=== PATIENT | female | born 1935 | race Caucasian/White ===

== ENCOUNTER → 2017-08-16 | Outpatient (CLI) | payer MEDICARE, BC ==
--- NOTE | 2017-08-17 13:15 | MM ---
Reason for exam: screening (asymptomatic). Last mammogram was performed 1 year and 1 month ago. History: Patient is postmenopausal and has history of breast cancer at age 80. Malignant MG pre op needle loc RT of the right breast, August 19, 2015. Malignant MG stereo VAD BX RT of the right breast, August 11, 2015. Took estrogen for 6 months beginning at age 57. Physical Findings: A clinical breast exam by your physician is recommended on an annual basis and results should be correlated with mammographic findings. MG 3D Screening Mammo W/Cad Bilateral CC and MLO view(s) were taken. Prior study comparison: July 22, 2016, bilateral MG 3d diag mammo w/cad SABINE. July 24, 2015, right breast MG work up mamm w CAD RT. The breast tissue is heterogeneously dense. This may lower the sensitivity of mammography. No significant changes when compared with prior studies. ASSESSMENT: Negative, BI-RAD 1 RECOMMENDATION: Follow-up diagnostic mammogram of both breasts in 1 year.
== END | disposition home or self-care (01) ==
LOC: RADMAMWWP 08:35
PROVIDERS: ATTEND Family Medicine
DX: Z12.31 Encounter for screening mammogram for malignant neoplasm of breast (principal)
CPT/HCPCS: 77063; G0202

== ENCOUNTER → 2018-10-08 | Outpatient (CLI) | payer MEDICARE, BC ==
--- NOTE | 2018-10-08 14:00 | MM ---
Reason for exam: additional evaluation requested from prior study. Last mammogram was performed 1 year and 2 months ago. History: Patient is postmenopausal and has history of breast cancer at age 80. Malignant MG pre op needle loc RT of the right breast, August 19, 2015. Malignant MG stereo VAD BX RT of the right breast, August 11, 2015. Took estrogen for 6 months beginning at age 57. Physical Findings: Nurse did not find any significant physical abnormalities on exam. MG 3D Diag Mammo W/Cad SABINE Bilateral CC and MLO view(s) were taken. XCCL view(s) were taken of the right breast. Prior study comparison: August 16, 2017, bilateral MG 3d screening mammo w/cad. July 22, 2016, bilateral MG 3d diag mammo w/cad SABINE. The breast tissue is heterogeneously dense. This may lower the sensitivity of mammography. No significant changes when compared with prior studies. ASSESSMENT: Benign, BI-RAD 2 RECOMMENDATION: Follow-up diagnostic mammogram of both breasts in 1 year.
--- NOTE | 2018-10-08 15:38 | BD ---
EXAMINATION TYPE: Axial Bone Density DATE OF EXAM: 10/08/2018 CLINICAL HISTORY: Screening for osteoporosis, Z 13.820 Height: 59inches Weight: 133 FRAX RISK QUESTIONS: Alcohol (3 or more units per day): no Family History (Parent hip fracture): no Glucocorticoids (More than 3mos): as needed...patient has not used for about a year (Ex: prednisone, prednisolone, methylprednisolone, dexamethasone, and hydrocortisone). History of Fracture in Adulthood: ribs Secondary Osteoporosis: 1. Type 1 Diabetes: no 2. Hyperthyroidism: no 3. Menopause before 45: no 4. Malnutrition: no 5. Chronic liver disease: no Rheumatoid Arthritis: yes Current Tobacco Use: no RISK FACTORS HISTORY OF: Family History of Osteoporosis: unsure Active: yes Diet low in dairy products/other sources of calcium: at least one serving a day Postmenopausal woman: yes Take estrogen and/or progesterone medications: not now How long: about 6 months Lost more than 2 inches in height since high school: no Frequent falls: no Poor Health: no Hyperparathyroidism: no Adrenal Insufficiency: no MEDICATIONS: Prednisone or other steroids: as needed, patient has not used for over a year Thyroid Medications: no Osteoporosis Medications: no Additional Medications: blood pressure, cholesterol , pill for CA,; Antineoplastic Additional History: Breast CA age 80 EXAM MEASUREMENTS: Bone mineral densitometry was performed using the [employer] System. Bone mineral density as measured about the Lumbar spine is: ----- L1-L4(G/cm2): 1.278 T Score Values are as follows: ----- L2: 0.4 ----- L3: 1.5 ----- L4: 1.4 ----- L1-L4: 0.8 Bone mineral density has: Increased 1.6% since study of: 10/06/2016 Bone mineral density about the R hip (g/cm2): 1.052 Bone mineral density about the L hip (g/cm2): 1.058 T Score values are as follows: -----R Neck: 0.1 -----L Neck: 0.1 -----R Total: 1.1 -----L Total: 1.3 Bone mineral density has: Decreased -2.7% since study of: 10/06/2016 IMPRESSION: Normal (Values between +1 and -1 indicate normal bone mass). Consider repeating this study in 5 year s or sooner if there is some new clinical indication. NOTE: T-SCORE=SD OF THE YOUNG ADULT MEAN.
== END | disposition home or self-care (01) ==
LOC: RADMAMWWP 12:37
PROVIDERS: ATTEND Family Medicine
DX: C50.919 Malignant neoplasm of unspecified site of unspecified female breast (principal); Z13.820 Encounter for screening for osteoporosis
CPT/HCPCS: 77080; 77066; G0279; 77062

== ENCOUNTER → 2019-10-30 | Outpatient (CLI) | payer BC, MEDICARE ==
--- NOTE | 2019-10-31 09:50 | MM ---
Reason for exam: additional evaluation requested from prior study. Last mammogram was performed 1 year and 1 month ago. History: Patient is postmenopausal and has history of breast cancer at age 80. Family history of breast cancer in daughter at age 62. Malignant MG pre op needle loc RT of the right breast, August 19, 2015. Malignant MG stereo VAD BX RT of the right breast, August 11, 2015. Took estrogen for 6 months beginning at age 57. Physical Findings: Nurse did not find any significant physical abnormalities on exam. MG 3D Diag Mammo W/Cad SABINE Bilateral CC and MLO view(s) were taken. Prior study comparison: October 08, 2018, bilateral MG 3d diag mammo w/cad SABINE. August 16, 2017, bilateral MG 3d screening mammo w/cad. The breast tissue is heterogeneously dense. This may lower the sensitivity of mammography. Benign appearing bilateral calcifications. No suspicious abnormality. Post surgical change on the right breast. These results were verbally communicated with the patient and result sheet given to the patient on 10/30/19. ASSESSMENT: Benign, BI-RAD 2 RECOMMENDATION: Follow-up diagnostic mammogram of both breasts in 1 year.
== END | disposition home or self-care (01) ==
LOC: RADMAMWWP 12:20
PROVIDERS: ATTEND Family Medicine
DX: R92.8 Other abnormal and inconclusive findings on diagnostic imaging of breast (principal)
CPT/HCPCS: 77066; G0279; 77062

== ENCOUNTER → 2020-11-25 | Outpatient (CLI) | payer MEDICARE ==
--- NOTE | 2020-11-30 11:00 | MM ---
Reason for exam: screening (asymptomatic). Last mammogram was performed 1 year and 1 month ago. History: Patient is postmenopausal and has history of breast cancer at age 80. Family history of breast cancer in daughter at age 62. Malignant MG pre op needle loc RT of the right breast, August 19, 2015. Malignant MG stereo VAD BX RT of the right breast, August 11, 2015. Took estrogen for 6 months beginning at age 57. Physical Findings: A clinical breast exam by your physician is recommended on an annual basis and results should be correlated with mammographic findings. MG 3D Screening Mammo W/Cad Bilateral CC and MLO view(s) were taken. Prior study comparison: October 30, 2019, bilateral MG 3d diag mammo w/cad SABINE. October 08, 2018, bilateral MG 3d diag mammo w/cad SABINE. The breast tissue is heterogeneously dense. This may lower the sensitivity of mammography. Gradually increasing grouped calcifications right posterior upper outer quadrant. ASSESSMENT: Incomplete: need additional imaging evaluation, BI-RAD 0 RECOMMENDATION: Special view mammogram of the right breast. (magnification view) If lesion persists on supplemental views, image directed ultrasound is recommended. [facility] will attempt to contact patient to return for supplemental views and ultrasound if indicated.
== END | disposition home or self-care (01) ==
LOC: RADMAMWWP 09:46
PROVIDERS: ATTEND Family Medicine
DX: Z12.31 Encounter for screening mammogram for malignant neoplasm of breast (principal)
CPT/HCPCS: 77063; 77067

== ENCOUNTER → 2020-12-14 | Outpatient (CLI) | payer MEDICARE ==
--- NOTE | 2020-12-15 11:52 | MM ---
Reason for exam: additional evaluation requested from abnormal screening. Last mammogram was performed 1 month ago. History: Patient is postmenopausal and has history of breast cancer at age 80. Family history of breast cancer in daughter at age 62. Malignant MG pre op needle loc RT of the right breast, August 19, 2015. Malignant MG stereo VAD BX RT of the right breast, August 11, 2015. Took estrogen for 6 months beginning at age 57. Took antineoplastic for 5 years. Physical Findings: Nurse did not find any significant physical abnormalities on exam. MG 3D Work Up W/Cad RT Spot compression CC, spot compression LM, and ML view(s) were taken of the right breast. Prior study comparison: November 25, 2020, bilateral MG 3d screening mammo w/cad. October 30, 2019, bilateral MG 3d diag mammo w/cad SABINE. October 08, 2018, bilateral MG 3d diag mammo w/cad SABINE. August 16, 2017, bilateral MG 3d screening mammo w/cad. The breast tissue is heterogeneously dense. This may lower the sensitivity of mammography. Grouped heterogeneous calcifications posterior upper outer quadrant have increased, biopsy recommended. These results were verbally communicated with the patient and result sheet given to the patient on 12/14/20. ASSESSMENT: Suspicious, BI-RAD 4 RECOMMENDATION: Stereotactic core biopsy of the right breast. Called Dr. Clark's office with mammographic findings and has scheduled an appointment for the patient for 12/24/20 at 10:[address] Camarillo. PRELIMINARY REPORT CALLED AND FAXED TO DR. CAMARILLO ON 12/15/20.
== END | disposition home or self-care (01) ==
LOC: RADMAMWWP 13:59
PROVIDERS: ATTEND Family Medicine
DX: R92.8 Other abnormal and inconclusive findings on diagnostic imaging of breast (principal)
CPT/HCPCS: 77065; G0279; 77061

== ENCOUNTER → 2021-01-11 | Day surgery (SDC) | payer MEDICARE ==
[2021-01-11 07:27] VITALS: RESP 16; TEMP 97.8
[2021-01-11 08:43] VITALS: BP 136/73; PULSE 69
--- NOTE | 2021-01-11 11:22 | PCN ---
PROCEDURE NOTE DATE OF SERVICE: 01/11/2021 PREOPERATIVE DIAGNOSIS: Abnormal mammogram, right breast. POSTOPERATIVE DIAGNOSIS: Abnormal mammogram, right breast. PROCEDURE: Right stereotactic breast biopsy with marker placement. ANESTHESIA: Local anesthetic. COMPLICATIONS: None. SPECIMEN: Breast tissue. FINDINGS AND PROCEDURE: The patient is an 85-year-old female who had a mammogram performed showing a change with microcalcifications in the breast. She is taken to the stereotactic suite where the area of concern is marked by the radiologist. The breast was then prepped. The needle is placed in the appropriate position. Local anesthetic was instilled in the skin and breast tissue. A skin josefa was made and the needle was advanced the appropriate depth. Pre and postfire films were obtained showing the needle to be in good position. Multiple vacuum-assisted automated cores were then obtained. The specimen mammography did show multiple calcifications had been removed. A marker is then placed and the needle is withdrawn. The mammogram showed the needle to be in good placement. Pressure is held and a dressing was applied. She tolerated the procedure without difficulty and follow up with me in the office for further recommendations. MMODL / IJN: [id number] /
--- NOTE | 2021-01-11 11:34 | MM ---
EXAMINATION TYPE: MG stereo VAD BX RT DATE OF EXAM: 01/11/2021 COMPARISON: 11/25/2020 and 12/14/2020 CLINICAL HISTORY: 85-year-old female referred for stereotactic core needle biopsy of right breast microcalcifications. TECHNIQUE: Stereotactic guided core biopsy of the posterior upper outer quadrant right breast microcalcifications. FINDINGS: The procedure of stereotactic guided core biopsy was explained to the patient. Benefits, alternatives, and risks were discussed. An informed consent was then obtained. [facility] was [facility]. Shortness pathway was a lateral approach. I performed the localization, then surgeon, Dr. Camarillo performed the remainder of the procedure. A vacuum assisted biopsy gun was used to obtain multiple core samples. The patient tolerated the procedure well without any immediate complication. The patient was kept in the radiology department for short stay after the procedure and then discharged home in stable condition. Targeted calcifications are identified in specimen mammogram. Post biopsy mammogram shows clip migration 3 cm laterally and 1 cm superiorly. Some minimal residual calcifications indicate the site of biopsy. IMPRESSION: SUCCESSFUL, UNCOMPLICATED STEREOTACTIC GUIDED CORE BIOPSY OF RIGHT BREAST POSTERIOR UPPER OUTER QUADRANT MICROCALCIFICATIONS. NOTE CLIP MIGRATION (3 CM LATERAL AND 1 CM SUPERIOR MIGRATION). FULL PATHOLOGY RESULTS TO FOLLOW. 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 Recommendation Surgical consult of the right breast. MTDD
== END ==
LOC: RADMAMWWP 07:10
PROVIDERS: ATTEND Surgery
DX: D05.11 Intraductal carcinoma in situ of right breast (principal)
CPT/HCPCS: 88305; 88342; 88341; 19081; A4648; J2001

== ENCOUNTER → 2021-01-25 | Outpatient (CLI) | payer MEDICARE | END | disposition home or self-care (01) | LOC: LABWHC1 12:58 | PROVIDERS: ATTEND Surgery | DX: Z20.822 Contact with and (suspected) exposure to COVID-19 (principal) | CPT/HCPCS: U0003; C9803; U0005 ==

== ENCOUNTER 2021-02-01 10:17 | Day surgery (SDC) | payer MEDICARE ==
[2021-01-25 14:56] VITALS: BMI 28.3
[~2021-02-01 10:17] MED LIST: DEXAMETHASONE SOD PHOSPHATE 4 MG/ML 1 ML VIAL IV ONE; HYDROmorphone 0.5 MG/0.5 ML SYRINGE IVP PRN; LACTATED RINGERS 1,000 ML IV SCH; LIDOCAINE 1% (10MG/ML) FOR IV START INTRADERMA PRN; MIDAZOLAM 2 MG/2 ML VIAL IV PRN; ONDANSETRON 4 MG/2 ML VIAL IVP ONE; Pre Op ABX Message 1 EACH MISC MISCELLANE ONE
[2021-02-01 11:04] LABS: Glucose,Whole Blood 116 mg/dL (75-99)
[2021-02-01] MEDS ORDERED: ALPRAZolam 0.25 MG TAB ONE (11:41)
[2021-02-01] MEDS ORDERED: LIDOCAINE 1% INJ 10MG/ML (20 ML MDV) SQ ONE (12:07)
[2021-02-01] MEDS ORDERED: LIDOCAINE 1% INJ 10MG/ML (20 ML MDV) ONE (12:45)
[2021-02-01] MEDS ORDERED: fentaNYL (PF) 50 MCG/ML 2 ML AMP ONE (12:45)
[2021-02-01] MEDS ORDERED: PROPOFOL 10 MG/ML 20 ML VIAL IV ONE (12:45)
[2021-02-01] MEDS ORDERED: ePHEDrine SULFATE/0.9% NACL/PF 50 MG/5 ML SYRINGE IV ONE (12:45)
[2021-02-01] MEDS ORDERED: BUPIVACAIN-EPI 0.5%-1:200,000 30 ML VIAL SQ ONE ×2 (13:16)
--- NOTE | 2021-02-01 13:47 | P.OP ---
Date of Procedure: 02/01/21 Preoperative Diagnosis: DCIS right breast Postoperative Diagnosis: DCIS right breast Procedure(s) Performed: Needle localized excisional biopsy right breast Anesthesia: FRANNIE Surgeon: Sade Camarillo Estimated Blood Loss (ml): 1 Pathology: other Condition: stable Disposition: PACU Indications for Procedure: The patient is an 85 year old female who had a stereotactic biopsy showing DCIS for which an excisional biopsy was recommended Description of Procedure: The patient had the area of concern needle localized by the radiologist. She is then taken to the OR where she is prepped and draped in the usual sterile manner. Local anesthetic is instilled into the skin and breast tissue. A small skin incision was made. The breast tissue is sharply excised down to the end of the needle and guidewire. The tissue around the end of the guidewire is then dissected free. The guidewire was brought up through the incision and the specimen is removed from the breast. The specimen is tagged and sent for mammography. Specimen mammography showed the area of concern to be within the excised specimen. The lumpectomy was down to the pectoralis fascia. The majority of the breast was fatty tissue, with some denser components. Small bleeding points were then controlled with electrocautery. The skin was closed with 4-0 Vicryl in a subcuticular manner. Steri-Strips and dressings were applied. She tolerated the procedure without difficulty and was taken recovery room in satisfactory condition. According to or personnel, all counts WERE correct. Plan - Discharge Summary Discharge Rx Participant: No New Discharge Prescriptions: New traMADol HCL 1 - 2 mg PO Q6HR PRN #10 tablet PRN Reason: Pain No Action Ibuprofen [Advil] 400 mg PO DIRECTED PRN PRN Reason: Pain amLODIPine [Norvasc] 5 mg PO HS Simvastatin [Zocor] 10 mg PO HS Multivitamins, Thera [Theragran] 1 each PO DAILY Cholecalciferol [Vitamin D3] 3,000 unit PO DAILY Aspirin EC [Ecotrin] 81 mg PO HS Lisinopril-Hctz 20-25 mg [Zestoretic 20-25] 1 each PO QAM Biotin 5 mg PO DAILY Benadryl (Unknown Dose) 1 tab PO HS PRN PRN Reason: Sinus Symptoms Discharge Medication List Aspirin EC [Ecotrin] 81 mg PO HS 08/17/15 [History] Benadryl (Unknown Dose) 1 tab PO HS PRN 08/17/15 [History] Biotin 5 mg PO DAILY 08/17/15 [History] Cholecalciferol [Vitamin D3] 3,000 unit PO DAILY 08/17/15 [History] Ibuprofen [Advil] 400 mg PO DIRECTED PRN 08/17/15 [History] Lisinopril-Hctz 20-25 mg [Zestoretic 20-25] 1 each PO QAM 08/17/15 [History] Multivitamins, Thera [Theragran] 1 each PO DAILY 08/17/15 [History] Simvastatin [Zocor] 10 mg PO HS 08/17/15 [History] amLODIPine [Norvasc] 5 mg PO HS 08/17/15 [History] traMADol HCL 1 - 2 mg PO Q6HR PRN #10 tablet 02/01/21 [Rx] Follow up Appointment(s)/Referral(s): Sade Camarillo DO [Doctor of Osteopathic Medicine] - 1 Week Activity/Diet/Wound Care/Special Instructions: Ice to the incision for 24 hours. Keep the dressing on until Monday. Starting Monday the dressing may be removed and you may shower. Where a well supporting bra. Expect some bruising. Call if questions or concerns Discharge Disposition: HOME SELF-CARE
[2021-02-01 13:53] VITALS: TEMP 97.6
[2021-02-01 14:56] VITALS: BP 136/74; PULSE 67; RESP 18
--- NOTE | 2021-02-01 17:33 | MM ---
EXAMINATION TYPE: MG pre op needle loc RT, MG surgical specimen RT DATE OF EXAM: 02/01/2021 COMPARISON: 12/14/2020 and 11/25/2020. 01/11/2021. CLINICAL HISTORY: 84-year-old female referred for needle localization for excision of biopsy-proven D CIS in the upper outer quadrant of the right breast. TECHNIQUE: Needle localization with wire placement and surgical excision of area of concern in the up per outer quadrant of the right breast. FINDINGS: The procedure of needle localization with wire placement and than surgical excision was exp lained to the patient. Benefits, alternatives, and risks were discussed. An informed consent was th en obtained. We note the lateral clip migration on the previous postbiopsy mammogram images. The residual microcal cifications were targeted for excision rather than the clip. The shortest pathway for procedure was chosen. Shortest pathway was a lateral approach. The overlyin g skin was prepped and draped in usual sterile fashion. Lidocaine was used as anesthetic into the sk in and subcutaneous tissue up to the level of area of concern. A 7 cm Kopans needle was used. It wa s placed via a lateral approach under mammographic guidance. Subsequent 90 degrees mammogram show th e needle to be in satisfactory position relative to the targeted area. At this point, wire was deplo yed. The needle was left in place per Dr. Camarillo's request. A cup was secured over the wire-needle com bination. Images were marked for surgeon. The patient tolerated the procedure well without any immediate complication. The patient was kept in the radiology department for short stay after the procedure and then taken to surgery for surgical e xcision. Targeted calcifications and wire are identified in specimen mammogram. The clip which had migrated a nd was located more laterally is not included in the specimen. This is satisfactory. The patient was kept in hospital for short stay after the procedure and then discharged home in stable condition. IMPRESSION: Successful, uncomplicated needle localization with wire placement and surgical excision of biopsy-pro kaykay right upper outer quadrant microcalcifications/DCIS. Note that the postbiopsy clip which had migr ated is not included in the specimen, so a biopsy clip will be visualized on future mammograms. Full pathology results to follow.
== END 2021-02-01 15:17 | disposition home or self-care (01) ==
LOC: OR 10:17
PROVIDERS: ATTEND Surgery
DX: D05.11 Intraductal carcinoma in situ of right breast (principal); Z79.82 Long term (current) use of aspirin; Z79.899 Other long term (current) drug therapy
CPT/HCPCS: 19301; 76098; 19281; J2405; J2001; J3010; J2704

== ENCOUNTER → 2021-04-07 | Outpatient (CLI) | payer MEDICARE ==
--- NOTE | 2021-04-07 15:40 | XR ---
EXAMINATION TYPE: XR wrist complete BILATERAL DATE OF EXAM: 04/07/2021 CLINICAL HISTORY: pain TECHNIQUE: Frontal, lateral and oblique images of the left wrist are obtained. COMPARISON: None. FINDINGS: There is no acute fracture/dislocation evident. The joint spaces appear narrowed. The ov erlying soft tissue appears unremarkable. IMPRESSION: There is no acute fracture or dislocation seen. ICD 10 NO FRACTURE, INITIAL EVALUATION
== END | disposition home or self-care (01) ==
LOC: RADXRMAIN 14:47
PROVIDERS: ATTEND Family Medicine
DX: M25.532 Pain in left wrist (principal); M25.531 Pain in right wrist

== ENCOUNTER → 2021-11-01 | Outpatient (CLI) | payer MEDICARE ==
--- NOTE | 2021-11-01 11:50 | MM ---
Reason for exam: additional evaluation requested from prior study. Last mammogram was performed 11 months ago. History: Patient is postmenopausal and has history of breast cancer at age 85. Family history of breast cancer in daughter at age 62. Malignant MG pre op needle loc RT of the right breast, February 01, 2021. Lumpectomy of the right breast, February 01, 2021. Malignant MG stereo VAD BX RT of the right breast, January 11, 2021. Malignant MG pre op needle loc RT of the right breast, August 19, 2015. Malignant MG stereo VAD BX RT of the right breast, August 11, 2015. Took estrogen for 6 months beginning at age 57. Took antineoplastic for 5 years beginning at age 80. Physical Findings: Nurse did not find any significant physical abnormalities on exam. MG 3D Diag Mammo W/Cad SABINE Bilateral CC and MLO view(s) were taken. XCCL view(s) were taken of the right breast. Prior study comparison: December 14, 2020, right breast MG 3d work up w/cad RT. November 25, 2020, bilateral MG 3d screening mammo w/cad. The breast tissue is heterogeneously dense. This may lower the sensitivity of mammography. Stable benign calcifications. There is no discrete abnormality. No significant new findings when compared with previous films. These results were verbally communicated with the patient and result sheet given to the patient on 11/01/21. ASSESSMENT: Benign, BI-RAD 2 RECOMMENDATION: Routine screening mammogram of both breasts in 1 year.
== END | disposition home or self-care (01) ==
LOC: RADMAMWWP 10:36
PROVIDERS: ATTEND Radiology Radiation Oncology
DX: R92.1 Mammographic calcification found on diagnostic imaging of breast (principal); R92.2 Inconclusive mammogram; Z85.3 Personal history of malignant neoplasm of breast; Z80.3 Family history of malignant neoplasm of breast; Z78.0 Asymptomatic menopausal state
CPT/HCPCS: 77066; G0279; 77062

== ENCOUNTER → 2022-03-07 | Outpatient (CLI) | payer MEDICARE ==
--- NOTE | 2022-03-08 16:47 | BD ---
EXAMINATION TYPE: Axial Bone Density DATE OF EXAM: 03/07/2022 COMPARISON: 10/08/2018 CLINICAL HISTORY: 86 years year old Female. ICD-10 CODE: Z78.0 ASYMPTOMATIC MENOPAUSAL STATE Height: 59 IN Weight: 145 LBS FRAX RISK QUESTIONS: Rheumatoid Arthritis: YES RISK FACTORS HISTORY OF: Active: LIMITED Postmenopausal woman: AGE 52 MEDICATIONS: Additional Medications: CALCIUM, VIT D, BLOOD PRESSURE MEDS, CHOLESTEROL MEDS, Additional History: BREAST CANCER EXAM MEASUREMENTS: Bone mineral densitometry was performed using the [employer] System. Bone mineral density as measured about the Lumbar spine is: ----- L1-L4(G/cm2): 1.285 T Score Values are as follows: ----- L1: -0.2 ----- L2: 1.5 ----- L3: 1.5 ----- L4: 0.5 ----- L1-L4: 0.9 Bone mineral density has: Decreased -0.1% since study of: 10/08/2018 Bone mineral density about the R hip (g/cm2): 1.058 Bone mineral density about the L hip (g/cm2): 1.048 T Score values are as follows: -----R Neck: 0.1 -----L Neck: 0.1 -----R Total: 1.2 -----L Total: 1.4 Bone mineral density has: Increased 1.3% since study of: 10/08/2018 FRAX%s: The graph provided illustrates a 15.7 chance for a major osteoporotic fx and a 2.4 chance for the hips probability for fx in 10 years time. IMPRESSION: Normal (Values between +1 and -1 indicate normal bone mass). Consider repeating this study in 5 year s or sooner if there is some new clinical indication. NOTE: T-SCORE=SD OF THE YOUNG ADULT MEAN.
== END | disposition home or self-care (01) ==
LOC: RADBDWWP 15:33
PROVIDERS: ATTEND Family Medicine
DX: Z78.0 Asymptomatic menopausal state (principal)
CPT/HCPCS: 77080

== ENCOUNTER 2022-03-10 14:41 | Inpatient (IN) | payer MEDICARE ==
--- NOTE | 2022-03-10 15:10 | ED ---
General Adult HPI - General Chief complaint: Shortness of Breath Stated complaint: PAULA Time Seen by Provider: 03/10/22 14:45 Source: patient, family, RN notes reviewed, old records reviewed Mode of arrival: wheelchair Limitations: no limitations - History of Present Illness Initial comments: This is an 86-year-old female who states she's been getting progressively more more short of breath over the last 6 months per patient states over the last month is been rapidly progressing and over the last 4 days she can barely walk 3 steps across the floor without being significantly short of breath. Patient went to see her primary medical care doctor today in the primary medical care doctor sent her to the emergency department to be evaluated. Patient denies any chest pain but she does complain of some posterior left thoracic pain. Patient states that sharp in nature. Patient denies any recent fever chills or cough. Patient denies abdominal pain patient denies nausea vomiting diarrhea. Patient denies any lightheadedness or dizziness. Patient states she used to be a smoker 24 years ago when she smoked for approximately 40 years. - Related Data Home Medications Medication Instructions Recorded Confirmed Aspirin EC [Ecotrin] 81 mg PO DAILY 08/17/15 03/10/22 Lisinopril-Hctz 20-25 mg 1 tab PO DAILY 08/17/15 03/10/22 [Zestoretic 20-25] Multivitamins, Thera [Theragran] 1 tab PO DAILY 08/17/15 03/10/22 Simvastatin [Zocor] 10 mg PO HS 08/17/15 03/10/22 amLODIPine [Norvasc] 5 mg PO HS 08/17/15 03/10/22 Ascorbic Acid [Vitamin C] 500 mg PO BID 03/10/22 03/10/22 Calcium Carbonate [Calcium] 600 mg PO BID 03/10/22 03/10/22 Cholecalciferol [Vitamin D3 (125 125 mcg PO DAILY 03/10/22 03/10/22 Mcg = 5000 Iu)] Magnesium 250 mg PO BID 03/10/22 03/10/22 Allergies Allergy/AdvReac Type Severity Reaction Status Date / Time STEROID DOSE PACK Allergy Mild Rash/Hives Uncoded 03/10/22 16:07 Review of Systems ROS Statement: Those systems with pertinent positive or pertinent negative responses have been documented in the HPI. ROS Other: All systems not noted in ROS Statement are negative. Past Medical History Past Medical History: Cancer, Hyperlipidemia, Hypertension, Osteoarthritis (OA), Pneumonia Additional Past Medical History / Comment(s): HX PNEUMONIA X6, CANCER RT BREAST History of Any Multi-Drug Resistant Organisms: None Reported Past Surgical History: Breast Surgery, Cholecystectomy, Hysterectomy Additional Past Surgical History / Comment(s): RT BREAST BX.. Right breast lumpectomy Past Anesthesia/Blood Transfusion Reactions: No Reported Reaction, Motion Sickness Past Psychological History: Depression Smoking Status: Former smoker - Past Family History Sister(s) Family Medical History: Cancer Additional Family Medical History / Comment(s): OVARIAN CA Brother(s) Family Medical History: Cancer Additional Family Medical History / Comment(s): BROTHER #1 KIDNEY CA. BROTHER #2 PROSTATE CA Daughter(s) Family Medical History: Cancer Additional Family Medical History / Comment(s): OVARIAN CANCER, breast cancer Mother Family Medical History: Myocardial Infarction (MD) General Exam - General Exam Comments Initial Comments: GENERAL: Patient is well-developed and well-nourished. Patient is nontoxic and well- hydrated and is in mild distress. ENT: Neck is soft and supple. No significant lymphadenopathy is noted. Oropharynx is clear. Moist mucous membranes. Neck has full range of motion without eliciting any pain. EYES: The sclera were anicteric and conjunctiva were pink and moist. Extraocular movements were intact and pupils were equal round and reactive to light. Eyelids were unremarkable. PULMONARY: Unlabored respirations. Good breath sounds bilaterally. Diminished breath sounds left base CARDIOVASCULAR: There is a regular rate and rhythm without any murmurs gallops or rubs. ABDOMEN: Soft and nontender with normal bowel sounds. SKIN: Skin is clear with no lesions or rashes and otherwise unremarkable. NEUROLOGIC: Patient is alert and oriented x3. Cranial nerves II through XII are grossly intact. Motor and sensory are also intact. Normal speech, volume and content. Symmetrical smile. MUSCULOSKELETAL: Normal extremities with adequate strength and full range of motion. LYMPHATICS: No significant lymphadenopathy is noted PSYCHIATRIC: Normal psychiatric evaluation. Limitations: no limitations Course Vital Signs 03/10/22 03/10/22 03/10/22 14:43 14:55 14:56 Temperature 95.9 F L Pulse Rate 94 Respiratory 28 H 22 Rate Blood Pressure 163/89 O2 Sat by Pulse 90 L 94 L Oximetry 03/10/22 03/10/22 03/10/22 15:00 15:01 16:00 Temperature Pulse Rate 90 90 86 Respiratory 20 18 20 Rate Blood Pressure 143/89 138/101 O2 Sat by Pulse 97 98 97 Oximetry 03/10/22 17:00 Temperature Pulse Rate 75 Respiratory 18 Rate Blood Pressure 129/79 O2 Sat by Pulse 96 Oximetry Medical Decision Making - Medical Decision Making EKG shows sinus rhythm at [address] interval is 153 QRSs 83 QT interval is 353 QTC is 406. Patient's EKG shows no ST segment elevation or depression. Chest x-ray shows a large left-sided pleural effusion. Patient had an elevated d-dimer psychotic CAT scan of the chest that showed the same large effusion and no other acute issue. I spoke with Dr. Javed he agreed to admit the patient admitted the patient I consult pulmonary. - Lab Data Result diagrams: 03/10/22 15:08 03/10/22 15:08 Lab Results 03/10/22 03/10/22 03/10/22 Range/Units 15:08 15:08 15:08 WBC 8.8 (3.8-10.6) k/uL RBC 4.90 (3.80-5.40) m/uL Hgb 16.4 H (11.4-16.0) gm/dL Hct 47.3 H (34.0-46.0) % MCV 96.6 (80.0-100.0) fL MCH 33.6 (25.0-35.0) pg MCHC 34.8 (31.0-37.0) g/dL RDW 13.0 (11.5-15.5) % Plt Count 344 (150-450) k/uL MPV 7.1 Neutrophils % 77 % Lymphocytes % 14 % Monocytes % 5 % Eosinophils % 1 % Basophils % 1 % Neutrophils # 6.8 (1.3-7.7) k/uL Lymphocytes # 1.3 (1.0-4.8) k/uL Monocytes # 0.5 (0-1.0) k/uL Eosinophils # 0.1 (0-0.7) k/uL Basophils # 0.0 (0-0.2) k/uL PT 10.7 (9.0-12.0) sec INR 1.0 (<1.2) APTT 23.5 (22.0-30.0) sec D-Dimer 2.45 H (<0.60) mg/L FEU Sodium 136 L (137-145) mmol/L Potassium 3.7 (3.5-5.1) mmol/L Chloride 96 L (98-107) mmol/L Carbon Dioxide 29 (22-30) mmol/L Anion Gap 11 mmol/L BUN 15 (7-17) mg/dL Creatinine 0.89 (0.52-1.04) mg/dL Est GFR (CKD-EPI)AfAm 69 (>60 ml/min/1.73 sqM) Est GFR (CKD-EPI)NonAf 60 (>60 ml/min/1.73 sqM) Glucose 157 H (74-99) mg/dL Plasma Lactic Acid Wesly (0.7-2.0) mmol/L Calcium 9.6 (8.4-10.2) mg/dL Magnesium 1.9 (1.6-2.3) mg/dL Total Bilirubin 0.7 (0.2-1.3) mg/dL AST 32 (14-36) U/L ALT 24 (4-34) U/L Alkaline Phosphatase 69 (38-126) U/L Troponin I (0.000-0.034) ng/mL NT-Pro-B Natriuret Pep pg/mL Total Protein 7.5 (6.3-8.2) g/dL Albumin 4.5 (3.5-5.0) g/dL 03/10/22 03/10/22 03/10/22 Range/Units 15:08 15:08 15:08 WBC (3.8-10.6) k/uL RBC (3.80-5.40) m/uL Hgb (11.4-16.0) gm/dL Hct (34.0-46.0) % MCV (80.0-100.0) fL MCH (25.0-35.0) pg MCHC (31.0-37.0) g/dL RDW (11.5-15.5) % Plt Count (150-450) k/uL MPV Neutrophils % % Lymphocytes % % Monocytes % % Eosinophils % % Basophils % % Neutrophils # (1.3-7.7) k/uL Lymphocytes # (1.0-4.8) k/uL Monocytes # (0-1.0) k/uL Eosinophils # (0-0.7) k/uL Basophils # (0-0.2) k/uL PT (9.0-12.0) sec INR (<1.2) APTT (22.0-30.0) sec D-Dimer (<0.60) mg/L FEU Sodium (137-145) mmol/L Potassium (3.5-5.1) mmol/L Chloride (98-107) mmol/L Carbon Dioxide (22-30) mmol/L Anion Gap mmol/L BUN (7-17) mg/dL Creatinine (0.52-1.04) mg/dL Est GFR (CKD-EPI)AfAm (>60 ml/min/1.73 sqM) Est GFR (CKD-EPI)NonAf (>60 ml/min/1.73 sqM) Glucose (74-99) mg/dL Plasma Lactic Acid Wesly 1.6 (0.7-2.0) mmol/L Calcium (8.4-10.2) mg/dL Magnesium (1.6-2.3) mg/dL Total Bilirubin (0.2-1.3) mg/dL AST (14-36) U/L ALT (4-34) U/L Alkaline Phosphatase (38-126) U/L Troponin I <0.012 (0.000-0.034) ng/mL NT-Pro-B Natriuret Pep 196 pg/mL Total Protein (6.3-8.2) g/dL Albumin (3.5-5.0) g/dL Disposition Clinical Impression: Pleural effusion, Dyspnea, Hypoxia Disposition: ADMITTED IP TO THIS HOSP Referrals: Violeta Clark MD [Primary Care Provider] - 1-2 days Time of Disposition: 19:17
[2022-03-10 15:17] LABS: Basophils % (A) 1 %; Eosinophils # (A) 0.1 k/uL (0-0.7); Eosinophils % (A) 1 %; HCT 47.3 % (34.0-46.0); HGB 16.4 gm/dL (11.4-16.0); Lymphocytes # (A) 1.3 k/uL (1.0-4.8); Lymphocytes % (A) 14 %; MCH 33.6 pg (25.0-35.0); MCHC 34.8 g/dL (31.0-37.0); MCV 96.6 fL (80.0-100.0); Mean Platelet Volume 7.1; Monocytes # (A) 0.5 k/uL (0-1.0); Monocytes % (A) 5 %; Neutrophils # (A) 6.8 k/uL (1.3-7.7); Neutrophils % (A) 77 %; Platelet Count 344 k/uL (150-450); WBC 8.8 k/uL (3.8-10.6)
[2022-03-10 15:29] LABS: Albumin 4.5 g/dL (3.5-5.0); Calcium 9.6 mg/dL (8.4-10.2); Magnesium 1.9 mg/dL (1.6-2.3); Potassium 3.7 mmol/L (3.5-5.1); Total Bilirubin 0.7 mg/dL (0.2-1.3); Total Protein 7.5 g/dL (6.3-8.2)
[2022-03-10 15:31] LABS: Partial Thromboplastin Time 23.5 sec (22.0-30.0); Prothrombin Time 10.7 sec (9.0-12.0)
--- NOTE | 2022-03-10 15:43 | XR ---
EXAMINATION TYPE: XR chest 2V DATE OF EXAM: 03/10/2022 COMPARISON: NONE HISTORY: Shortness of breath TECHNIQUE: Frontal and lateral views of the chest are obtained. FINDINGS: Large left-sided pleural effusion with suspected adjacent pulmonary atelectasis. Underlying left lung lesion cannot be excluded. Mild cardiomediastinal shift to the right side. No right-sided pleural ef fusion. Suspected 8 mm calcified granuloma at the medial aspect of the right lung base. No definite pneumotho rax. Cardiac size cannot be properly assessed. Aortic atherosclerotic calcifications. Questionable ba ckground of COPD changes. IMPRESSION: Large left-sided pleural effusion, for further workup. Other findings as described above.
--- NOTE | 2022-03-10 17:14 | CT ---
EXAMINATION TYPE: CT chest angio for PE CT DLP: 285.7 mGycm, Automated exposure control for dose reduction was used. DATE OF EXAM: 03/10/2022 4:59 PM COMPARISON: Chest radiograph from same day. CLINICAL INDICATION:Female, 86 years old with history of Difficulty breathing, elevated d-dimer; Diff iculty breathing. TECHNIQUE/CONTRAST: CTA scan of the thorax is performed with IV Contrast, patient injected with 80 mL of Isovue 370, pulm onary embolism protocol. MIP images are created and reviewed. FINDINGS: Pulmonary Artery: There is no evidence for a filling defect within the pulmonary vasculature to sugge st acute pulmonary embolism. The pulmonary artery is of normal size. Lungs/Pleura: Persistent large left pleural effusion with associated atelectasis. Minimal aeration of the left upper lobe . Right lung demonstrates nodular like area of consolidation within the right up per lobe posteriorly along with scattered groundglass opacities most pronounced in the middle lobe. T he more consolidation area measures up to 13 mm. Groundglass area measures approximately 18 mm. Airway: Large airways are patent. Heart: Within normal limits for size.. Vasculature: No evidence of aortic aneurysm. Mediastinum: No gross evidence of adenopathy. Musculoskeletal: No acute osseous abnormalities. Multilevel disc degeneration changes are present. Soft Tissues: Unremarkable. Lower neck: No significant findings. Upper Abdomen: Scattered calcified granulomas in the liver. The uterus surgically absent. Scattered g ranulomas in the spleen. IMPRESSION: 1. No evidence of pulmonary embolism. 2. Large left pleural effusion with near complete is atelectasis of the left lung. 3. Left upper lobe nodule which is indeterminate short-term follow-up in 3 months is recommended to e nsure stability. Additional follow-up of right middle lobe groundglass nodule at the same time is rec ommended.
[2022-03-10] MEDS ORDERED: SODIUM CHLORIDE 0.9% 1,000 ML IV ONE (19:18)
[2022-03-10] MEDS ORDERED: ATORVASTATIN 10 MG TAB PO SCH (21:00)
[2022-03-10] MEDS ORDERED: amLODIPine 5 MG TAB PO SCH (21:00)
[2022-03-10] MEDS: CALCIUM CARBONATE 500 MG CHEWABLE PO SCH (21:57)
[2022-03-10] MEDS: ASCORBIC ACID 500 MG TAB PO SCH (21:57)
[2022-03-10] MEDS: MAGNESIUM OXIDE 400 MG TAB PO SCH (21:57)
[2022-03-11 07:30] VITALS: RESP 18
--- NOTE | 2022-03-11 08:14 | US ---
EXAMINATION TYPE: US chest DATE OF EXAM: 03/11/2022 COMPARISON: NONE chest x-ray from yesterday CLINICAL HISTORY: Markings for thoracentesis by pulmonary staff. pleural effusion TECHNIQUE: Targeted ultrasound of the posterior lower bilateral hemithoraces EXAM MEASUREMENTS: Right Pleural Effusion pocket size: 0cm Left Pleural Effusion pocket size: 9.9 cm Left skin surface to fluid distance: 3.0 cm Right side NOT marked for possible thoracentesis outside the dept. Left side marked for possible thoracentesis outside the dept. Pulmonologists are able to review the images in the patient?s EMR. No significant right-sided pleural effusion. Large left-sided pleural effusion. Findings correlate wi th x-ray one day earlier. IMPRESSIONS: As above.
[2022-03-11] MEDS ORDERED: ASPIRIN 81 MG PO SCH (09:00)
[2022-03-11] MEDS ORDERED: CHOLECALCIFEROL 125 MCG (5000 IU) TABLET PO SCH (09:00)
[2022-03-11] MEDS ORDERED: LISINOPRIL-HCTZ 20-25 MG 1 EACH TAB PO SCH (09:00)
[2022-03-11] MEDS ORDERED: MULTIVITAMINS, THERA 1 EACH TAB PO SCH (09:00)
[2022-03-11] MEDS ORDERED: guaiFENesin-Coden 100-10MG/5ML 10 ML CUP PO PRN (09:20)
[2022-03-11 09:21] LABS: Basophils # (A) 0.08 X 10*3/uL (0.00-0.10); Basophils % (A) 0.9 %; Eosinophils # (A) 0.24 X 10*3/uL (0.04-0.35); Eosinophils % (A) 2.6 %; HCT 41.8 % (37.2-46.3); HGB 14.1 g/dL (12.0-15.0); Immature Grans, Automated 0.4 %; Lymphocytes # (A) 1.23 X 10*3/uL (0.90-5.00); Lymphocytes % (A) 13.5 %; MCH 32.3 pg (27.0-32.0); MCHC 33.7 g/dL (32.0-37.0); MCV 95.9 fL (80.0-97.0); Mean Platelet Volume 9.6 fL (9.5-12.2); Monocytes # (A) 1.03 X 10*3/uL (0.20-1.00); Monocytes % (A) 11.3 %; NRBC Per 100 WBC 0 /100 WBCS (0.0-0.0); Neutrophils # (A) 6.51 X 10*3/uL (1.80-7.70); Neutrophils % (A) 71.3 %; Platelet Count 300 X 10*3/uL (140-440); RBC 4.36 X 10*6/uL (4.10-5.20); RDW 12.5 % (11.5-14.5); WBC 9.13 X 10*3/uL (4.50-10.00)
[2022-03-11 09:29] LABS: Albumin 3.9 g/dL (3.8-4.9); Albumin/Globulin Ratio 1.88 (1.60-3.17); Anion Gap 13.3 mmol/L (10.00-18.00); BUN/Creat Ratio 19.24 Ratio (12.00-20.00); Blood Urea Nitrogen 14.7 mg/dL (9.0-27.0); Carbon Dioxide 25.3 mmol/L (20.0-27.5); Globulin 2.1 g/dL (1.6-3.3); Non-African American GFR(CKD) 71.6 (60.0-200.0); Potassium 3.5 mmol/L (3.5-5.5); Total Bilirubin 0.2 mg/dL (0.30-1.20)
[2022-03-11] MEDS: CALCIUM CARBONATE 500 MG CHEWABLE PO SCH (09:32)
[2022-03-11] MEDS: ASCORBIC ACID 500 MG TAB PO SCH (09:32)
[2022-03-11] MEDS: MAGNESIUM OXIDE 400 MG TAB PO SCH (09:32)
--- NOTE | 2022-03-11 09:48 | XR ---
EXAMINATION TYPE: XR chest 1V portable DATE OF EXAM: 03/11/2022 CLINICAL HISTORY: Left-sided thoracentesis . TECHNIQUE: Single AP portable upright view of the chest is obtained. COMPARISON: Chest x-ray from one day earlier and older studies. FINDINGS: Small left-sided pleural effusion after thoracentesis. No pneumothorax seen. Associated co mpressive atelectasis is present. Patchy right basilar opacity again seen. Cardiomegaly noted. Osseou s structures are intact. IMPRESSION: Improved left-sided pleural effusion after thoracentesis. No pneumothorax is evident.
--- NOTE | 2022-03-11 09:52 | P.HPIM ---
History of Present Illness H&P Date: 03/11/22 Chief Complaint: shortness of breath this 86-year-old female patient of Dr. Clark who presented with concerns of ongoing shortness of breath. Patient reports that original shortness of breath started about 6 months ago but has progressively increased over the past 4 days . states she presented to her PCP who directed her to the ER for further evaluation. Patient has has medical history of breast cancer, hyperlipidemia, hypertension, osteoarthritis, pneumonia and ex-smoker.chest x-ray performed in ER showing large left-sided pleural effusionErie CT of the chest performed showing no evidence of pulmonary embolism. Large left pleural effusion with near complete atelectasis of left lung. Left upper lobe nodule which is indeterminate short-term follow-up in 3 months is recommended. Troponin was negative BNP 196. Pulmonary services have been consulted. Patient underwent thoracentisis 1.8 L removed. Patient reports significant improvement with shortness of breath. At this time patient denies chest pain. Patient reports coughing. Patient denies nausea vomiting or diarrhea. Patient denies any urinary burning or frequency Review of Systems please refer to HPI otherwise unremarkable Past Medical History Past Medical History: Cancer, Hyperlipidemia, Hypertension, Osteoarthritis (OA), Pneumonia Additional Past Medical History / Comment(s): HX PNEUMONIA X6, CANCER RT BREAST History of Any Multi-Drug Resistant Organisms: None Reported Past Surgical History: Appendectomy, Breast Surgery, Cholecystectomy, Hyste rectomy Additional Past Surgical History / Comment(s): RT BREAST BX.. Right breast lumpectomy Past Anesthesia/Blood Transfusion Reactions: No Reported Reaction, Motion Sickness Past Psychological History: Depression Additional Psychological History / Comment(s): PAST HX OF DEPRESSION, not current Smoking Status: Former smoker Past Alcohol Use History: None Reported Additional Past Alcohol Use History / Comment(s): quit smoking age 62 Past Drug Use History: None Reported - Past Family History Sister(s) Family Medical History: Cancer Additional Family Medical History / Comment(s): OVARIAN CA Brother(s) Family Medical History: Cancer Additional Family Medical History / Comment(s): BROTHER #1 KIDNEY CA. BROTHER #2 PROSTATE CA Daughter(s) Family Medical History: Cancer Additional Family Medical History / Comment(s): OVARIAN CANCER, breast cancer Mother Family Medical History: Myocardial Infarction (NE) Medications and Allergies Home Medications Medication Instructions Recorded Confirmed Type Aspirin EC [Ecotrin] 81 mg PO DAILY 08/17/15 03/10/22 History Lisinopril-Hctz 20-25 mg 1 tab PO DAILY 08/17/15 03/10/22 History [Zestoretic 20-25] Multivitamins, Thera [Theragran] 1 tab PO DAILY 08/17/15 03/10/22 History Simvastatin [Zocor] 10 mg PO HS 08/17/15 03/10/22 History amLODIPine [Norvasc] 5 mg PO HS 08/17/15 03/10/22 History Ascorbic Acid [Vitamin C] 500 mg PO BID 03/10/22 03/10/22 History Calcium Carbonate [Calcium] 600 mg PO BID 03/10/22 03/10/22 History Cholecalciferol [Vitamin D3 (125 125 mcg PO DAILY 03/10/22 03/10/22 History Mcg = 5000 Iu)] Magnesium 250 mg PO BID 03/10/22 03/10/22 History Allergies Allergy/AdvReac Type Severity Reaction Status Date / Time STEROID DOSE PACK Allergy Mild Rash/Hives Uncoded 03/10/22 16:07 Physical Exam Vitals: Vital Signs Temp Pulse Pulse Resp BP BP Pulse Ox 03/11/22 07:58 18 03/11/22 07:25 97.5 F L 69 18 121/71 94 L 03/11/22 01:10 98.0 F 72 17 118/66 97 03/10/22 21:09 98.1 F 68 21 150/74 95 03/10/22 20:01 98.1 F 72 18 123/74 98 03/10/22 17:00 75 18 129/79 96 03/10/22 16:00 86 20 138/101 97 03/10/22 15:01 90 18 98 03/10/22 15:00 90 20 143/89 97 03/10/22 14:56 22 03/10/22 14:55 94 L 03/10/22 14:43 95.9 F L 94 28 H 163/89 90 L Intake and Output 03/10/22 03/11/22 03/11/22 22:59 06:59 14:59 Other: Voiding Method Bedside Commode Bedside Commode Bedpan Bedpan # Voids 1 Weight 64.41 kg Head normocephalic Neck supple Lungs clear to auscultation bilaterally no wheezing or crackles Heart regular rate and rhythm S1-S2, no rub or gallop Abdomen is soft nontender nondistended positive bowel sounds no hepatosplenomegaly Extremities no edema Neuro alert and orientated to 3 Results CBC & Chem 7: 03/11/22 05:12 03/11/22 05:07 Labs: Abnormal Lab Results - Last 24 Hours (Table) 03/10/22 03/10/22 03/10/22 Range/Units 15:08 15:08 15:08 Hgb 16.4 H (11.4-16.0) gm/dL Hct 47.3 H (34.0-46.0) % MCH (27.0-32.0) pg Monocytes # (0.20-1.00) X 10*3/uL D-Dimer 2.45 H (<0.60) mg/L FEU Sodium 136 L (137-145) mmol/L Chloride 96 L (98-107) mmol/L Glucose 157 H (74-99) mg/dL Total Bilirubin (0.30-1.20) mg/dL Total Protein (6.2-8.2) g/dL 03/11/22 03/11/22 Range/Units 05:07 05:12 Hgb (11.4-16.0) gm/dL Hct (34.0-46.0) % MCH 32.3 H (27.0-32.0) pg Monocytes # 1.03 H (0.20-1.00) X 10*3/uL D-Dimer (<0.60) mg/L FEU Sodium (137-145) mmol/L Chloride (98-107) mmol/L Glucose 127 H (74-99) mg/dL Total Bilirubin 0.20 L (0.30-1.20) mg/dL Total Protein 6.0 L (6.2-8.2) g/dL Thrombosis Risk Factor Assmnt - Choose All That Apply Any of the Below Risk Factors Present?: Yes Each Factor Represents 1 point: Medical pt on bed rest, Obesity (BMI >25), Serious lung disease incl. pneumonia (< 1month) Each Risk Factor Represents 3 Points: Age 75 years or older Thrombosis Risk Factor Assessment Total Risk Factor Score: 6 Thrombosis Risk Factor Assessment Level: High Risk Assessment and Plan Assessment: 1. Shortness of breath secondary to large left pleural effusion status post the thoracetisis with 1.8 L removed on 03/11/2022. 2. History of hyperlipidemia maintained on statin 3. History of essential hypertension 4. History of breast cancer 5. History of pneumonia 6. History of nicotine dependence DVT prophylaxis Lovenox. GI prophylaxis Protonix pulmonary services following Time with Patient: Greater than 30 (Greater than 60% of the total time spent in counseling and coordination of care)
--- NOTE | 2022-03-11 10:55 | P.DS ---
Providers Date of admission: 03/10/22 19:18 Expected date of discharge: 03/11/22 Attending physician: Dung Javed Consults: 03/10/22 19:18 Consult Physician Urgent Consulting Provider: Israel Breen Consult Reason/Comments: Pleural effusion Do you want consulting provider notified?: Yes Primary care physician: Violeta Clark Hospital Course: discharge diagnosis 1. Shortness of breath secondary to large left pleural effusion status post the thoracetisis with 1.8 L removed on 03/11/2022. 2. History of hyperlipidemia maintained on statin 3. History of essential hypertension 4. History of breast cancer 5. History of pneumonia 6. History of nicotine dependence hospital course this 86-year-old female patient of Dr. Clark who presented with concerns of ongoing shortness of breath. Patient reports that original shortness of breath started about 6 months ago but has progressively increased over the past 4 days . states she presented to her PCP who directed her to the ER for further evaluation. Patient has has medical history of breast cancer, hyperlipidemia, hypertension, osteoarthritis, pneumonia and ex-smoker.chest x-ray performed in ER showing large left-sided pleural effusionErie CT of the chest performed showing no evidence of pulmonary embolism. Large left pleural effusion with near complete atelectasis of left lung. Left upper lobe nodule which is indeterminate short-term follow-up in 3 months is recommended. Troponin was negative BNP 196. Pulmonary services have been consulted. Patient underwent thoracentisis 1.8 L removed. Patient reports significant improvement with shortness of breath. At this time patient denies chest pain. Patient reports coughing. Patient denies nausea vomiting or diarrhea. Patient denies any urinary burning or frequency on 03/11/2022 patient is alert and oriented 3. Patient expresses she is very eager to go home discussed case with pulmonary team and nurse practitioner. Patient has been cleared for discharge. Patient is Desatting and will require home O2. patient to follow up with pulmonary and PCP for further management Patient Condition at Discharge: Stable Plan - Discharge Summary Discharge Rx Participant: Yes New Discharge Prescriptions: Continue amLODIPine [Norvasc] 5 mg PO HS Simvastatin [Zocor] 10 mg PO HS Multivitamins, Thera [Multivitamin (formulary)] 1 tab PO DAILY Aspirin EC [Ecotrin Low Dose] 81 mg PO DAILY Lisinopril-Hctz 20-25 mg [Zestoretic 20-25] 1 tab PO DAILY Calcium Carbonate [Calcium] 600 mg PO BID Magnesium 250 mg PO BID Ascorbic Acid [Vitamin C] 500 mg PO BID Cholecalciferol [Vitamin D3 (125 Mcg = 5000 Iu)] 125 mcg PO DAILY Discharge Medication List Aspirin EC [Ecotrin Low Dose] 81 mg PO DAILY 08/17/15 [History] Lisinopril-Hctz 20-25 mg [Zestoretic 20-25] 1 tab PO DAILY 08/17/15 [History] Multivitamins, Thera [Multivitamin (formulary)] 1 tab PO DAILY 08/17/15 [History] Simvastatin [Zocor] 10 mg PO HS 08/17/15 [History] amLODIPine [Norvasc] 5 mg PO HS 08/17/15 [History] Ascorbic Acid [Vitamin C] 500 mg PO BID 03/10/22 [History] Calcium Carbonate [Calcium] 600 mg PO BID 03/10/22 [History] Cholecalciferol [Vitamin D3 (125 Mcg = 5000 Iu)] 125 mcg PO DAILY 03/10/22 [History] Magnesium 250 mg PO BID 03/10/22 [History] Follow up Appointment(s)/Referral(s): Jovani Pritchard MD [STAFF PHYSICIAN] - 1 Week Violeta Clark MD [Primary Care Provider] - 1-2 days Activity/Diet/Wound Care/Special Instructions: activity as tolerated diet heart healthy
--- NOTE | 2022-03-11 11:35 | P.CNPUL ---
History of Present Illness Consult date: 03/11/22 Requesting physician: Dung Javed Reason for consult: dyspnea, pleural effusion, abnormal CXR/CT Chief complaint: Shortness of breath History of present illness: This is a very pleasant 86-year-old female patient with a known history of hypertension, hyperlipidemia, right-sided breast cancer on 2 separate occasions previously treated with oral chemotherapy for 5 years about 6 years ago. Recu rrent cancer in January 2021 followed by lumpectomy. Over the past 6 months she had been noticing a very gradual increase in shortness of breath with decreasing activity. The last 2 months continued to get worse. She presented here to the emergency room for the same. She was barely able to walk even a few steps the past 4 days. She was referred to the ER by her PCP. Chest x-ray did reveal a large left-sided pleural effusion. CT angiogram revealed no evidence of pulmonary embolism. There is a large left pleural effusion with near complete opacification of the left lung. Left upper lobe nodule which is indeterminate with recommendations for 3 month follow-up. Ultrasound of the left chest did reveal a 9.9 cm pocket. We are consulted for the same. She is seen today in consultation on the regular medical floor. She is currently sitting up in bed. Awake and alert. She is in mild respiratory distress. Dyspneic with conversation. White count 9.1. Hemoglobin 14.1. Bili count 300,000. D-dimer 2.45. Sodium 138. Potassium 3.5. Glucose 127. BUN 15. Creatinine 0.8. She is currently maintaining O2 saturations at 97% on 3 L/m per nasal cannula. Review of Systems REVIEW OF SYSTEMS: CONSTITUTIONAL: Denies any recent significant weight loss or weight gain. EYES: Denies change in vision. EARS, NOSE, MOUTH, THROAT: Denies headaches, denies sore throat. CARDIOVASCULAR: Denies chest pain, palpitations or syncopal episodes. RESPIRATORY: Positive for shortness of breath, cough, congestion no hemoptysis. GASTROINTESTINAL: Denies change in appetite, denies abdominal pain GENITOURINARY: Denies hematuria, denies infections. MUSKULOSKELETAL: Denies pain, denies swelling. INTEGUMENTARY: Denies rash, denies eczema. NEUROLOGICAL: Denies recent memory loss, no recent seizure activity. PSYCHIATRIC: Denies anxiety, denies depression. HEMATOLOGIC/LYMPHATIC: Denies anemia, denies enlarged lymph nodes. Past Medical History Past Medical History: Cancer, Hyperlipidemia, Hypertension, Osteoarthritis (OA), Pneumonia Additional Past Medical History / Comment(s): HX PNEUMONIA X6, CANCER RT BREAST History of Any Multi-Drug Resistant Organisms: None Reported Past Surgical History: Appendectomy, Breast Surgery, Cholecystectomy, Hysterectomy Additional Past Surgical History / Comment(s): RT BREAST BX.. Right breast lumpectomy Past Anesthesia/Blood Transfusion Reactions: No Reported Reaction, Motion Sickness Past Psychological History: Depression Additional Psychological History / Comment(s): PAST HX OF DEPRESSION, not current Smoking Status: Former smoker Past Alcohol Use History: None Reported Additional Past Alcohol Use History / Comment(s): quit smoking age 62 Past Drug Use History: None Reported - Past Family History Sister(s) Family Medical History: Cancer Additional Family Medical History / Comment(s): OVARIAN CA Brother(s) Family Medical History: Cancer Additional Family Medical History / Comment(s): BROTHER #1 KIDNEY CA. BROTHER #2 PROSTATE CA Daughter(s) Family Medical History: Cancer Additional Family Medical History / Comment(s): OVARIAN CANCER, breast cancer Mother Family Medical History: Myocardial Infarction (NH) Medications and Allergies Home Medications Medication Instructions Recorded Confirmed Type Aspirin EC [Ecotrin Low Dose] 81 mg PO DAILY 08/17/15 03/10/22 History Lisinopril-Hctz 20-25 mg 1 tab PO DAILY 08/17/15 03/10/22 History [Zestoretic 20-25] Multivitamins, Thera [Multivitamin 1 tab PO DAILY 08/17/15 03/10/22 History (formulary)] Simvastatin [Zocor] 10 mg PO HS 08/17/15 03/10/22 History amLODIPine [Norvasc] 5 mg PO HS 08/17/15 03/10/22 History Ascorbic Acid [Vitamin C] 500 mg PO BID 03/10/22 03/10/22 History Calcium Carbonate [Calcium] 600 mg PO BID 03/10/22 03/10/22 History Cholecalciferol [Vitamin D3 (125 125 mcg PO DAILY 03/10/22 03/10/22 History Mcg = 5000 Iu)] Magnesium 250 mg PO BID 03/10/22 03/10/22 History Allergies Allergy/AdvReac Type Severity Reaction Status Date / Time STEROID DOSE PACK Allergy Mild Rash/Hives Uncoded 03/10/22 16:07 Physical Exam Vitals: Vital Signs Temp Pulse Pulse Resp BP BP Pulse Ox 03/11/22 10:28 97 03/11/22 10:16 89 L 03/11/22 09:52 96 03/11/22 07:58 18 03/11/22 07:25 97.5 F L 69 18 121/71 94 L 03/11/22 01:10 98.0 F 72 17 118/66 97 03/10/22 21:09 98.1 F 68 21 150/74 95 03/10/22 20:01 98.1 F 72 18 123/74 98 03/10/22 17:00 75 18 129/79 96 03/10/22 16:00 86 20 138/101 97 03/10/22 15:01 90 18 98 03/10/22 15:00 90 20 143/89 97 03/10/22 14:56 22 03/10/22 14:55 94 L 03/10/22 14:43 95.9 F L 94 28 H 163/89 90 L Intake and Output 03/10/22 03/11/22 03/11/22 22:59 06:59 14:59 Other: Voiding Method Bedside Commode Bedside Commode Bedpan Bedpan # Voids 1 Weight 64.41 kg GENERAL EXAM: Alert, very pleasant 86-year-old female patient, on 3 L nasal cannula, fairly comfortable in no apparent distress. HEAD: Normocephalic. EYES: Normal reaction of pupils, equal size. NOSE: Clear with pink turbinates. THROAT: No erythema or exudates. NECK: No masses, no JVD. CHEST: No chest wall deformity. LUNGS: Equal air entry with crackles, diminished in the left base. CVS: S1 and S2 normal with no audible murmur, regular rhythm. ABDOMEN: No hepatosplenomegaly, normal bowel sounds, no guarding or rigidity. SPINE: No scoliosis or deformity SKIN: No rashes CENTRAL NERVOUS SYSTEM: No focal deficits, tone is normal in all 4 extremities. EXTREMITIES: There is no peripheral edema. No clubbing, no cyanosis. Peripheral pulses are intact. Results - Laboratory Findings CBC and BMP: 03/11/22 05:12 03/11/22 05:07 PT/INR, D-dimer PT 10.7 sec (9.0-12.0) 03/10/22 15:08 INR 1.0 (<1.2) 03/10/22 15:08 D-Dimer 2.45 mg/L FEU (<0.60) H 03/10/22 15:08 Abnormal lab findings: Abnormal Labs 03/10/22 03/10/22 03/10/22 15:08 15:08 15:08 Hgb 16.4 H Hct 47.3 H MCH Monocytes # D-Dimer 2.45 H Sodium 136 L Chloride 96 L Glucose 157 H Total Bilirubin Total Protein 03/11/22 03/11/22 05:07 05:12 Hgb Hct MCH 32.3 H Monocytes # 1.03 H D-Dimer Sodium Chloride Glucose 127 H Total Bilirubin 0.20 L Total Protein 6.0 L - Diagnostic Findings Chest x-ray: image reviewed CT scan - chest: image reviewed Assessment and Plan Assessment: 1 Acute hypoxemic respiratory failure secondary to a large left pleural effusion. Status post thoracentesis today with 1.8 L of cloudy yellow fluid removed. Pathology and fluid analysis is pending. Follow-up chest x-ray did not reveal any evidence of pneumothorax. 2 left upper lobe nodule which is indeterminant and three-month follow-up recommended. A right middle lobe groundglass nodule with follow-up recommended as well. 3 History of right-sided breast cancer approximately 6 years ago treated with oral chemotherapy for 5 years area and recurrent right-sided breast cancer January 2021 status post lumpectomy 4 hyperlipidemia 5 Hypertension 6 Osteoarthritis 7 History of depression Plan: The patient was seen and evaluated CAT scan, chest x-ray and labs reviewed Left-sided thoracentesis performed today 1.8 L cloudy yellow fluid removed Pathology and fluid analysis pending Follow-up chest x-ray revealed no pneumothorax Cleared for discharge from the pulmonary standpoint Follow-up in the office in 1-2 weeks' I have personally seen and examined the patient, performed the documentation and the assessment and plan as written. Number of minutes spent on the visit: 20.
--- NOTE | 2022-03-11 12:26 | OP ---
OPERATIVE REPORT OPERATIVE REPORT: Left-sided thoracentesis. PREOPERATIVE DIAGNOSIS: Left pleural effusion. POSTOPERATIVE DIAGNOSIS: Left pleural effusion. ANESTHESIA USED: Two mL of 1% lidocaine. PROCEDURE DESCRIPTION: The patient was placed in a sitting-upright position. The area below the left scapula was prepared in a sterile fashion and drapes were applied. The area of the fluid was earlier localized by ultrasound, and at the level of the marking, the area was locally anesthetized and a 26-gauge needle advanced into the pleural space until the fluid was localized. Then a small tiny incision was made, and a standard thoracentesis needle was used, advanced into the pleural space. As soon as the fluid was obtained, the catheter was advanced over the needle into the pleural space, and the needle was pulled out of the pleural space. Freely flowing fluid, roughly 1800 mL of crys-colored fluid was removed from the left pleural space. Procedure was well tolerated. No complications. Fluid was sent for different diagnostic studies, including cytology. The fluid is strongly suspicious for being malignant, since the patient had previous history of breast cancer. MMODL / IJN: [id number] /
[2022-03-11 13:38] VITALS: BP 144/75; PULSE 72; TEMP 98.2
[2022-03-11 20:58] LABS: Appearance,BF Hazy
[2022-03-11 21:30] LABS: Total Protein 6.1 g/dL (6.2-8.2)
[2022-03-12 00:51] LABS: Glucose, BF Source Pleural Fluid; Glucose, Body Fluid 138 mg/dL; LDH, Body Fluid Source Pleural Fluid; T. Protein, Body Fluid Source Pleural Fluid; Total Protein, Body Fluid 4410 mg/dL
[2022-03-12] MEDS ORDERED: PANTOPRAZOLE 40 MG TABLET PO SCH (07:30)
[2022-03-12] MEDS ORDERED: ENOXAPARIN 40 MG/0.4 ML SYRINGE SQ SCH (09:00)
--- NOTE | 2022-03-25 17:44 | CDI ---
Documentation Clarification Form Date: 03/25/2022 05:10:52 PM From: Alfredo Bailon Phone: Admit Date: 03/10/2022 07:18:00 PM Patient Name: Holli Castro Visit Number: [id number] Discharge Date: 03/11/2022 02:56:00 PM ATTENTION: The Clinical Documentation Specialists (CDI) and [facility] Coding Staff appreciate your assistance in clarifying documentation. Please respond to the clarification below the line at the bottom and electronically sign. The CDI & [facility] Coding staff will review the response and follow-up if needed. Please note: Queries are made part of the Legal Health Record. If you have any questions, please contact the author of this message via ITS. Dr. 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 Coding guidelines do not allow coding professionals to code based on pathology results; therefore, clarification is requested. History/risk factors: Clinical Indicators:Left Large pleural effusion. Treatment:Thoracentesis removed 1.8 liters removed Please clarify if you agree with the pathology report and provide final diagnosis of : [ ] Yes, what is the final diagnosis [ ] No [ ] Other (please specify) [ ] Unable to determine MTDD
--- NOTE | 2022-03-28 16:57 | CDI ---
Documentation Clarification Form Date: 03/28/2022 03:38:55 PM From: Mira Al RN CCDS Admit Date: 03/10/2022 07:18:00 PM Patient Name: Holli Castro Visit Number: [id number] Discharge Date: 03/11/2022 02:56:00 PM ATTENTION: The Clinical Documentation Specialists (CDI) and [facility] Coding Staff appreciate your assistance in clarifying documentation. Please respond to the clarification below the line at the bottom and electronically sign. The CDI & [facility] Coding staff will review the response and follow-up if needed. Please note: Queries are made part of the Legal Health Record. If you have any questions, please contact the author of this message via ITS. Dr. Dung Javed There is documentation of I strongly suspect that the fluid is malignant and it is likely malignant effusion from metastatic breast cancer unless for otherwise 03/11, Pulmonary consult. Additional clarification is requested. History/Risk Factors: 86-year-old female presents to the ED with shortness of breath that started six months ago and has progressively increased over the last four days. Medical History: Right breast cancer, history of smoking and HTN . 03/11, H&P. 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 Napsin A staining is positive, which also supports the diagnosis of adenocarcinoma. Staining is negative for SHELIA -3 and mammaglobin. [employer]st material is reviewed by Dr. Rowena Bolton, who agrees with the assessment of malignancy. Treatment: 03/11 Left pleural effusion Thoracentesis 1800cc drained. Can you please clarify if the malignant pleural effusion is due to? [ ] Primary Breast adenocarcinoma [x ] Secondary lung adenocarcinoma [ ] Other, please specify [ ] Unable to determine (Template Last Revised: January 2021) MTDD
== END 2022-03-11 14:56 | disposition home or self-care (01) | DRG 180 ==
LOC: EC 14:41 → OBSVTOIN 19:18 → 4SSUR 19:18
PROVIDERS: ADMIT Internal Medicine; ATTEND Internal Medicine
PROC: 0W9B30Z Drainage of Left Pleural Cavity with Drainage Device, Percutaneous Approach (ICD-10-PCS; principal; 2022-03-11)
DX: C78.02 Secondary malignant neoplasm of left lung (principal); J96.01 Acute respiratory failure with hypoxia; J90 Pleural effusion, not elsewhere classified; J98.11 Atelectasis; E78.5 Hyperlipidemia, unspecified; F32.A Depression, unspecified; I10 Essential (primary) hypertension; M19.90 Unspecified osteoarthritis, unspecified site; Z79.82 Long term (current) use of aspirin; Z80.3 Family history of malignant neoplasm of breast; Z80.41 Family history of malignant neoplasm of ovary; Z80.51 Family history of malignant neoplasm of kidney; Z82.49 Family history of ischemic heart disease and other diseases of the circulatory system; Z85.3 Personal history of malignant neoplasm of breast; Z87.01 Personal history of pneumonia (recurrent); Z87.891 Personal history of nicotine dependence; Z90.710 Acquired absence of both cervix and uterus; Z90.49 Acquired absence of other specified parts of digestive tract
CPT/HCPCS: 36415; 71045; 71046; 71275; 76604; 80053; 82945; 83605; 83615; 83735; 83880; 84155; 84157; 84484; 85025; 85379; 85610; 85730; 87070; 87102; 87116; 87205; 87206; 87252; 87496; 87498; 87502; 87529; 87634; 87798; 88108; 88305; 88341; 88342; 89050; 93005; 99285

== ENCOUNTER → 2022-03-17 | Outpatient (CLI) | payer MEDICARE ==
--- NOTE | 2022-03-17 13:22 | XR ---
EXAMINATION TYPE: XR chest 2V DATE OF EXAM: 03/17/2022 COMPARISON: Chest x-ray 03/11/2022 HISTORY: R06.00 J90 TECHNIQUE: Frontal and lateral views of the chest are obtained. FINDINGS: There is abnormal increased attenuation at the left lung base as on prior, the left hemidi aphragm and heart border are secured. Aorta is dense. No evident pneumothorax. Surgical clips are pre sent at the level of the right breast. Heart is obscured. Aorta is dense. IMPRESSION: Findings similar, left pleural effusion and associated atelectasis versus pneumonia, fol low-up to exclude underlying mass
== END | disposition home or self-care (01) ==
LOC: RADXRMAIN 12:27
PROVIDERS: ATTEND Family Medicine
DX: J90 Pleural effusion, not elsewhere classified (principal)
CPT/HCPCS: 71046

== ENCOUNTER 2022-04-06 08:55 | Day surgery (SDC) | payer MEDICARE ==
[2022-04-05 10:56] VITALS: BMI 27.7
[~2022-04-06 08:55] MED LIST changes: -DEXAMETHASONE SOD PHOSPHATE 4 MG/ML 1 ML VIAL IV ONE; -LIDOCAINE 1% (10MG/ML) FOR IV START INTRADERMA PRN; -MIDAZOLAM 2 MG/2 ML VIAL IV PRN; -ONDANSETRON 4 MG/2 ML VIAL IVP ONE; -Pre Op ABX Message 1 EACH MISC MISCELLANE ONE
[2022-04-06 09:32] VITALS: TEMP 97
[2022-04-06 09:40] LABS: Glucose,Whole Blood 124 mg/dL (75-99)
[2022-04-06] MEDS ORDERED: fentaNYL (PF) 50 MCG/ML 2 ML AMP ONE (10:15)
[2022-04-06] MEDS ORDERED: PROPOFOL 10 MG/ML 20 ML VIAL IV ONE (10:15)
[2022-04-06] MEDS ORDERED: MIDAZOLAM 2 MG/2 ML VIAL ONE (10:15)
[2022-04-06] MEDS ORDERED: LIDOCAINE 1% INJ 10MG/ML (20 ML MDV) SQ ONE ×2 (10:29)
--- NOTE | 2022-04-06 11:19 | P.OP ---
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 She understood the risks and benefits of pleurX placement and wished to proceed. Operative Findings: 850cc straw colored fluid removed from right chest Description of Procedure: The patient was brought to the operating room and placed in the supine position. She was sedated and the left chest was prepped and draped in the usual sterile fashion. Antibiotics were given and a time-out was performed. The skin was anesthetized in two areas using 1% lidocaine. The pleura cavity was entered with a blunt needle and a guidewire was inserted. This was confirmed using fluoroscopy. The introducer sheath was inserted over the wire under x-ray guidance. The catheter was threaded into the chest via the sheath. 850cc of straw colored fluid was removed from the chest. The skin was closed using 4-0 vicryl and glue. The catheter was sutured to the skin using silk suture and a sterile dressing was applied. She tolerated the procedure well and was transferred to recovery in stable condition. All counts were correct.
[2022-04-06 11:20] VITALS: RESP 16
--- NOTE | 2022-04-06 11:21 | FL ---
Fluoroscopy History: pleurx catheter placement pleurx catheter placement 2 levels, 23sec fl time
[2022-04-06] MEDS ORDERED: ACETAMINOPHEN TAB 500 MG TAB ONE (11:41)
[2022-04-06] MEDS ORDERED: ACETAMINOPHEN TAB 500 MG TAB PO ONE (11:43)
--- NOTE | 2022-04-06 11:52 | XR ---
EXAMINATION TYPE: XR chest 1V portable DATE OF EXAM: 04/06/2022 HISTORY: Pleural Catheter placement COMPARISON: 03/29/2022 TECHNIQUE: Single view of the chest is submitted. FINDINGS: Left-sided chest tube is in place. Left-sided pneumothorax noted estimated at approximately 10%. Persistent left basilar pleural-parenchymal opacity. The heart is stable. Hilar and mediastinal structures are within normal limits. Degenerative changes are seen of the dorsal spine. IMPRESSION: 1. Left-sided chest tube is in place. Left-sided pneumothorax noted estimated at approximately 10%.
[2022-04-06 12:44] VITALS: BP 115/68; PULSE 86
== END 2022-04-06 12:50 | disposition home health service (06) ==
LOC: OR 08:55
PROVIDERS: ATTEND Thoracic Surgery (Cardiothoracic Vascular Surgery)
DX: C34.90 Malignant neoplasm of unspecified part of unspecified bronchus or lung (principal); C79.9 Secondary malignant neoplasm of unspecified site; J91.0 Malignant pleural effusion; I10 Essential (primary) hypertension; E78.5 Hyperlipidemia, unspecified; Z87.01 Personal history of pneumonia (recurrent); J44.9 Chronic obstructive pulmonary disease, unspecified; E11.9 Type 2 diabetes mellitus without complications; Z97.2 Presence of dental prosthetic device (complete) (partial); Z79.899 Other long term (current) drug therapy; Z90.49 Acquired absence of other specified parts of digestive tract; Z98.890 Other specified postprocedural states; Z88.8 Allergy status to other drugs, medicaments and biological substances
CPT/HCPCS: 32550; 75989; 71045; J2250; J0690; J2001; J3010; J2704

== ENCOUNTER → 2022-04-08 | Outpatient (CLI) | payer MEDICARE | LOC: RADPETMAIN 14:39 | PROVIDERS: ATTEND Internal Medicine Hematology & Oncology | DX: Z53.9 Procedure and treatment not carried out, unspecified reason (principal) ==

== ENCOUNTER 2022-08-01 11:57 | Inpatient (IN) | payer MEDICARE ==
[2022-08-01] MEDS ORDERED: SODIUM CHLORIDE 0.9% 1,000 ML IV ONE ×2 (12:28→19:43)
[2022-08-01] MEDS ORDERED: ONDANSETRON 4 MG/2 ML VIAL IVP STA (12:28)
[2022-08-01] MEDS ORDERED: SODIUM CHLORIDE 0.9% 500 ML 500 ML IV ONE ×2 (12:28→14:18)
--- NOTE | 2022-08-01 12:33 | ED ---
General Adult HPI - General Chief complaint: Nausea/Vomiting/Diarrhea Stated complaint: vomiting, SOB, weakness Time Seen by Provider: 08/01/22 12:15 Source: patient, family, RN notes reviewed, old records reviewed Mode of arrival: wheelchair Limitations: no limitations - History of Present Illness Initial comments: This is an 87-year-old female presents emergency Department with a past medical history significant for lung cancer and she has a pleural drain in place. Patient states she started treatment for the cancer in April. Patient comes in today because she states she's been having nausea and vomiting for 5 days. Patient denies any diarrhea. Patient denies any fever chills per patient denies any chest pain. Patient states she is more short of breath than normal especially when she tries to talk. Patient states she also has some diffuse abdominal pain but she believes that to be secondary to all the vomiting she is doing and she states that the pain is intermittent and currently not there. Patient denies any dysuria hematuria urinary frequency. - Related Data Home Medications Medication Instructions Recorded Confirmed Aspirin EC [Ecotrin Low Dose] 81 mg PO DAILY 08/17/15 08/01/22 Lisinopril-Hctz 20-25 mg 1 tab PO DAILY 08/17/15 08/01/22 [Zestoretic 20-25] Multivitamins, Thera [Multivitamin 1 tab PO DAILY 08/17/15 08/01/22 (formulary)] amLODIPine [Norvasc] 5 mg PO HS 08/17/15 08/01/22 Ascorbic Acid [Vitamin C] 500 mg PO DAILY 03/10/22 08/01/22 Simvastatin [Zocor] 2.5 mg PO HS 04/05/22 08/01/22 Vitamin C/Biotin [Hair, Skin and 1 tab PO DAILY 08/01/22 08/01/22 Nails Chew] Allergies Allergy/AdvReac Type Severity Reaction Status Date / Time methylprednisolone Allergy Unknown Rash/Hives Verified 08/01/22 14:01 [From Medrol] Review of Systems ROS Statement: Those systems with pertinent positive or pertinent negative responses have been documented in the HPI. ROS Other: All systems not noted in ROS Statement are negative. 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 History of Any Multi-Drug Resistant Organisms: None Reported Past Surgical History: Appendectomy, Breast Surgery, Cholecystectomy, Hysterectomy (Partial hysterectomy), Tonsillectomy Additional Past Surgical History / Comment(s): RT BREAST BX.. Right breast lumpectomy X2, thoracentesis 03/11/22 & 03/28/22 Past Anesthesia/Blood Transfusion Reactions: No Reported Reaction Past Psychological History: No Psychological Hx Reported Smoking Status: Former smoker Past Alcohol Use History: None Reported Past Drug Use History: None Reported - Past Family History Father Family Medical History: Coronary Artery Disease (CAD), Myocardial Infarction (NH) Additional Family Medical History / Comment(s): EtOH abuse Sister(s) Family Medical History: Cancer Additional Family Medical History / Comment(s): OVARIAN CA Brother(s) Family Medical History: Cancer Additional Family Medical History / Comment(s): BROTHER #1 KIDNEY CA. BROTHER #2 PROSTATE CA Daughter(s) Family Medical History: Cancer Additional Family Medical History / Comment(s): OVARIAN CANCER, breast cancer Mother Family Medical History: Coronary Artery Disease (CAD), Diabetes Mellitus, Myocar dial Infarction (NH) General Exam - General Exam Comments Initial Comments: GENERAL: Patient is well-developed and well-nourished. Patient is nontoxic and well- hydrated and is in mild distress. ENT: Neck is soft and supple. No significant lymphadenopathy is noted. Oropharynx is clear. Moist mucous membranes. Neck has full range of motion without eliciting any pain. EYES: The sclera were anicteric and conjunctiva were pink and moist. Extraocular movements were intact and pupils were equal round and reactive to light. Eyelids were unremarkable. PULMONARY: Unlabored respirations. Good breath sounds bilaterally. No audible rales rhonchi or wheezing was noted. CARDIOVASCULAR: There is a regular rate and rhythm without any murmurs gallops or rubs. ABDOMEN: Abdomen is diffusely tender. SKIN: Skin is clear with no lesions or rashes and otherwise unremarkable. NEUROLOGIC: Patient is alert and oriented x3. Cranial nerves II through XII are grossly intact. Motor and sensory are also intact. Normal speech, volume and content. Symmetrical smile. MUSCULOSKELETAL: Normal extremities with adequate strength and full range of motion. LYMPHATICS: No significant lymphadenopathy is noted PSYCHIATRIC: Normal psychiatric evaluation. Limitations: no limitations Course Vital Signs 08/01/22 08/01/22 08/01/22 12:12 14:30 15:27 Temperature 97.2 F L Pulse Rate 73 92 89 Respiratory 16 18 18 Rate Blood Pressure 72/54 92/78 101/74 O2 Sat by Pulse 90 L 96 97 Oximetry Medical Decision Making - Medical Decision Making EKG shows sinus rhythm at a rate of 91 bpm VT interval 269 QRS is 94 QT interval 370 QTC is 360. Patient's EKG shows diffuse T-wave inversions in leads V2 through the 5. Also in leads 1 and aVL. Chest x-ray shows shows bilateral infiltrates consistent with atelectasis versus infiltrate. Because the patient had an elevated white count 17,000 and an elevated lactic acid I did start the patient on antibiotics for pneumonia. Patient's CAT scan showed a mild amount of ascites pericardial effusion infiltrates in the bases again and nodularity of the liver. I spoke with Dr. Javed he agreed to admit the patient admitted the patient wro te admitting orders. I consulted nephrology and I ordered an echo. - Lab Data Result diagrams: 08/01/22 12:36 08/01/22 12:36 Lab Results 08/01/22 08/01/22 08/01/22 Range/Units 12:36 12:36 12:36 WBC 17.8 H (3.8-10.6) k/uL RBC 4.47 (3.80-5.40) m/uL Hgb 14.3 (11.4-16.0) gm/dL Hct 43.4 (34.0-46.0) % MCV 97.0 (80.0-100.0) fL MCH 32.0 (25.0-35.0) pg MCHC 33.0 (31.0-37.0) g/dL RDW 13.2 (11.5-15.5) % Plt Count 455 H (150-450) k/uL MPV 7.8 Neutrophils % 81 % Lymphocytes % 11 % Monocytes % 6 % Eosinophils % 1 % Basophils % 0 % Neutrophils # 14.4 H (1.3-7.7) k/uL Lymphocytes # 2.0 (1.0-4.8) k/uL Monocytes # 1.1 H (0-1.0) k/uL Eosinophils # 0.1 (0-0.7) k/uL Basophils # 0.0 (0-0.2) k/uL PT 11.6 (9.0-12.0) sec INR 1.1 (<1.2) APTT 21.6 L (22.0-30.0) sec Sodium 130 L (137-145) mmol/L Potassium 5.6 H (3.5-5.1) mmol/L Chloride 87 L (98-107) mmol/L Carbon Dioxide 19 L (22-30) mmol/L Anion Gap 24 mmol/L BUN 53 H (7-17) mg/dL Creatinine 3.84 H (0.52-1.04) mg/dL Est GFR (CKD-EPI)AfAm 12 (>60 ml/min/1.73 sqM) Est GFR (CKD-EPI)NonAf 10 (>60 ml/min/1.73 sqM) Glucose 182 H (74-99) mg/dL Lactic Ac Sepsis Rflx Plasma Lactic Acid Wes[place] (0.7-2.0) mmol/L Calcium 10.0 (8.4-10.2) mg/dL Magnesium 2.3 (1.6-2.3) mg/dL Total Bilirubin 0.8 (0.2-1.3) mg/dL AST 442 H (14-36) U/L ALT 369 H (4-34) U/L Alkaline Phosphatase 56 (38-126) U/L Troponin I (0.000-0.034) ng/mL Total Protein 7.0 (6.3-8.2) g/dL Albumin 4.3 (3.5-5.0) g/dL Lipase 79 (23-300) U/L Urine Color Urine Appearance (Clear) Urine pH (5.0-8.0) Ur Specific [place] (1.001-1.035) Urine Protein (Negative) Urine Glucose (UA) (Negative) Urine Ketones (Negative) Urine Blood (Negative) Urine Nitrite (Negative) Urine Bilirubin (Negative) Urine Urobilinogen (<2.0) mg/dL Ur Leukocyte Esterase (Negative) Urine RBC (0-5) /hpf Urine WBC (0-5) /hpf Ur Squamous Epith Cells (0-4) /hpf Hyaline Casts (0-2) /lpf Urine Mucus (None) /hpf 08/01/22 08/01/22 08/01/22 Range/Units 12:36 12:36 13:23 WBC (3.8-10.6) k/uL RBC (3.80-5.40) m/uL Hgb (11.4-16.0) gm/dL Hct (34.0-46.0) % MCV (80.0-100.0) fL MCH (25.0-35.0) pg MCHC (31.0-37.0) g/dL RDW (11.5-15.5) % Plt Count (150-450) k/uL MPV Neutrophils % % Lymphocytes % % Monocytes % % Eosinophils % % Basophils % % Neutrophils # (1.3-7.7) k/uL Lymphocytes # (1.0-4.8) k/uL Monocytes # (0-1.0) k/uL Eosinophils # (0-0.7) k/uL Basophils # (0-0.2) k/uL PT (9.0-12.0) sec INR (<1.2) APTT (22.0-30.0) sec Sodium (137-145) mmol/L Potassium (3.5-5.1) mmol/L Chloride (98-107) mmol/L Carbon Dioxide (22-30) mmol/L Anion Gap mmol/L BUN (7-17) mg/dL Creatinine (0.52-1.04) mg/dL Est GFR (CKD-EPI)AfAm (>60 ml/min/1.73 sqM) Est GFR (CKD-EPI)NonAf (>60 ml/min/1.73 sqM) Glucose (74-99) mg/dL Lactic Ac Sepsis Rflx Y Plasma Lactic Acid Wes[place] 7.1 H* (0.7-2.0) mmol/L Calcium (8.4-10.2) mg/dL Magnesium (1.6-2.3) mg/dL Total Bilirubin (0.2-1.3) mg/dL AST (14-36) U/L ALT (4-34) U/L Alkaline Phosphatase (38-126) U/L Troponin I <0.012 (0.000-0.034) ng/mL Total Protein (6.3-8.2) g/dL Albumin (3.5-5.0) g/dL Lipase (23-300) U/L Urine Color Urine Appearance (Clear) Urine pH (5.0-8.0) Ur Specific [place] (1.001-1.035) Urine Protein (Negative) Urine Glucose (UA) (Negative) Urine Ketones (Negative) Urine Blood (Negative) Urine Nitrite (Negative) Urine Bilirubin (Negative) Urine Urobilinogen (<2.0) mg/dL Ur Leukocyte Esterase (Negative) Urine RBC (0-5) /hpf Urine WBC (0-5) /hpf Ur Squamous Epith Cells (0-4) /hpf Hyaline Casts (0-2) /lpf Urine Mucus (None) /hpf 08/01/22 Range/Units 14:54 WBC (3.8-10.6) k/uL RBC (3.80-5.40) m/uL Hgb (11.4-16.0) gm/dL Hct (34.0-46.0) % MCV (80.0-100.0) fL MCH (25.0-35.0) pg MCHC (31.0-37.0) g/dL RDW (11.5-15.5) % Plt Count (150-450) k/uL MPV Neutrophils % % Lymphocytes % % Monocytes % % Eosinophils % % Basophils % % Neutrophils # (1.3-7.7) k/uL Lymphocytes # (1.0-4.8) k/uL Monocytes # (0-1.0) k/uL Eosinophils # (0-0.7) k/uL Basophils # (0-0.2) k/uL PT (9.0-12.0) sec INR (<1.2) APTT (22.0-30.0) sec Sodium (137-145) mmol/L Potassium (3.5-5.1) mmol/L Chloride (98-107) mmol/L Carbon Dioxide (22-30) mmol/L Anion Gap mmol/L BUN (7-17) mg/dL Creatinine (0.52-1.04) mg/dL Est GFR (CKD-EPI)AfAm (>60 ml/min/1.73 sqM) Est GFR (CKD-EPI)NonAf (>60 ml/min/1.73 sqM) Glucose (74-99) mg/dL Lactic Ac Sepsis Rflx Plasma Lactic Acid Wes[place] (0.7-2.0) mmol/L Calcium (8.4-10.2) mg/dL Magnesium (1.6-2.3) mg/dL Total Bilirubin (0.2-1.3) mg/dL AST (14-36) U/L ALT (4-34) U/L Alkaline Phosphatase (38-126) U/L Troponin I (0.000-0.034) ng/mL Total Protein (6.3-8.2) g/dL Albumin (3.5-5.0) g/dL Lipase (23-300) U/L Urine Color Dark Yellow Urine Appearance Turbid H (Clear) Urine pH 5.0 (5.0-8.0) Ur Specific [place] 1.021 (1.001-1.035) Urine Protein 2+ H (Negative) Urine Glucose (UA) 1+ H (Negative) Urine Ketones Trace H (Negative) Urine Blood Trace H (Negative) Urine Nitrite Negative (Negative) Urine Bilirubin 1+ H (Negative) Urine Urobilinogen 3.0 (<2.0) mg/dL Ur Leukocyte Esterase Large H (Negative) Urine RBC 7 H (0-5) /hpf Urine WBC 28 H (0-5) /hpf Ur Squamous Epith Cells 7 H (0-4) /hpf Hyaline Casts 20 H (0-2) /lpf Urine Mucus Rare H (None) /hpf Critical Care Time Critical Care Time: Yes Total Critical Care Time: 35 Disposition Clinical Impression: Acute renal failure, Pneumonia, Septic shock, Pericardial effusion, Ascites, Liver nodule Disposition: ADMITTED IP TO THIS HOSP Referrals: Violeta Clark MD [Primary Care Provider] - 1-2 days Time of Disposition: 14:18
[2022-08-01 13:03] LABS: Basophils % (A) 0 %; Eosinophils # (A) 0.1 k/uL (0-0.7); Eosinophils % (A) 1 %; HCT 43.4 % (34.0-46.0); HGB 14.3 gm/dL (11.4-16.0); Lymphocytes % (A) 11 %; Mean Platelet Volume 7.8; Monocytes # (A) 1.1 k/uL (0-1.0); Monocytes % (A) 6 %; Neutrophils # (A) 14.4 k/uL (1.3-7.7); Neutrophils % (A) 81 %; Platelet Count 455 k/uL (150-450); RBC 4.47 m/uL (3.80-5.40); RDW 13.2 % (11.5-15.5); WBC 17.8 k/uL (3.8-10.6)
[2022-08-01 13:16] LABS: Albumin 4.3 g/dL (3.5-5.0); Magnesium 2.3 mg/dL (1.6-2.3); Total Bilirubin 0.8 mg/dL (0.2-1.3)
[2022-08-01 13:21] LABS: INR 1.1 (<1.2); Potassium 5.6 mmol/L (3.5-5.1); Prothrombin Time 11.6 sec (9.0-12.0)
[2022-08-01 13:24] LABS: Partial Thromboplastin Time 21.6 sec (22.0-30.0)
--- NOTE | 2022-08-01 13:24 | XR ---
EXAMINATION TYPE: XR chest 2V DATE OF EXAM: 08/01/2022 1:09 PM COMPARISON: Chest radiographs from 04/06/2022. TECHNIQUE: XR chest 2V Frontal and lateral views of the chest. CLINICAL INDICATION:Female, 87 years old with history of Chest Pain; FINDINGS: Lungs/Pleura: Blunting of the left costophrenic angle. Left lower lobe patchy airspace opacity. Donald ening of the hemidiaphragms. Pulmonary vascularity: Unremarkable. Heart/mediastinum: Cardiomediastinal silhouette is enlarged and stable. Atherosclerotic calcificatio ns are seen in the aorta. Musculoskeletal: No acute osseous pathology. Lines/Tubes: Left-sided chest tube is in place. IMPRESSION: 1. Small left pleural effusion with left lower lobe patchy airspace opacity which may represent atel ectasis or pneumonia. 2. COPD changes. 3. Stable left chest tube.
[2022-08-01] MEDS ORDERED: cefTRIAXone IN SWFI 1,000 MG/10 ML SYRINGE IVP STA (14:12)
--- NOTE | 2022-08-01 14:42 | CT ---
EXAMINATION TYPE: CT abdomen pelvis wo con CT DLP: 553.9 mGycm, Automated exposure control for dose reduction was used. DATE OF EXAM: 08/01/2022 2:15 PM COMPARISON: PET CT 04/15/2022 CLINICAL INDICATION:Female, 87 years old with history of pain; Abdominal pain TECHNIQUE: Standard CT of the abdomen and pelvis without IV or oral contrast. Lack of IV or oral co ntrast limits evaluation of solid and hollow organ viscera. Coronal and sagittal reformats were perfo rmed. FINDINGS: LOWER CHEST: Partial visualization of left chest tube. Trace left and small right pleural effusions. Right lower lobe calcified granuloma. Bibasilar patchy airspace disease. Moderate pericardial effusio n. ABDOMEN LIVER: Scattered calcified granulomas. Subtle nodularity to the margins with widened fissures. GALLBLADDER AND BILE DUCTS: The gallbladder is surgically absent. Prominence of the extra hepatic amadou e ducts which is not unexpected setting of cholecystectomy. PANCREAS: Unremarkable. SPLEEN: Scattered calcified granulomas. ADRENAL GLANDS: Unremarkable. KIDNEYS AND URETERS: No evidence of hydronephrosis or renal calculus. Suggested bilateral cortical re nal cysts. PELVIS BLADDER: Under distended, limiting evaluation. REPRODUCTIVE: Unremarkable. ABDOMEN & PELVIS STOMACH AND BOWEL: Small hiatal hernia, duodenum is unremarkable. Ingested 7 mm lipoma within the thi rd portion of the duodenum. Distal colonic diverticulosis without evidence for acute diverticulitis. Submucosal fat deposition within the descending colon. The appendix is not definitively visualized. N o evidence of bowel obstruction. PERITONEUM: No evidence of pneumoperitoneum. Small volume ascites throughout the abdomen and pelvis. VASCULATURE: Moderate atherosclerotic calcifications are present throughout the abdominal aorta and i ts branches. No evidence of aortic aneurysm. MUSCULOSKELETAL: No acute osseous abnormalities. No aggressive osseous lesion. Mild multilevel degene rative changes of the visualized spine. LYMPH NODES: No gross evidence for lymphadenopathy. SOFT TISSUE/ABDOMINAL WALL: Mild diffuse anasarca. IMPRESSION: 1. Small volume ascites throughout the abdomen and pelvis. 2. Subtle nodularity and widening of the fissures of the liver which just possible cirrhosis. Correla tion with liver function tests is recommended. 3. Distal colonic diverticulosis without evidence for acute diverticulitis. 4. Trace left and small right pleural effusions with bibasilar patchy airspace disease which may repr esent atelectasis versus infectious process. 5. Moderate-sized pericardial effusion.
[2022-08-01 15:27] LABS: Appearance,Urine Turbid (Clear); Bilirubin,Urine 1+ (Negative); Blood,Urine Trace (Negative); Color,Urine Dark Yellow; Glucose,Urine (UA) 1+ (Negative); Hyaline Casts,Urine 20 /lpf (0-2); Ketones,Urine Trace (Negative); Leukocyte Esterase,Urine Large (Negative); Mucus,Urine Rare /hpf; Nitrite,Urine Negative (Negative); Protein,Urine 2+ (Negative); RBC,Urine 7 /hpf (0-5); Specific Gravity,Urine 1.021 (1.001-1.035); Squamous Epithelial Cell,Urine 7 /hpf (0-4); WBC,Urine 28 /hpf (0-5)
[2022-08-01] MEDS ORDERED: PNEUMONIA PROTOCOL UTILIZED 1 EACH MISC PO PRN (15:54)
[2022-08-01] MEDS ORDERED: AZITHROMYCIN 500 MG in SODIUM CHLORIDE 0.9% 250 ML IVPB STA (15:54)
[2022-08-01] MEDS ORDERED: VANCOMYCIN IV PER PHARMACY 1 EACH MISC MISCELLANE PRN (15:55)
[2022-08-01] MEDS ORDERED: VANCOMYCIN 1,250 MG in SODIUM CHLORIDE 0.9% 250 ML IVPB STA (15:59)
[2022-08-01] MEDS ORDERED: PANTOPRAZOLE 40 MG/10 ML VIAL IVP ONE (16:11)
[2022-08-01] MEDS ORDERED: HYDROmorphone 0.5 MG/0.5 ML SYRINGE IVP STA (16:11)
[2022-08-01] MEDS: SODIUM CHLORIDE 0.9% 1,000 ML IV SCH ×2 (16:56→23:35)
[2022-08-01] MEDS ORDERED: ONDANSETRON 4 MG/2 ML VIAL IVP PRN (17:09)
[2022-08-01] MEDS ORDERED: METOCLOPRAMIDE 5 MG/ML 2 ML VIAL IVP PRN (17:49)
[2022-08-01] MEDS: PIPERACILLIN-TAZOBACTAM 3.375 GM in SODIUM CHLORIDE 0.9% 100 ML IVPB SCH (20:49)
[2022-08-01] MEDS ORDERED: FUROSEMIDE 10 MG/ML 10 ML VIAL IV STA (22:27)
--- NOTE | 2022-08-01 22:40 | XR ---
EXAMINATION TYPE: XR chest 1V portable DATE OF EXAM: 08/01/2022 COMPARISON: 08/01/2022 HISTORY: Short of breath TECHNIQUE: FINDINGS: Heart is enlarged. There is mild pulmonary congestion. There is some blunting of the costop hrenic angles. There is infiltrate at the right lung base. IMPRESSION: There is evidence of mild congestive heart failure with right lower lobe pneumonia. Chest appears slightly worse than exam of earlier today.
[2022-08-01 23:08] LABS: Glucose,Whole Blood 162 mg/dL (70-110)
[2022-08-01] MEDS ORDERED: NOREPINEPHRIN 4 MG-0.9% NS PMX 4 MG/250 ML ML IV ONE (23:15)
[2022-08-01] MEDS: NOREPINEPHRINE 4 MG in SODIUM CHLORIDE 0.9% 250 ML IV SCH (23:24)
[2022-08-01] MEDS ORDERED: NALOXONE 0.4 MG/ML 1 ML VIAL IV PRN (23:25)
[2022-08-02 00:05] LABS: Allen Test Performed? Yes
--- NOTE | 2022-08-02 00:05 | XR ---
EXAMINATION TYPE: XR chest 1V portable DATE OF EXAM: 08/01/2022 COMPARISON: Today HISTORY: Respiratory failure TECHNIQUE: FINDINGS: The endotracheal tube is 3.4 cm from the cortez. Heart is enlarged. Minimal pulmonary conge stion there is some infiltrate or atelectasis at the lung bases and more on the left side. There is b lunting left costophrenic angle. There are chest leads. There is nasogastric tube in the stomach. IMPRESSION: Infiltrate and atelectasis left lower lobe without much change compared to exam 2 hours a go. There is improved aeration of the right lung base compared to recent exam.
[2022-08-02] MEDS ORDERED: SODIUM BICARB 8.4% 50 ML SYR (1 MEQ/ML) IV STA (00:14)
[2022-08-02] MEDS ORDERED: SODIUM BICARB 8.4% 50 ML SYR (1 MEQ/ML) ONE ×2 (00:14→00:27)
[2022-08-02 00:18] LABS: ABG Base Excess -26.6 mmol/L; ABG HCO3 5 mmol/L (21-25); ABG PCO2 21 mmHg (35-45); ABG PH 6.98 (7.35-7.45); ABG PO2 293 mmHg (83-108); ABG TCO2 6 mmol/L (19-24)
[2022-08-02] MEDS ORDERED: EPINEPHrine 10 ML SYRINGE (0.1 MG/ML) ONE (00:27)
[2022-08-02] MEDS: DEXTROSE 5% IN WATER 1,000 ML with SODIUM BICARB (1 MEQ/ML) 150 ML IV SCH ×3 (00:40→21:32)
[2022-08-02 00:49] LABS: Glucose,Whole Blood 125 mg/dL (70-110)
[2022-08-02] MEDS: PIPERACILLIN-TAZOBACTAM 3.375 GM in SODIUM CHLORIDE 0.9% 100 ML IVPB SCH ×2 (02:13→21:31)
[2022-08-02 05:29] LABS: African American GFR (CKD) 11 (>60 ml/min/1.73 sqM); Anion Gap 32 mmol/L; Blood Urea Nitrogen 52 mg/dL (7-17); Calcium 7.6 mg/dL (8.4-10.2); Carbon Dioxide 11 mmol/L (22-30); Chloride 94 mmol/L (98-107); Non-African American GFR(CKD) 9 (>60 ml/min/1.73 sqM); Sodium 137 mmol/L (137-145)
--- NOTE | 2022-08-02 06:14 | XR ---
EXAMINATION TYPE: XR chest 1V portable DATE OF EXAM: 08/02/2022 CLINICAL HISTORY: Difficulty breathing progress study. History of lung cancer. TECHNIQUE: Single AP portable semiupright view of the chest is obtained. COMPARISON: Chest x-ray from one day earlier and older studies. FINDINGS: Stable endotracheal and orogastric tubes. Stable left basilar chest tube. Stable left basilar opacity. New small to moderate-sized right pleural effusion and right basilar opa [place]. New increased central markings bilaterally. Stable mild cardiomegaly. Surgical clips redemonstr ated overlying the right breast. Slight scoliotic curvature redemonstrated. IMPRESSION: Persistent cardiomegaly with small left pleural effusion and associated left basilar atel ectasis and/or infiltrate. Persistent left-sided chest tube without pneumothorax. No significant graves ge from one day earlier. New small to moderate-sized right pleural effusion and associated right basilar atelectasis and/or de veloping infiltrate. New mild to moderate central vascular congestion. Correlate for CHF exacerbation .
[2022-08-02 06:16] LABS: ABG Base Excess -9.2 mmol/L; ABG HCO3 17 mmol/L (21-25); ABG Hematocrit 34 % (34.0-46.0); ABG Oxygen Saturation 93.8 % (94-97); ABG PCO2 31 mmHg (35-45); ABG PH 7.34 (7.35-7.45); ABG PO2 77 mmHg (83-108); ABG TCO2 18 mmol/L (19-24); Allen Test Performed? Yes
[2022-08-02 06:34] LABS: ALT 4990 U/L (4-34)
[2022-08-02 06:37] LABS: Basophils # (A) 0.2 k/uL (0-0.2); Basophils % (A) 1 %; Eosinophils # (A) 0.1 k/uL (0-0.7); Eosinophils % (A) 0 %; HCT 38.3 % (34.0-46.0); HGB 12.4 gm/dL (11.4-16.0); Lymphocytes # (A) 0.9 k/uL (1.0-4.8); Lymphocytes % (A) 3 %; MCH 32.8 pg (25.0-35.0); MCHC 32.5 g/dL (31.0-37.0); MCV 100.9 fL (80.0-100.0); Macrocytosis Slight; Mean Platelet Volume 8.8; Monocytes # (A) 1.2 k/uL (0-1.0); Monocytes % (A) 4 %; Neutrophils # (A) 24.7 k/uL (1.3-7.7); Neutrophils % (A) 91 %; Platelet Count 296 k/uL (150-450); RBC 3.79 m/uL (3.80-5.40); RDW 13.5 % (11.5-15.5); WBC 27.2 k/uL (3.8-10.6)
[2022-08-02] MEDS: NOREPINEPHRINE 4 MG in SODIUM CHLORIDE 0.9% 250 ML IV SCH ×3 (07:30→21:32)
[2022-08-02 07:48] LABS: Glucose,Whole Blood 219 mg/dL (70-110)
[2022-08-02] MEDS: CHLORHEXIDINE GLUCONATE 15 ML CUP MUCOUS MEM SCH ×2 (08:16→21:31)
[2022-08-02] MEDS ORDERED: VANCOMYCIN 1,250 MG in SODIUM CHLORIDE 0.9% 250 ML IVPB ONE (09:00)
[2022-08-02] MEDS ORDERED: AZITHROMYCIN 500 MG TAB PO SCH (09:00)
[2022-08-02 09:54] LABS: ABG Base Excess -2.7 mmol/L; ABG HCO3 20 mmol/L (21-25); ABG Hematocrit 34 % (34.0-46.0); ABG Oxygen Saturation 98.7 % (94-97); ABG PCO2 24 mmHg (35-45); ABG PH 7.53 (7.35-7.45); ABG PO2 107 mmHg (83-108); ABG TCO2 21 mmol/L (19-24)
--- NOTE | 2022-08-02 10:09 | XR ---
EXAMINATION TYPE: XR chest 1V confirm line [facility] DATE OF EXAM: 08/02/2022 COMPARISON: Chest x-ray 08/02/2022 at earlier time HISTORY: Subclavian line placement TECHNIQUE: Single frontal view of the chest is obtained. FINDINGS: There has been interval placement of a right subclavian central venous catheter, distal ti p is within the right atrium. Patient is rotated. NG tube shows the side port at the level of the tho racic esophagus, as likely withdrawn in the interval No evident pneumothorax or other significant int erval change. IMPRESSION: No evident complication status post central venous catheter placement. NG tube as descri bed.
[2022-08-02 10:35] LABS: Basophils % (A) 0 %; Eosinophils % (A) 0 %; Lymphocytes # (A) 0.8 k/uL (1.0-4.8); Lymphocytes % (A) 4 %; MCH 33.1 pg (25.0-35.0); MCHC 34.3 g/dL (31.0-37.0); MCV 96.3 fL (80.0-100.0); Mean Platelet Volume 8.3; Monocytes # (A) 0.6 k/uL (0-1.0); Monocytes % (A) 3 %; Neutrophils # (A) 19.6 k/uL (1.3-7.7); Neutrophils % (A) 93 %; Platelet Count 253 k/uL (150-450); RBC 3.01 m/uL (3.80-5.40); RDW 13.6 % (11.5-15.5); WBC 21.1 k/uL (3.8-10.6)
[2022-08-02 10:39] LABS: HGB 9.9 gm/dL (11.4-16.0)
[2022-08-02] MEDS: SODIUM CHLORIDE 0.9% 1,000 ML IV SCH (10:44)
[2022-08-02] MEDS: ENOXAPARIN 30 MG/0.3 ML SYRINGE SQ SCH (10:46)
[2022-08-02 11:41] LABS: Glucose,Whole Blood 236 mg/dL (70-110)
--- NOTE | 2022-08-02 12:49 | P.CNPUL ---
History of Present Illness Consult date: 08/02/22 Requesting physician: Chay Arndt Reason for consult: hypoxemia (Critical care/ventilator management) Chief complaint: Abdominal pain, nausea, vomiting History of present illness: This is an 87-year-old female patient with a known history of diabetes mellitus, hyperlipidemia, hypertension, osteoarthritis, right sided breast cancer with previous lumpectomy 2. She was recently found to have stage IV adenocarcinoma of the lung following thoracentesis 2. She also had a Pleurx catheter placed to the left chest on 04/06/2022. She did receive some form of treatment in April. She presented to the emergency room yesterday with complaints of nausea and vomiting for 5 days prior. She also was having increasing shortness of breath especially with conversation. Diffuse abdominal discomfort. X-ray revealed a small left pleural effusion and left lower lobe patchy airspace opacity with left chest tube in place. Evidence of COPD. Computed tomography scan of the abdomen and pelvis revealed small volume ascites throughout the abdomen and pelvis. Subtle nodularity and widening of the fissures of the liver with some possible cirrhosis. Distal colonic diverticulosis without divert iculitis. Trace left and small right pleural effusions with by basilar patchy airspace disease. Moderate sized paracardial effusion. If she was admitted to the intensive care unit last evening around 20:55 and was found to be quite hypoxemic with O2 saturation of 76% on 100% FiO2. She was subsequently intubated and placed on mechanical ventilator. Shortly after midnight she developed pulseless electrical activity and received 10 minutes of CPR with 2 A of epinephrine and a total of 6 A of sodium bicarbonate. She did develop return of spontaneous circulation. She is seen this morning in consultation in the ICU. She is currently on the mechanical ventilator at a rate of 28, FiO2 60%, t idal volume 500, PEEP of 10. Peak pressure 37, plateau pressure 32. 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 And, she is sedated on propofol at 40 mcg/kg/m. Requiring norepinephrine at 0.3 mcg/kg/m which is approximately 21 g. She is receiving D5W with 3 A of bicarb at 150 ML's per hour. She was initiated on vancomycin and Zosyn. She developed multiply system organ failure. Urine output has decreased with only 20 ML's output this morning. Urine and sputum cultures pending. White count 21.1. Hemoglobin 9.9. Platelets 253. Follow-up arterial blood gases revealed a pO2 of 107, pCO2 24, pH 7.53 on 50% FiO2. Lactic acid 12.2. Sodium 137. Potassium 5.3. Bicarb 11. BUN 52. Creatinine 4.13. Glucose 116. AST 6741. ALT 4990. Review of Systems ROS unobtainable: due to endotracheal tube Past Medical History Past Medical History: Cancer, Diabetes Mellitus, Hearing Disorder / Deafness, Hyperlipidemia, Hypertension, Osteoarthritis (OA), Pneumonia, Skin Disorder Additional Past Medical History / Comment(s): Recently treated for UTI with antibiotics, L lung cancer tx with keytruda, L pleural effusions with 2 previous thoracentesis, L pleurx cath in place/drained weekly by daughter, home oxygen, multiple pneumonias, past R breast cancer with lumpectomies x 2/took anastazole for 5 yrs after 1st lumpectomy then later found out it was not cancer at that time/2nd lumpectomy was positive for cancer/no chemo/no radiation, bronchitis, h ypoglycemia/manages with diet per yulissa, bilateral tinnitis. History of Any Multi-Drug Resistant Organisms: None Reported Past Surgical History: Appendectomy, Breast Surgery, Cholecystectomy, Hysterectomy, Tonsillectomy Additional Past Surgical History / Comment(s): 04/06/22 pleurx catheter, thoracentesis on 03/11/22 and 03/28/22, R breast biopsy, R breast lumpectomy x2, Past Anesthesia/Blood Transfusion Reactions: No Reported Reaction Smoking Status: Former smoker - Past Family History Father Family Medical History: Coronary Artery Disease (CAD), Myocardial Infarction (MT) Additional Family Medical History / Comment(s): EtOH abuse Sister(s) Family Medical History: Cancer Additional Family Medical History / Comment(s): OVARIAN CA Brother(s) Family Medical History: Cancer Additional Family Medical History / Comment(s): BROTHER #1 KIDNEY CA. BROTHER #2 PROSTATE CA Daughter(s) Family Medical History: Cancer Additional Family Medical History / Comment(s): OVARIAN CANCER, breast cancer Mother Family Medical History: Coronary Artery Disease (CAD), Diabetes Mellitus, Myocardial Infarction (MT) Medications and Allergies Home Medications Medication Instructions Recorded Confirmed Type Aspirin EC [Ecotrin Low Dose] 81 mg PO DAILY 08/17/15 08/01/22 History Lisinopril-Hctz 20-25 mg 1 tab PO DAILY 08/17/15 08/01/22 History [Zestoretic 20-25] Multivitamins, Thera [Multivitamin 1 tab PO DAILY 08/17/15 08/01/22 History (formulary)] amLODIPine [Norvasc] 5 mg PO HS 08/17/15 08/01/22 History Ascorbic Acid [Vitamin C] 500 mg PO DAILY 03/10/22 08/01/22 History Simvastatin [Zocor] 2.5 mg PO HS 04/05/22 08/01/22 History Vitamin C/Biotin [Hair, Skin and 1 tab PO DAILY 08/01/22 08/01/22 History Nails Chew] Allergies Allergy/AdvReac Type Severity Reaction Status Date / Time methylprednisolone Allergy Unknown Rash/Hives Verified 08/01/22 14:01 [From [employer]] Physical Exam Vitals: Vital Signs Temp Pulse Pulse Resp BP BP Pulse Ox 08/02/22 11:21 08/02/22 11:11 08/02/22 10:57 08/02/22 09:06 08/02/22 08:10 08/02/22 07:55 114 H 23 115/71 99 08/02/22 07:50 120 H 28 H 117/69 100 08/02/22 07:45 112 H 28 H 125/75 100 08/02/22 07:40 116 H 28 H 125/75 100 08/02/22 07:35 118 H 28 H 82/55 100 08/02/22 07:30 120 H 28 H 109/66 99 08/02/22 07:25 112 H 28 H 110/68 99 08/02/22 07:20 129 H 28 H 91/60 98 08/02/22 07:15 19 68/55 81 L 08/02/22 07:10 113 H 13 91/63 99 08/02/22 07:05 128 H 14 105/70 95 08/02/22 07:00 102 H 28 H 120/78 100 08/02/22 06:55 121 H 28 H 121/71 99 08/02/22 06:50 130 H 28 H 124/80 97 08/02/22 06:45 115 H 28 H 123/77 100 08/02/22 06:40 120 H 28 H 125/79 99 08/02/22 06:35 117 H 28 H 120/79 100 08/02/22 06:30 120 H 28 H 130/78 99 08/02/22 06:25 122 H 28 H 116/77 99 08/02/22 06:20 109 H 28 H 121/71 96 08/02/22 06:15 122 H 28 H 123/78 100 08/02/22 06:10 122 H 28 H 119/70 95 08/02/22 06:05 112 H 28 H 111/72 98 08/02/22 06:00 104 H 28 H 116/79 98 08/02/22 05:55 94 28 H 115/75 97 08/02/22 05:50 101 H 28 H 117/93 97 08/02/22 05:45 102 H 28 H 114/67 96 08/02/22 05:40 102 H 28 H 99/62 97 08/02/22 05:35 113 H 28 H 106/60 97 08/02/22 05:30 102 H 28 H 106/59 97 08/02/22 05:25 94 28 H 135/73 97 08/02/22 05:20 100 28 H 118/81 95 08/02/22 05:15 108 H 31 H 119/73 97 08/02/22 05:10 101 H 28 H 134/70 88 L 08/02/22 05:05 94 28 H 118/77 95 08/02/22 05:00 96 28 H 123/69 94 L 08/02/22 04:55 96 28 H 122/71 96 08/02/22 04:50 95 28 H 109/75 98 08/02/22 04:45 128 H 28 H 113/80 100 08/02/22 04:40 128 H 28 H 112/68 97 08/02/22 04:35 125 H 28 H 116/62 97 08/02/22 04:30 113 H 28 H 112/76 96 08/02/22 04:25 117 H 28 H 107/85 99 08/02/22 04:20 138 H 28 H 106/72 99 08/02/22 04:15 122 H 28 H 109/66 99 08/02/22 04:10 116 H 29 H 109/66 99 08/02/22 04:05 129 H 29 H 97/68 97 08/02/22 04:01 08/02/22 04:00 96.2 F L 131 H 28 H 99 08/02/22 03:55 117 H 28 H 105/67 99 08/02/22 03:50 124 H 24 115/64 97 08/02/22 03:45 116 H 28 H 114/73 95 08/02/22 03:40 109 H 28 H 101/70 98 08/02/22 03:35 118 H 28 H 96/58 100 08/02/22 03:30 128 H 28 H 95/56 99 08/02/22 03:25 120 H 28 H 81/59 96 08/02/22 03:20 122 H 31 H 96/72 100 08/02/22 03:15 113 H 32 H 104/63 94 L 08/02/22 03:10 125 H 30 H 96/62 96 08/02/22 03:05 120 H 28 H 97/71 92 L 08/02/22 03:00 137 H 28 H 91/58 100 08/02/22 02:55 131 H 28 H 89/59 100 08/02/22 02:50 124 H 30 H 102/52 91 L 08/02/22 02:45 116 H 24 97/76 83 L 08/02/22 02:40 122 H 28 H 97/76 90 L 08/02/22 02:35 30 H 84/59 85 L 08/02/22 02:30 114 H 28 H 84/59 99 08/02/22 02:25 129 H 28 H 85/55 100 08/02/22 02:20 112 H 28 H 84/54 99 08/02/22 02:15 115 H 28 H 95/85 82 L 08/02/22 02:10 114 H 28 H 79/48 96 08/02/22 02:05 110 H 29 H 73/54 100 08/02/22 02:00 115 H 28 H 77/50 98 08/02/22 01:55 128 H 29 H 69/47 98 08/02/22 01:50 118 H 28 H 69/46 99 08/02/22 01:45 116 H 28 H 72/29 100 08/02/22 01:40 120 H 29 H 96/83 08/02/22 01:35 106 H 30 H 96/83 09/06/22 01:30 95.9 F L 125 H 28 H 59/35 08/02/22 01:25 125 H 28 H 71/34 08/02/22 01:20 146 H 28 H 109/95 08/02/22 01:15 117 H 28 H 167/149 08/02/22 01:10 130 H 28 H 107/45 08/02/22 01:05 137 H 28 H 66/47 08/02/22 01:00 147 H 28 H 74/47 08/02/22 00:55 156 H 28 H 105/63 08/02/22 00:50 135 H 27 H 136/75 08/02/22 00:45 130 H 28 H 194/89 08/02/22 00:40 112 H 28 H 202/111 08/02/22 00:35 22 08/02/22 00:30 20 08/02/22 00:25 54 L 28 H 08/02/22 00:20 83 34 H 63/42 08/02/22 00:15 87 34 H 63/45 08/02/22 00:10 94 34 H 145/112 08/02/22 00:05 90 32 H 148/51 08/02/22 00:00 83 31 H 08/01/22 23:55 86 34 H 120/84 08/01/22 23:50 88 28 H 84/38 08/01/22 23:45 88 28 H 84/38 08/01/22 23:40 90 22 08/01/22 23:35 91 28 H 08/01/22 23:30 89 28 H 108/66 08/01/22 23:25 85 28 H 87/52 08/01/22 23:23 08/01/22 23:20 109 H 7 L 145/55 08/01/22 23:15 90 38 H 51/26 79 L 08/01/22 23:10 100 30 H 91/56 77 L 08/01/22 22:45 113 H 32 H 154/70 88 L 08/01/22 22:37 08/01/22 21:48 97.3 F L 84 20 93/65 94 L 08/01/22 20:00 97.5 F L 82 24 80/65 96 08/01/22 19:00 94.2 F L 85 75/63 08/01/22 15:27 89 18 101/74 97 08/01/22 14:30 92 18 92/78 96 08/01/22 13:25 92 18 96/70 96 FiO2 08/02/22 11:21 50 08/02/22 11:11 50 08/02/22 10:57 45 08/02/22 09:06 50 08/02/22 08:10 60 08/02/22 07:55 08/02/22 07:50 08/02/22 07:45 08/02/22 07:40 08/02/22 07:35 08/02/22 07:30 08/02/22 07:25 08/02/22 07:20 08/02/22 07:15 08/02/22 07:10 08/02/22 07:05 08/02/22 07:00 08/02/22 06:55 08/02/22 06:50 08/02/22 06:45 60 08/02/22 06:40 60 08/02/22 06:35 60 08/02/22 06:30 60 08/02/22 06:25 60 08/02/22 06:20 60 08/02/22 06:15 60 08/02/22 06:10 60 08/02/22 06:05 60 08/02/22 06:00 60 08/02/22 05:55 60 08/02/22 05:50 60 08/02/22 05:45 60 08/02/22 05:40 60 08/02/22 05:35 60 08/02/22 05:30 60 08/02/22 05:25 60 08/02/22 05:20 60 08/02/22 05:15 60 08/02/22 05:10 60 08/02/22 05:05 60 08/02/22 05:00 60 08/02/22 04:55 60 08/02/22 04:50 60 08/02/22 04:45 60 08/02/22 04:40 60 08/02/22 04:35 60 08/02/22 04:30 60 08/02/22 04:25 60 08/02/22 04:20 60 08/02/22 04:15 60 08/02/22 04:10 60 08/02/22 04:05 60 08/02/22 04:01 60 08/02/22 04:00 60 08/02/22 03:55 70 08/02/22 03:50 08/02/22 03:45 70 08/02/22 03:40 70 08/02/22 03:35 70 08/02/22 03:30 70 08/02/22 03:25 70 08/02/22 03:20 70 08/02/22 03:15 70 08/02/22 03:10 70 08/02/22 03:05 70 08/02/22 03:00 70 08/02/22 02:55 70 08/02/22 02:50 70 08/02/22 02:45 08/02/22 02:40 08/02/22 02:35 08/02/22 02:30 08/02/22 02:25 08/02/22 02:20 08/02/22 02:15 08/02/22 02:10 08/02/22 02:05 70 08/02/22 02:00 70 08/02/22 01:55 70 08/02/22 01:50 70 08/02/22 01:45 70 08/02/22 01:40 70 08/02/22 01:35 70 08/02/22 01:30 70 08/02/22 01:25 70 08/02/22 01:20 70 08/02/22 01:15 70 08/02/22 01:10 70 08/02/22 01:05 08/02/22 01:00 70 08/02/22 00:55 70 08/02/22 00:50 70 08/02/22 00:45 08/02/22 00:40 08/02/22 00:35 08/02/22 00:30 08/02/22 00:25 70 08/02/22 00:20 08/02/22 00:15 08/02/22 00:10 08/02/22 00:05 08/02/22 00:00 08/01/22 23:55 08/01/22 23:50 08/01/22 23:45 08/01/22 23:40 08/01/22 23:35 08/01/22 23:30 08/01/22 23:25 08/01/22 23:23 100 08/01/22 23:20 100 08/01/22 23:15 08/01/22 23:10 08/01/22 22:45 08/01/22 22:37 100 08/01/22 21:48 08/01/22 20:00 08/01/22 19:00 08/01/22 15:27 08/01/22 14:30 08/01/22 13:25 Intake and Output 08/01/22 08/02/22 08/02/22 22:59 06:59 14:59 Intake Total 2155.586 721.019 Output Total 0 20 Balance 2155.586 701.019 Intake: IV 2060 280 0.9 NaCl- 910 130 Dextrose 5% in Water 1, 1050 150 000 ml @ 150 mls/hr IV . Q7H40M ESPINOZA with Sodium Bicarb (1 Meq/ml) 150 ml Rx#:[id number] Zosyn 100 Intake, IV Titration 95.586 441.019 Amount Norepinephrine 4 mg In 68.954 424.573 Sodium Chloride 0.9% 250 ml @ 0.05 MCG/KG/MIN 12. 097 mls/hr IV .Q21H ESPINOZA Rx#:[id number] propofoL 1,000 mg In 26.632 16.446 Empty Bag 1 bag @ 5 MCG/ KG/MIN 1.905 mls/hr IV . Q24H ESPINOZA Rx#:[id number] Output: Urine 0 20 Other: Voiding Method Indwelling Catheter Weight 74.4 kg 74.4 kg GENERAL EXAM: Intubated, sedated 87-year-old female patient, comfortable in no apparent distress. HEAD: Normocephalic. EYES: Sluggish reaction of pupils, equal size. NOSE: Clear with pink turbinates. THROAT: Endotracheal, gastric tube secured in place No erythema or exudates. NECK: No masses, no JVD. CHEST: No chest wall deformity. LUNGS: Equal air entry with few scattered rhonchi. CVS: S1 and S2 normal with no audible murmur, regular rhythm. ABDOMEN: No hepatosplenomegaly, normal bowel sounds, no guarding or rigidity. SPINE: No scoliosis or deformity SKIN: No rashes CENTRAL NERVOUS SYSTEM: No focal deficits, tone is normal in all 4 extremities. EXTREMITIES: There is no peripheral edema. No clubbing, no cyanosis. Peripheral pulses are intact. Results - Laboratory Findings CBC and BMP: 08/02/22 09:50 08/02/22 05:01 ABG ABG pH 7.53 (7.35-7.45) H 08/02/22 09:52 ABG pCO2 24 mmHg (35-45) L 08/02/22 09:52 ABG pO2 107 mmHg (83-108) 08/02/22 09:52 ABG O2 Saturation 98.7 % (94-97) H 08/02/22 09:52 PT/INR, D-dimer PT 11.6 sec (9.0-12.0) 08/01/22 12:36 INR 1.1 (<1.2) 08/01/22 12:36 Abnormal lab findings: Abnormal Labs 08/01/22 08/01/22 08/01/22 12:36 12:36 12:36 WBC 17.8 H RBC Hgb Hct MCV Plt Count 455 H Neutrophils # 14.4 H Lymphocytes # Monocytes # 1.1 H APTT 21.6 L ABG pH ABG pCO2 ABG pO2 ABG HCO3 ABG Total CO2 ABG O2 Saturation Hemoglobin Sodium 130 L Potassium 5.6 H Chloride 87 L Carbon Dioxide 19 L BUN 53 H Creatinine 3.84 H Glucose 182 H POC Glucose (mg/dL) Plasma Lactic Acid Wesly Calcium Phosphorus Total Bilirubin AST 442 H ALT 369 H Alkaline Phosphatase Total Protein Albumin Urine Appearance Urine Protein Urine Glucose (UA) Urine Ketones Urine Blood Urine Bilirubin Ur Leukocyte Esterase Urine RBC Urine WBC Ur Squamous Epith Cells Hyaline Casts Urine Mucus 08/01/22 08/01/22 08/01/22 12:36 14:54 17:34 WBC RBC Hgb Hct MCV Plt Count Neutrophils # Lymphocytes # Monocytes # APTT ABG pH ABG pCO2 ABG pO2 ABG HCO3 ABG Total CO2 ABG O2 Saturation Hemoglobin Sodium Potassium Chloride Carbon Dioxide BUN Creatinine Glucose POC Glucose (mg/dL) Plasma Lactic Acid Wesly 7.1 H* 8.8 H* Calcium Phosphorus Total Bilirubin AST ALT Alkaline Phosphatase Total Protein Albumin Urine Appearance Turbid H Urine Protein 2+ H Urine Glucose (UA) 1+ H Urine Ketones Trace H Urine Blood Trace H Urine Bilirubin 1+ H Ur Leukocyte Esterase Large H Urine RBC 7 H Urine WBC 28 H Ur Squamous Epith Cells 7 H Hyaline Casts 20 H Urine Mucus Rare H 09/05/22 09/05/22 09/06/22 23:07 23:07 00:00 WBC RBC Hgb Hct MCV Plt Count Neutrophils # Lymphocytes # Monocytes # APTT ABG pH 6.98 L* ABG pCO2 21 L ABG pO2 293 H ABG HCO3 5 L* ABG Total CO2 6 L ABG O2 Saturation 99.0 H Hemoglobin Sodium Potassium Chloride Carbon Dioxide BUN Creatinine Glucose POC Glucose (mg/dL) 162 H Plasma Lactic Acid Wesly 15.3 H* Calcium Phosphorus Total Bilirubin AST ALT Alkaline Phosphatase Total Protein Albumin Urine Appearance Urine Protein Urine Glucose (UA) Urine Ketones Urine Blood Urine Bilirubin Ur Leukocyte Esterase Urine RBC Urine WBC Ur Squamous Epith Cells Hyaline Casts Urine Mucus 08/02/22 08/02/22 08/02/22 00:44 05:01 05:48 WBC 27.2 H RBC 3.79 L Hgb Hct MCV 100.9 H Plt Count Neutrophils # 24.7 H Lymphocytes # 0.9 L Monocytes # 1.2 H APTT ABG pH ABG pCO2 ABG pO2 ABG HCO3 ABG Total CO2 ABG O2 Saturation Hemoglobin Sodium Potassium 5.3 H Chloride 94 L Carbon Dioxide 11 L BUN 52 H Creatinine 4.13 H Glucose 116 H POC Glucose (mg/dL) 125 H Plasma Lactic Acid Wesly Calcium 7.6 L Phosphorus 12.3 H* Total Bilirubin 1.8 H AST 6741 H ALT 4990 H Alkaline Phosphatase <20 L Total Protein 5.7 L Albumin 3.0 L Urine Appearance Urine Protein Urine Glucose (UA) Urine Ketones Urine Blood Urine Bilirubin Ur Leukocyte Esterase Urine RBC Urine WBC Ur Squamous Epith Cells Hyaline Casts Urine Mucus 08/02/22 08/02/22 08/02/22 05:48 06:07 07:46 WBC RBC Hgb Hct MCV Plt Count Neutrophils # Lymphocytes # Monocytes # APTT ABG pH 7.34 L ABG pCO2 31 L ABG pO2 77 L ABG HCO3 17 L ABG Total CO2 18 L ABG O2 Saturation 93.8 L Hemoglobin 11.1 L Sodium Potassium Chloride Carbon Dioxide BUN Creatinine Glucose POC Glucose (mg/dL) 219 H Plasma Lactic Acid Wesly 17.5 H* Calcium Phosphorus Total Bilirubin AST ALT Alkaline Phosphatase Total Protein Albumin Urine Appearance Urine Protein Urine Glucose (UA) Urine Ketones Urine Blood Urine Bilirubin Ur Leukocyte Esterase Urine RBC Urine WBC Ur Squamous Epith Cells Hyaline Casts Urine Mucus 08/02/22 08/02/22 08/02/22 09:50 09:50 09:52 WBC 21.1 H RBC 3.01 L Hgb 9.9 L D Hct 29.0 L MCV Plt Count Neutrophils # 19.6 H Lymphocytes # 0.8 L Monocytes # APTT ABG pH 7.53 H ABG pCO2 24 L ABG pO2 ABG HCO3 20 L ABG Total CO2 ABG O2 Saturation 98.7 H Hemoglobin 11.2 L Sodium Potassium Chloride Carbon Dioxide BUN Creatinine Glucose POC Glucose (mg/dL) Plasma Lactic Acid Wesly 12.2 H* Calcium Phosphorus Total Bilirubin AST ALT Alkaline Phosphatase Total Protein Albumin Urine Appearance Urine Protein Urine Glucose (UA) Urine Ketones Urine Blood Urine Bilirubin Ur Leukocyte Esterase Urine RBC Urine WBC Ur Squamous Epith Cells Hyaline Casts Urine Mucus 08/02/22 11:40 WBC RBC Hgb Hct MCV Plt Count Neutrophils # Lymphocytes # Monocytes # APTT ABG pH ABG pCO2 ABG pO2 ABG HCO3 ABG Total CO2 ABG O2 Saturation Hemoglobin Sodium Potassium Chloride Carbon Dioxide BUN Creatinine Glucose POC Glucose (mg/dL) 236 H Plasma Lactic Acid Wesly Calcium Phosphorus Total Bilirubin AST ALT Alkaline Phosphatase Total Protein Albumin Urine Appearance Urine Protein Urine Glucose (UA) Urine Ketones Urine Blood Urine Bilirubin Ur Leukocyte Esterase Urine RBC Urine WBC Ur Squamous Epith Cells Hyaline Casts Urine Mucus - Diagnostic Findings Chest x-ray: image reviewed Assessment and Plan Assessment: Initial presentation of abdominal pain with nausea and vomiting 5 days prior of unclear etiology Acute hypoxemic respiratory failure secondary to suspected flash pulmonary edema/ARDS/pneumonia Acute pulmonary arrest requiring approximately 10 minutes of CPR with return of spontaneous circulation Multisystem organ failure secondary to above Shock liver Acute renal failure Acute lactic acidosis History of stage IV adenocarcinoma of the lung with positive pathology on thoracentesis 03/28/2022 Recurrent left-sided thoracentesis status post left-sided Pleurx catheter placed on 04/06/2022 Diabetes mellitus Hyperlipidemia History of hypertension Osteoarthritis History of right-sided breast cancer with previous lumpectomy Former smoker Oxygen dependent respiratory failure maintained on 3 L/m per nasal cannula outpatient setting Plan: The patient was seen and evaluated Chest x-ray, CAT scan, ABGs and labs reviewed Ventilatory rate decreased to 22, FiO2 decreased to 50%, PEEP decreased 8 Decreased bicarb drip to 75 ML's per hour Follow-up chest x-ray and ABGs in the a.m. Right subclavian central line placed Left radial arterial line placed Continue vancomycin and Zosyn Discontinue azithromycin and Rocephin Obtain echocardiogram Lovenox for DVT prophylaxis Add DuoNeb inhalations every 4 hours Titrate the FiO2 as tolerated Overall prognosis is quite poor Dr. Pritchard did spend several minutes speaking with the patient's daughter They're deciding regarding CODE STATUS/comfort care We'll continue with current treatment plan until decisions are made We will continue to follow and make further recommendations based on her clinical status I have personally seen and examined the patient, performed the documentation and the assessment and plan as written. Number of minutes spent on the visit: 20.
--- NOTE | 2022-08-02 19:10 | OP ---
OPERATIVE REPORT OPERATIVE REPORT: Placement of a right subclavian triple-lumen catheter. PREOPERATIVE DIAGNOSES: Acute hypoxic respiratory failure and septic shock. POSTOPERATIVE DIAGNOSES: Acute hypoxic respiratory failure and septic shock. ANESTHESIA USED: 2 mL of 1% lidocaine. DESCRIPTION OF PROCEDURE: The patient was placed in the supine position. The area of the right subclavian region was prepared in a sterile fashion. The drapes were applied. The area below the right clavicle was locally anesthetized with lidocaine. Then, using the infraclavicular approach, the right subclavian vein was cannulated, and a guidewire was placed. The area on the guidewire was dilated, and a triple-lumen catheter was inserted over the guidewire. The guidewire was removed. Good blood flow noted in the 3 different ports of the triple-lumen catheter. Line was secured using 3-0 silk sutures. Chest x-ray showed no evidence of complications postoperatively. Again, procedure was well tolerated. MMODL / IJN: [id number] /
--- NOTE | 2022-08-02 19:13 | OP ---
OPERATIVE REPORT OPERATIVE REPORT: Placement of a left radial arterial line. PREOPERATIVE DIAGNOSES: Acute hypoxic respiratory failure and septic shock. POSTOPERATIVE DIAGNOSIS: Acute hypoxic respiratory failure and septic shock. ANESTHESIA USED: None deployed. DESCRIPTION OF PROCEDURE: The left wrist was prepared in a sterile fashion. Drapes were applied. The left radial artery was palpated, cannulated easily, and a guidewire was placed. A Cook catheter was inserted over the guidewire and the guidewire was removed. Good blood flow, good waveform noted. No complications. Line was secured using 3-0 silk sutures. MMODL / IJN: [id number] /
--- NOTE | 2022-08-02 23:25 | CONS ---
CONSULTATION HISTORY OF PRESENT ILLNESS: Holli is an 87-year-old lady with history of stage IV lung cancer, pleural effusion, status post pleural drain placement, hypertension, and dyslipidemia who presented to hospital complaining of nausea, vomiting and abdominal discomfort. She had a cardiorespiratory arrest last night and had to be resuscitated, intubated on vent. At the time of my evaluation, the patient is intubated on vent, adequately oxygenated and sedated. She had a CT scan of the abdomen and pelvis on which pericardial effusion was noted for which Cardiology had been consulted. She also had an echocardiogram, those results are pending at this time. She is hypotensive and is on Levophed for the same, but at the time of my evaluation she is in sinus rhythm and stable hemodynamically. Clinically, there is no evidence of tamponade. PAST MEDICAL HISTORY: Significant for breast cancer, lung cancer, pleural effusion, hypertension, and dyslipidemia. MEDICATIONS: 1. Aspirin. 2. Zestoretic. 3. Norvasc 5 daily. 4. Zocor. 5. Vitamin C. ALLERGIES: To Medrol. Family history, social history, review of systems, unable to obtain from the patient who is intubated on vent. PHYSICAL EXAMINATION: GENERAL: On exam, intubated, sedated, comfortable at rest. VITAL SIGNS: Stable. CHEST: Reveals good air entry bilaterally HEART: Reveals first and second heart sounds. No gallop, no murmur. ABDOMEN: Soft. EXTREMITIES: Did not reveal any edema. Peripheral pulses are felt. LABORATORY DATA: Labs showed that the hemoglobin is 9.9, potassium is 5.3, BUN is 52, creatinine is 4.1. ASSESSMENT: 1. Moderate pericardial effusion. 2. Status post cardiorespiratory arrest. 3. Stage IV lung cancer. PLAN: I will follow the echo results. The patient's prognosis is guarded. No cardiac intervention at this time. MMODL / IJN: [id number] /
[2022-08-03 00:45] LABS: Glucose,Whole Blood 144 mg/dL (70-110)
[2022-08-03] MEDS: SODIUM CHLORIDE 0.9% 1,000 ML IV SCH ×2 (02:09→20:53)
[2022-08-03 05:23] LABS: Albumin 2.4 g/dL (3.5-5.0); Magnesium 1.7 mg/dL (1.6-2.3); Phosphorus 4.8 mg/dL (2.5-4.5); Potassium 3.5 mmol/L (3.5-5.1); Total Bilirubin 1.4 mg/dL (0.2-1.3); Total Protein 4.4 g/dL (6.3-8.2)
[2022-08-03 05:25] LABS: ABG PH 7.65 (7.35-7.45); Allen Test Performed? no
[2022-08-03 05:26] LABS: ABG HCO3 27 mmol/L (21-25); ABG PCO2 24 mmHg (35-45); ABG PO2 99 mmHg (83-108); ABG TCO2 28 mmol/L (19-24)
[2022-08-03 05:53] LABS: Basophils % (A) 0 %; Eosinophils % (A) 0 %; HCT 35.4 % (34.0-46.0); HGB 12.1 gm/dL (11.4-16.0); Lymphocytes # (A) 0.8 k/uL (1.0-4.8); Lymphocytes % (A) 4 %; MCH 31.8 pg (25.0-35.0); MCV 93.4 fL (80.0-100.0); Mean Platelet Volume 8.4; Monocytes # (A) 0.8 k/uL (0-1.0); Monocytes % (A) 4 %; Neutrophils # (A) 18.8 k/uL (1.3-7.7); Neutrophils % (A) 92 %; Platelet Count 247 k/uL (150-450); RBC 3.79 m/uL (3.80-5.40); RDW 13.2 % (11.5-15.5); WBC 20.6 k/uL (3.8-10.6)
[2022-08-03 06:31] LABS: Glucose,Whole Blood 157 mg/dL (70-110)
[2022-08-03 06:53] LABS: Calcium 6.3 mg/dL (8.4-10.2)
[2022-08-03] MEDS ORDERED: Potassium Replacement Protocol 1 EACH MISC MISCELLANE PRN (07:10)
[2022-08-03] MEDS ORDERED: CALCIUM GLUCONATE IN NACL 1 GM in SALINE 1 100ML.BAG IVPB ONE (08:00)
--- NOTE | 2022-08-03 08:01 | CONS ---
CONSULTATION REASON FOR CONSULT: Acute kidney injury. HISTORY OF PRESENT ILLNESS: The patient is an 87-year-old female. P;EASE SEE NEXT REPORT DICTATION ENDS HERE. MMODL / IJN: [id number] / POLLO
[2022-08-03] MEDS: POTASSIUM CHLORIDE 20 MEQ in WATER FOR INJECTION 1 100ML.BAG IVPB SCH ×2 (08:25→10:45)
[2022-08-03] MEDS: NOREPINEPHRINE 4 MG in SODIUM CHLORIDE 0.9% 250 ML IV SCH ×3 (08:35→21:54)
--- NOTE | 2022-08-03 09:28 | XR ---
EXAM: XR Chest, 1 View CLINICAL HISTORY: ITS.REASON XR Reason: Tube placement TECHNIQUE: Frontal view of the chest. COMPARISON: No relevant prior studies available. FINDINGS: Lungs: Asymmetric interstitial opacity, right worse than left. This may reflect asymmetric edema or pneumonia. Dense opacities in the lung bases, likely small effusions and/or bibasilar atelectasis. Pleural space: No gross pneumothorax. Heart: Cardiovascular silhouette within normal limits, accentuated by rotated position.. Mediastinum: Calcified thoracic aorta again noted. Bones/joints: Unremarkable. Tubes, lines and devices: Endotracheal tube tip approximately 2 cm from the cortez. Consider pulling back by approximately 1 cm. NG tube, tip near the GE junction. Recommend advancement by approximately 10 cm. Side-port of the NG tube is seen in the mid to distal esophagus. Right- sided central venous catheter, tip likely in the right atrium. Overlying chest leads obscure portion of the chest. Tubing projecting over the mediastinum. Other findings: Rotated position limit evaluation. IMPRESSION: 1. Endotracheal tube tip approximately 2 cm from the cortez. Consider pulling back approximately 1 cm. 2. NG tube, tip near the GE junction. Recommend advancement as described. 3. Right-sided central venous catheter, tip near the right atrium. No pneumothorax 4. Asymmetric edema versus pneumonia, right worse than left. 5. Small bilateral pleural effusions and bibasilar atelectasis/airspace disease suspected
[2022-08-03] MEDS ORDERED: FUROSEMIDE 10 MG/ML 10 ML VIAL IV STA (09:30)
--- NOTE | 2022-08-03 09:50 | CA ---
Transthoracic Echo Report Name: Holli Castro Age: 87 Gender: F : 1935 Exam Date: 08/02/2022 08:26 Exam Location: [facility] Ht (in): 60 Wt (lb): 164 Ordering Physician: Moy Fernandez MD Attending/Referring Phys: Ad Writer Trinidad Tyson RDCS Procedure CPT: Indications: pericardial effusion Cardiac Hx: Technical Quality: Fair Contrast 1: Total Dose (mL): Contrast 2: Total Dose (mL): MEASUREMENTS (Male / Female) Normal Values 2D ECHO LV Diastolic Diameter PLAX 4.1 cm 4.2 - 5.9 / 3.9 - 5.3 cm LV Systolic Diameter PLAX 2.9 cm IVS Diastolic Thickness 1.1 cm 0.6 - 1.0 / 0.6 - 0.9 cm LVPW Diastolic Thickness 1.0 cm 0.6 - 1.0 / 0.6 - 0.9 cm LV Relative Wall Thickness 0.5 RV Internal Dim ED PLAX 2.5 cm LA Systolic Diameter LX 3.1 cm 3.0 - 4.0 / 2.7 - 3.8 cm LA Volume 31.4 cm??? 18 - 58 / 22 - 52 cm??? M-MODE Aortic Root Diameter MM 3.0 cm MV E Point Septal Separation 0.1 cm AV Cusp Separation MM 1.1 cm DOPPLER AV Peak Velocity 185.6 cm/s AV Peak Gradient 13.8 mmHg MV Area PHT 5.3 cm??? MV Deceleration Time 120.1 ms TR Peak Velocity 266.4 cm/s TR Peak Gradient 28.4 mmHg Right Ventricular Systolic Press 43.4 mmHg FINDINGS Left Ventricle Left ventricular ejection fraction is estimated at 55-60%. Left ventricular cavity size normal. Left ventricular wall thickness normal. Right Ventricle Normal right ventricular size and function. Mild pulmonary hypertension. Right Atrium Normal right atrial size. Left Atrium Normal left atrial size. Mitral Valve Mitral annular calcification. No mitral stenosis, regurgitation or prolapse. Aortic Valve Focal thickening of the aortic valve cusps. Tricuspid Valve Mild tricuspid regurgitation. Pulmonic Valve Pulmonic valve not well visualized. Pericardium Normal pericardium. No pericardial effusion. Aorta Normal size aortic root and proximal ascending aorta. CONCLUSIONS Tachycardia noted. Normal LV size and systolic function. Mild mitral annular calcification. Mild mitral and tricuspid insufficiency. No pericardial effusion Previewed by: Dr. Tra Bain MD (Electronically Signed) Final Date: 03 August 2022 09:49
[2022-08-03] MEDS: ENOXAPARIN 30 MG/0.3 ML SYRINGE SQ SCH (09:56)
[2022-08-03] MEDS: CHLORHEXIDINE GLUCONATE 15 ML CUP MUCOUS MEM SCH ×2 (09:56→20:52)
[2022-08-03] MEDS: PIPERACILLIN-TAZOBACTAM 3.375 GM in SODIUM CHLORIDE 0.9% 100 ML IVPB SCH ×2 (09:56→20:52)
--- NOTE | 2022-08-03 11:29 | P.PN ---
Subjective Progress Note Date: 08/03/22 Principal diagnosis: Acute hypoxic respiratory failure, sepsis and septic shock, multisystem organ failure. This is an 87-year-old female patient with a known history of diabetes mellitus, hyperlipidemia, hypertension, osteoarthritis, right sided breast cancer with previous lumpectomy 2. She was recently found to have stage IV adenocarcinoma of the lung following thoracentesis 2. She also had a Pleurx catheter placed to the left chest on 04/06/2022. She did receive some form of treatment in April. She presented to the emergency room yesterday with complaints of nausea and vomiting for 5 days prior. She also was having increasing shortness of breath especially with conversation. Diffuse abdominal discomfort. X-ray revealed a small left pleural effusion and left lower lobe patchy airspace opacity with left chest tube in place. Evidence of COPD. Computed tomography scan of the abdomen and pelvis revealed small volume ascites throughout the abdomen and pelvis. Subtle nodularity and widening of the fissures of the liver with some possible cirrhosis. Distal colonic diverticulosis without diverticulitis. Trace left and small right pleural effusions with by basilar patchy airspace disease. Moderate sized paracardial effusion. If she was admitted to the intensive care unit last evening around 20:55 and was found to be quite hypoxemic with O2 saturation of 76% on 100% FiO2. She was subsequently intubated and placed on mechanical ventilator. Shortly after midnight she developed pulseless electrical activity and received 10 minutes of CPR with 2 A of epinephrine and a total of 6 A of sodium bicarbonate. She did develop return of spontaneous circulation. She is seen this morning in consultation in the ICU. She is currently on the mechanical ventilator at a rate of 28, FiO2 60%, tidal volume 500, PEEP of 10. Peak pressure 37, plateau pressure 32. scale installer blood gases revealed a pO2 of 77, pCO2 31, pH 7.34 on 60% FiO2. And, she is sedated on propofol at 40 mcg/kg/m. Requiring norepinephrine at 0.3 mcg/kg/m which is approximately 21 g. She is receiving D5W with 3 A of bicarb at 150 ML's per hour. She was initiated on vancomycin and Zosyn. She developed multiply system organ failure. Urine output has decreased with only 20 ML's output this morning. Urine and sputum cultures pending. White count 21.1. Hemoglobin 9.9. Platelets 253. Follow-up arterial blood gases revealed a pO2 of 107, pCO2 24, pH 7.53 on 50% FiO2. Lactic acid 12.2. Sodium 137. Potassium 5.3. Bicarb 11. BUN 52. Creatinine 4.13. Glucose 116. AST 6741. ALT 4990. Patient was reevaluated today on 08/03/22, patient remains in the ICU intubated and mechanically ventilated. She is on assist control rate of 20 to tell volume 500 FiO2 50% and PEEP of 8. ABG showed a pO2 of 99 pCO2 24 pH of 7.65. Hence her rate was cut down to 16 FiO2 cut down to 45%. Patient remains on IV fluid at 50 mL/h, she is off bicarb drip, on propofol at 30 mcg/kg/m, and norepinephrine was cut down to 0.1 mcg/kg/m. Patient remains oliguric, and she is being followed by nephrology, may have to consider hemodialysis, but that's yet to be decided by nephrology on the case. Chest x-ray is suggestive of pulmonary edema, underlying pneumonia is not entirely ruled out but felt to be less likely. Sputum cultures are pending urine cultures are negative patient r emains on Zosyn empirically. WBC count today is 20.6, hemoglobin is 12.1. Electrolytes are normal however BUN is 63 creatinine 4.48. Liver profile is quite abnormal with AST up to 12,126 and ALT of 8022, albumin is 2.4. Daughter was brought in to bedside, discussed the clinical status with the daughter, and she is now DO NOT RESUSCITATE, daughter may consider going to comfort care measures she is undecided yet. Objective - Vital Signs Vital signs: Vital Signs Temp 96.4 F L 08/03/22 08:00 Pulse 67 08/03/22 08:00 Resp 16 08/03/22 08:00 BP 127/51 08/03/22 08:00 Pulse Ox 98 08/03/22 08:00 FiO2 45 08/03/22 10:47 Intake & Output 08/02/22 08/03/22 08/03/22 18:59 06:59 18:59 Intake Total 350.085 8893.056 684.032 Output Total 20 15 3 Balance 796.705 1804.056 681.032 Weight 74.4 kg 76.5 kg Intake: IV 280 1375 593 0.9 sodium chloride 130 550 68 pressure bag Calcium Gluconate in NaCl 100 1 gm In Saline 1 100ml. bag @ 100 mls/hr IVPB ONCE ONE Rx#:[id number] Dextrose 5% in Water 1, 150 825 75 000 ml @ 75 mls/hr IV . [id number] ESPINOZA with Sodium Bicarb (1 Meq/ml) 150 ml Rx#:[id number] Potassium Chloride 20 meq 200 In Water For Injection 1 100ml.bag @ 50 mls/hr IVPB Q2H ESPINOZA Rx#: [id number] Sodium Chloride 0.9% 1, 50 000 ml @ 50 mls/hr IV . Q20H ESPINOZA Rx#:[id number] Zosyn 100 Intake, IV Titration 692.236 449.056 91.032 Amount Norepinephrine 4 mg In 575.790 356.783 40.164 Sodium Chloride 0.9% 250 ml @ 0.05 MCG/KG/MIN 12. 097 mls/hr IV .Q21H ESPINOZA Rx#:[id number] propofoL 1,000 mg In 116.446 92.273 50.868 Empty Bag 1 bag @ 5 MCG/ KG/MIN 1.905 mls/hr IV . Q24H ESPINOZA Rx#:[id number] Output: Urine 20 15 3 Other: Voiding Method Indwelling Catheter - Exam GENERAL EXAM: Revealed an 87-year-old female, intubated, sedated, on propofol, not in distress.. HEAD: Normocephalic. Atraumatic. EYES: Patient will, EOMI, nonicteric NOSE: Clear with pink turbinates. THROAT: Endotracheal, gastric tube secured in place No erythema or exudates. NECK: No masses, no JVD. CHEST: No chest wall deformity. LUNGS: Scattered crackles and rhonchi bilaterally. CVS: S1 and S2 normal with no audible murmur, regular rhythm. ABDOMEN: No hepatosplenomegaly, normal bowel sounds, no guarding or rigidity. SKIN: No rashes CENTRAL NERVOUS SYSTEM: Unable to assess, patient is sedated and mechanically ventilated. Psychiatric: Cannot assess. EXTREMITIES: There is no peripheral edema. No clubbing, no cyanosis. Peripheral pulses are intact. - Labs CBC & Chem 7: 08/03/22 04:13 08/03/22 04:13 Labs: Abnormal Lab Results - Last 24 Hours (Table) 08/02/22 08/02/22 08/03/22 Range/Units 11:40 11:53 00:43 WBC (3.8-10.6) k/uL RBC (3.80-5.40) m/uL Neutrophils # (1.3-7.7) k/uL Lymphocytes # (1.0-4.8) k/uL ABG pH (7.35-7.45) ABG pCO2 (35-45) mmHg ABG HCO3 (21-25) mmol/L ABG Total CO2 (19-24) mmol/L ABG O2 Saturation (94-97) % Sodium (137-145) mmol/L Chloride (98-107) mmol/L BUN (7-17) mg/dL Creatinine (0.52-1.04) mg/dL Glucose (74-99) mg/dL POC Glucose (mg/dL) 236 H 144 H (70-110) mg/dL Plasma Lactic Acid Wesly 11.6 H* (0.7-2.0) mmol/L Calcium (8.4-10.2) mg/dL Phosphorus (2.5-4.5) mg/dL Total Bilirubin (0.2-1.3) mg/dL AST (14-36) U/L ALT (4-34) U/L Total Protein (6.3-8.2) g/dL Albumin (3.5-5.0) g/dL 08/03/22 08/03/22 08/03/22 Range/Units 04:13 04:13 05:20 WBC 20.6 H (3.8-10.6) k/uL RBC 3.79 L (3.80-5.40) m/uL Neutrophils # 18.8 H (1.3-7.7) k/uL Lymphocytes # 0.8 L (1.0-4.8) k/uL ABG pH 7.65 H* (7.35-7.45) ABG pCO2 24 L (35-45) mmHg ABG HCO3 27 H (21-25) mmol/L ABG Total CO2 28 H (19-24) mmol/L ABG O2 Saturation 98.0 H (94-97) % Sodium 135 L (137-145) mmol/L Chloride 91 L (98-107) mmol/L BUN 63 H (7-17) mg/dL Creatinine 4.48 H (0.52-1.04) mg/dL Glucose 139 H (74-99) mg/dL POC Glucose (mg/dL) (70-110) mg/dL Plasma Lactic Acid Wesly (0.7-2.0) mmol/L Calcium 6.3 L* (8.4-10.2) mg/dL Phosphorus 4.8 H (2.5-4.5) mg/dL Total Bilirubin 1.4 H (0.2-1.3) mg/dL AST 16981 H (14-36) U/L ALT 8022 H (4-34) U/L Total Protein 4.4 L (6.3-8.2) g/dL Albumin 2.4 L (3.5-5.0) g/dL 08/03/22 Range/Units 06:29 WBC (3.8-10.6) k/uL RBC (3.80-5.40) m/uL Neutrophils # (1.3-7.7) k/uL Lymphocytes # (1.0-4.8) k/uL ABG pH (7.35-7.45) ABG pCO2 (35-45) mmHg ABG HCO3 (21-25) mmol/L ABG Total CO2 (19-24) mmol/L ABG O2 Saturation (94-97) % Sodium (137-145) mmol/L Chloride (98-107) mmol/L BUN (7-17) mg/dL Creatinine (0.52-1.04) mg/dL Glucose (74-99) mg/dL POC Glucose (mg/dL) 157 H (70-110) mg/dL Plasma Lactic Acid Wesly (0.7-2.0) mmol/L Calcium (8.4-10.2) mg/dL Phosphorus (2.5-4.5) mg/dL Total Bilirubin (0.2-1.3) mg/dL AST (14-36) U/L ALT (4-34) U/L Total Protein (6.3-8.2) g/dL Albumin (3.5-5.0) g/dL Microbiology - Last 24 Hours (Table) 08/02/22 03:12 Gram Stain - Preliminary Sputum Sputum Culture - Preliminary 08/01/22 14:54 Urine Culture - Final Urine,Catheterized Assessment and Plan Assessment: Impression: Acute on chronic hypoxic respiratory failure secondary to sepsis, septic shock, ARDS, possible pneumonia. Underlying COPD Acute cardiac arrest requiring 10 minutes of CPR until the return of spontaneous circulation. Initial presentation of abdominal pain with nausea and vomiting of 5 day duration. Multi system organ failure. Secondary to above. Shocked liver. 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 Hypertension. History of breast cancer and previous lumpectomy/right breast Chronic hypoxic respiratory failure, maintained on 3 L nasal cannula outpatient basis. Recommendation: Continue ventilatory support. Continue hemodynamic support, patient is on small dose of norepinephrine Nutritional support/enteral feeding GI and DVT prophylaxis. Nephrology to see for possible hemodialysis. Continue empiric antibiotics. Vancomycin and Zosyn. Stop a bicarb drip. Continue updrafts/DuoNeb. Trial of Lasix 80 mg IV push. May have to consider hemodialysis. Continue DO NOT RESUSCITATE CODE STATUS, Discussed with the daughter the option of comfort care measures and she is thinking about it. Patient is critically ill. Critical care time is over 30 minutes. Time with Patient: Greater than 30
--- NOTE | 2022-08-03 12:24 | P.HPIM ---
History of Present Illness H&P Date: 08/02/22 Holli Castro, is an 87-year-old female who presented to [facility] emergency room with a chief complaint of nausea and vomiting for the last 5 days She was evaluated in the emergency room vital examination on presentation revealed a temperature of 97.2 pulse 73 respiration 16 blood pressure 72/54 pulse ox 90% on room air Laboratory data reveals a white blood count of 17.8 hemoglobin 14.3 platelet count 455 sodium 1:30 potassium 5.6 chloride 87 CO2 19 BUN 53 creatinine 3.84 ALT was elevated at 369 AST at 442 troponin level normal, urine analysis revealed evidence of urinary tract infection Testing in the emergency room revealed computed tomography scan of the abdomen and pelvis done in the emergency room revealed small volume ascites throughout the abdomen liver nodularity distal colonic diverticulosis without evidence of diverticulitis trace bilateral small pleural effusion and moderate size pericardial effusion, EKG revealing sinus rhythm with QRS voltage in the pre cordial leads, with possible lateral ischemia Patient was admitted to medical floor for further evaluation and treatment Past Medical History Past Medical History: Cancer, COPD, Diabetes Mellitus, Hyperlipidemia, Hypertension, Osteoarthritis (OA), Pneumonia Additional Past Medical History / Comment(s): HX PNEUMONIA X6, RIGHT BREAST CANCER AT 80 YRS OLD., PLEURAL EFFUSION WITH THORACENTESIS X 2., OXYGEN AT 3 L CONTINUOUS., NEW DIAGNOSIS OF LUNG CANCER. History of Any Multi-Drug Resistant Organisms: None Reported Past Surgical History: Appendectomy, Breast Surgery, Cholecystectomy, Hysterectomy (Partial hysterectomy), Tonsillectomy Additional Past Surgical History / Comment(s): RT BREAST BX.. Right breast lumpectomy X2, thoracentesis 03/11/22 & 03/28/22 Past Anesthesia/Blood Transfusion Reactions: No Reported Reaction Past Psychological History: No Psychological Hx Reported Smoking Status: Former smoker Past Alcohol Use History: None Reported Past Drug Use History: None Reported - Past Family History Father Family Medical History: Coronary Artery Disease (CAD), Myocardial Infarction (NH) Additional Family Medical History / Comment(s): EtOH abuse Sister(s) Family Medical History: Cancer Additional Family Medical History / Comment(s): OVARIAN CA Brother(s) Family Medical History: Cancer Additional Family Medical History / Comment(s): BROTHER #1 KIDNEY CA. BROTHER #2 PROSTATE CA Daughter(s) Family Medical History: Cancer Additional Family Medical History / Comment(s): OVARIAN CANCER, breast cancer Mother Family Medical History: Coronary Artery Disease (CAD), Diabetes Mellitus, Myocardial Infarction (NH) Medications and Allergies Home Medications Medication Instructions Recorded Confirmed Type Aspirin EC [Ecotrin Low Dose] 81 mg PO DAILY 08/17/15 08/01/22 History Lisinopril-Hctz 20-25 mg 1 tab PO DAILY 08/17/15 08/01/22 History [Zestoretic 20-25] Multivitamins, Thera [Multivitamin 1 tab PO DAILY 08/17/15 08/01/22 History (formulary)] amLODIPine [Norvasc] 5 mg PO HS 08/17/15 08/01/22 History Ascorbic Acid [Vitamin C] 500 mg PO DAILY 03/10/22 08/01/22 History Simvastatin [Zocor] 2.5 mg PO HS 04/05/22 08/01/22 History Vitamin C/Biotin [Hair, Skin and 1 tab PO DAILY 08/01/22 08/01/22 History Nails Chew] Allergies Allergy/AdvReac Type Severity Reaction Status Date / Time methylprednisolone Allergy Unknown Rash/Hives Verified 08/01/22 14:01 [From Medrol] Physical Exam Vitals: Vital Signs Temp Pulse Pulse Resp BP BP Pulse Ox 08/02/22 09:06 08/02/22 08:11 08/02/22 08:10 08/02/22 07:55 114 H 23 115/71 99 08/02/22 07:50 120 H 28 H 117/69 100 08/02/22 07:45 112 H 28 H 125/75 100 08/02/22 07:40 116 H 28 H 125/75 100 08/02/22 07:35 118 H 28 H 82/55 100 08/02/22 07:30 120 H 28 H 109/66 99 08/02/22 07:25 112 H 28 H 110/68 99 08/02/22 07:20 129 H 28 H 91/60 98 08/02/22 07:15 19 68/55 81 L 08/02/22 07:10 113 H 13 91/63 99 08/02/22 07:05 128 H 14 105/70 95 08/02/22 07:00 102 H 28 H 120/78 100 08/02/22 06:55 121 H 28 H 121/71 99 08/02/22 06:50 130 H 28 H 124/80 97 08/02/22 06:45 115 H 28 H 123/77 100 08/02/22 06:40 120 H 28 H 125/79 99 08/02/22 06:35 117 H 28 H 120/79 100 08/02/22 06:30 120 H 28 H 130/78 99 08/02/22 06:25 122 H 28 H 116/77 99 08/02/22 06:20 109 H 28 H 121/71 96 08/02/22 06:15 122 H 28 H 123/78 100 08/02/22 06:10 122 H 28 H 119/70 95 08/02/22 06:05 112 H 28 H 111/72 98 08/02/22 06:00 104 H 28 H 116/79 98 08/02/22 05:55 94 28 H 115/75 97 08/02/22 05:50 101 H 28 H 117/93 97 08/02/22 05:45 102 H 28 H 114/67 96 08/02/22 05:40 102 H 28 H 99/62 97 08/02/22 05:35 113 H 28 H 106/60 97 08/02/22 05:30 102 H 28 H 106/59 97 08/02/22 05:25 94 28 H 135/73 97 08/02/22 05:20 100 28 H 118/81 95 08/02/22 05:15 108 H 31 H 119/73 97 08/02/22 05:10 101 H 28 H 134/70 88 L 08/02/22 05:05 94 28 H 118/77 95 08/02/22 05:00 96 28 H 123/69 94 L 08/02/22 04:55 96 28 H 122/71 96 08/02/22 04:50 95 28 H 109/75 98 08/02/22 04:45 128 H 28 H 113/80 100 08/02/22 04:40 128 H 28 H 112/68 97 08/02/22 04:35 125 H 28 H 116/62 97 08/02/22 04:30 113 H 28 H 112/76 96 08/02/22 04:25 117 H 28 H 107/85 99 08/02/22 04:20 138 H 28 H 106/72 99 08/02/22 04:15 122 H 28 H 109/66 99 08/02/22 04:10 116 H 29 H 109/66 99 08/02/22 04:05 129 H 29 H 97/68 97 08/02/22 04:01 08/02/22 04:00 96.2 F L 131 H 28 H 99 08/02/22 03:55 117 H 28 H 105/67 99 08/02/22 03:50 124 H 24 115/64 97 08/02/22 03:45 116 H 28 H 114/73 95 08/02/22 03:40 109 H 28 H 101/70 98 08/02/22 03:35 118 H 28 H 96/58 100 08/02/22 03:30 128 H 28 H 95/56 99 08/02/22 03:25 120 H 28 H 81/59 96 08/02/22 03:20 122 H 31 H 96/72 100 08/02/22 03:15 113 H 32 H 104/63 94 L 08/02/22 03:10 125 H 30 H 96/62 96 08/02/22 03:05 120 H 28 H 97/71 92 L 08/02/22 03:00 137 H 28 H 91/58 100 08/02/22 02:55 131 H 28 H 89/59 100 08/02/22 02:50 124 H 30 H 102/52 91 L 08/02/22 02:45 116 H 24 97/76 83 L 08/02/22 02:40 122 H 28 H 97/76 90 L 08/02/22 02:35 30 H 84/59 85 L 08/02/22 02:30 114 H 28 H 84/59 99 08/02/22 02:25 129 H 28 H 85/55 100 08/02/22 02:20 112 H 28 H 84/54 99 08/02/22 02:15 115 H 28 H 95/85 82 L 08/02/22 02:10 114 H 28 H 79/48 96 08/02/22 02:05 110 H 29 H 73/54 100 08/02/22 02:00 115 H 28 H 77/50 98 08/02/22 01:55 128 H 29 H 69/47 98 08/02/22 01:50 118 H 28 H 69/46 99 08/02/22 01:45 116 H 28 H 72/29 100 08/02/22 01:40 120 H 29 H 96/83 08/02/22 01:35 106 H 30 H 96/83 08/02/22 01:30 95.9 F L 125 H 28 H 59/35 08/02/22 01:25 125 H 28 H 71/34 08/02/22 01:20 146 H 28 H 109/95 08/02/22 01:15 117 H 28 H 167/149 08/02/22 01:10 130 H 28 H 107/45 08/02/22 01:05 137 H 28 H 66/47 08/02/22 01:00 147 H 28 H 74/47 08/02/22 00:55 156 H 28 H 105/63 08/02/22 00:50 135 H 27 H 136/75 08/02/22 00:45 130 H 28 H 194/89 08/02/22 00:40 112 H 28 H 202/111 08/02/22 00:35 22 08/02/22 00:30 20 08/02/22 00:25 54 L 28 H 08/02/22 00:20 83 34 H 63/42 08/02/22 00:15 87 34 H 63/45 08/02/22 00:10 94 34 H 145/112 08/02/22 00:05 90 32 H 148/51 08/02/22 00:00 83 31 H 08/01/22 23:55 86 34 H 120/84 08/01/22 23:50 88 28 H 84/38 08/01/22 23:45 88 28 H 84/38 08/01/22 23:40 90 22 08/01/22 23:35 91 28 H 08/01/22 23:30 89 28 H 108/66 08/01/22 23:25 85 28 H 87/52 08/01/22 23:23 08/01/22 23:20 109 H 7 L 145/55 08/01/22 23:15 90 38 H 51/26 79 L 08/01/22 23:10 100 30 H 91/56 77 L 08/01/22 22:45 113 H 32 H 154/70 88 L 08/01/22 22:37 08/01/22 21:48 97.3 F L 84 20 93/65 94 L 08/01/22 20:00 97.5 F L 82 24 80/65 96 08/01/22 19:00 94.2 F L 85 75/63 08/01/22 15:27 89 18 101/74 97 08/01/22 14:30 92 18 92/78 96 08/01/22 13:25 92 18 96/70 96 08/01/22 12:12 97.2 F L 73 16 72/54 90 L FiO2 08/02/22 09:06 50 08/02/22 08:11 60 08/02/22 08:10 60 08/02/22 07:55 08/02/22 07:50 08/02/22 07:45 08/02/22 07:40 08/02/22 07:35 08/02/22 07:30 08/02/22 07:25 08/02/22 07:20 08/02/22 07:15 08/02/22 07:10 08/02/22 07:05 08/02/22 07:00 08/02/22 06:55 08/02/22 06:50 08/02/22 06:45 60 08/02/22 06:40 60 08/02/22 06:35 60 08/02/22 06:30 60 08/02/22 06:25 60 08/02/22 06:20 60 08/02/22 06:15 60 08/02/22 06:10 60 08/02/22 06:05 60 08/02/22 06:00 60 08/02/22 05:55 60 08/02/22 05:50 60 08/02/22 05:45 60 08/02/22 05:40 60 08/02/22 05:35 60 08/02/22 05:30 60 08/02/22 05:25 60 08/02/22 05:20 60 08/02/22 05:15 60 08/02/22 05:10 60 08/02/22 05:05 60 08/02/22 05:00 60 08/02/22 04:55 60 08/02/22 04:50 60 08/02/22 04:45 60 08/02/22 04:40 60 08/02/22 04:35 60 08/02/22 04:30 60 08/02/22 04:25 60 08/02/22 04:20 60 08/02/22 04:15 60 08/02/22 04:10 60 08/02/22 04:05 60 08/02/22 04:01 60 08/02/22 04:00 60 08/02/22 03:55 70 08/02/22 03:50 08/02/22 03:45 70 08/02/22 03:40 70 08/02/22 03:35 70 08/02/22 03:30 70 08/02/22 03:25 70 08/02/22 03:20 70 08/02/22 03:15 70 08/02/22 03:10 70 08/02/22 03:05 70 08/02/22 03:00 70 08/02/22 02:55 70 08/02/22 02:50 70 08/02/22 02:45 08/02/22 02:40 08/02/22 02:35 70 08/02/22 02:30 08/02/22 02:25 08/02/22 02:20 08/02/22 02:15 08/02/22 02:10 08/02/22 02:05 70 08/02/22 02:00 70 08/02/22 01:55 70 08/02/22 01:50 70 08/02/22 01:45 70 08/02/22 01:40 70 08/02/22 01:35 70 08/02/22 01:30 70 08/02/22 01:25 70 08/02/22 01:20 70 08/02/22 01:15 70 08/02/22 01:10 70 08/02/22 01:05 70 08/02/22 01:00 70 08/02/22 00:55 70 08/02/22 00:50 70 08/02/22 00:45 70 08/02/22 00:40 08/02/22 00:35 08/02/22 00:30 08/02/22 00:25 70 08/02/22 00:20 100 08/02/22 00:15 08/02/22 00:10 08/02/22 00:05 08/02/22 00:00 08/01/22 23:55 08/01/22 23:50 08/01/22 23:45 08/01/22 23:40 100 08/01/22 23:35 100 08/01/22 23:30 100 08/01/22 23:25 100 08/01/22 23:23 100 08/01/22 23:20 100 08/01/22 23:15 08/01/22 23:10 08/01/22 22:45 08/01/22 22:37 100 08/01/22 21:48 08/01/22 20:00 08/01/22 19:00 08/01/22 15:27 08/01/22 14:30 08/01/22 13:25 08/01/22 12:12 Intake and Output 08/01/22 08/02/22 08/02/22 22:59 06:59 14:59 Intake Total 2155.586 481.492 Output Total 0 20 Balance 2155.586 461.492 Intake: IV 2060 280 0.9 NaCl- 910 130 Dextrose 5% in Water 1, 1050 150 000 ml @ 150 mls/hr IV . Q7H40M ESPINOZA with Sodium Bicarb (1 Meq/ml) 150 ml Rx#:[id number] Zosyn 100 Intake, IV Titration 95.586 201.492 Amount Norepinephrine 4 mg In 68.954 185.046 Sodium Chloride 0.9% 250 ml @ 0.05 MCG/KG/MIN 12. 097 mls/hr IV .Q21H ESPINOZA Rx#:[id number] propofoL 1,000 mg In 26.632 16.446 Empty Bag 1 bag @ 5 MCG/ KG/MIN 1.905 mls/hr IV . Q24H ESPINOZA Rx#:[id number] Output: Urine 0 20 Other: Voiding Method Indwelling Catheter Weight 74.4 kg In general patient is intubated, sedated, maintained on mechanical ventilation. HEENT head normocephalic and atraumatic Neck is supple no JVD no goiter no lymphadenopathy no carotid bruit Chest examination is clear to auscultation no crackles no wheezing Cardiac exam reveals regular heart sounds S1 and S2 no gallops no murmurs Abdomen is soft nontender no organomegaly with normal bowel sounds Extremity exam reveals no edema no cyanosis or clubbing Neurological examination reveals no gross focal deficits Results CBC & Chem 7: 08/03/22 04:13 08/03/22 04:13 Labs: Abnormal Lab Results - Last 24 Hours (Table) 08/01/22 08/01/22 08/01/22 Range/Units 12:36 12:36 12:36 WBC 17.8 H (3.8-10.6) k/uL RBC (3.80-5.40) m/uL MCV (80.0-100.0) fL Plt Count 455 H (150-450) k/uL Neutrophils # 14.4 H (1.3-7.7) k/uL Lymphocytes # (1.0-4.8) k/uL Monocytes # 1.1 H (0-1.0) k/uL APTT 21.6 L (22.0-30.0) sec ABG pH (7.35-7.45) ABG pCO2 (35-45) mmHg ABG pO2 (83-108) mmHg ABG HCO3 (21-25) mmol/L ABG Total CO2 (19-24) mmol/L ABG O2 Saturation (94-97) % Hemoglobin (11.4-16.0) gm/dL Sodium 130 L (137-145) mmol/L Potassium 5.6 H (3.5-5.1) mmol/L Chloride 87 L (98-107) mmol/L Carbon Dioxide 19 L (22-30) mmol/L BUN 53 H (7-17) mg/dL Creatinine 3.84 H (0.52-1.04) mg/dL Glucose 182 H (74-99) mg/dL POC Glucose (mg/dL) (70-110) mg/dL Plasma Lactic Acid Wesly (0.7-2.0) mmol/L Calcium (8.4-10.2) mg/dL Phosphorus (2.5-4.5) mg/dL Total Bilirubin (0.2-1.3) mg/dL AST 442 H (14-36) U/L ALT 369 H (4-34) U/L Alkaline Phosphatase (38-126) U/L Total Protein (6.3-8.2) g/dL Albumin (3.5-5.0) g/dL Urine Appearance (Clear) Urine Protein (Negative) Urine Glucose (UA) (Negative) Urine Ketones (Negative) Urine Blood (Negative) Urine Bilirubin (Negative) Ur Leukocyte Esterase (Negative) Urine RBC (0-5) /hpf Urine WBC (0-5) /hpf Ur Squamous Epith Cells (0-4) /hpf Hyaline Casts (0-2) /lpf Urine Mucus (None) /hpf 08/01/22 08/01/22 08/01/22 Range/Units 12:36 14:54 17:34 WBC (3.8-10.6) k/uL RBC (3.80-5.40) m/uL MCV (80.0-100.0) fL Plt Count (150-450) k/uL Neutrophils # (1.3-7.7) k/uL Lymphocytes # (1.0-4.8) k/uL Monocytes # (0-1.0) k/uL APTT (22.0-30.0) sec ABG pH (7.35-7.45) ABG pCO2 (35-45) mmHg ABG pO2 (83-108) mmHg ABG HCO3 (21-25) mmol/L ABG Total CO2 (19-24) mmol/L ABG O2 Saturation (94-97) % Hemoglobin (11.4-16.0) gm/dL Sodium (137-145) mmol/L Potassium (3.5-5.1) mmol/L Chloride (98-107) mmol/L Carbon Dioxide (22-30) mmol/L BUN (7-17) mg/dL Creatinine (0.52-1.04) mg/dL Glucose (74-99) mg/dL POC Glucose (mg/dL) (70-110) mg/dL Plasma Lactic Acid Wesly 7.1 H* 8.8 H* (0.7-2.0) mmol/L Calcium (8.4-10.2) mg/dL Phosphorus (2.5-4.5) mg/dL Total Bilirubin (0.2-1.3) mg/dL AST (14-36) U/L ALT (4-34) U/L Alkaline Phosphatase (38-126) U/L Total Protein (6.3-8.2) g/dL Albumin (3.5-5.0) g/dL Urine Appearance Turbid H (Clear) Urine Protein 2+ H (Negative) Urine Glucose (UA) 1+ H (Negative) Urine Ketones Trace H (Negative) Urine Blood Trace H (Negative) Urine Bilirubin 1+ H (Negative) Ur Leukocyte Esterase Large H (Negative) Urine RBC 7 H (0-5) /hpf Urine WBC 28 H (0-5) /hpf Ur Squamous Epith Cells 7 H (0-4) /hpf Hyaline Casts 20 H (0-2) /lpf Urine Mucus Rare H (None) /hpf 08/01/22 08/01/22 08/02/22 Range/Units 23:07 23:07 00:00 WBC (3.8-10.6) k/uL RBC (3.80-5.40) m/uL MCV (80.0-100.0) fL Plt Count (150-450) k/uL Neutrophils # (1.3-7.7) k/uL Lymphocytes # (1.0-4.8) k/uL Monocytes # (0-1.0) k/uL APTT (22.0-30.0) sec ABG pH 6.98 L* (7.35-7.45) ABG pCO2 21 L (35-45) mmHg ABG pO2 293 H (83-108) mmHg ABG HCO3 5 L* (21-25) mmol/L ABG Total CO2 6 L (19-24) mmol/L ABG O2 Saturation 99.0 H (94-97) % Hemoglobin (11.4-16.0) gm/dL Sodium (137-145) mmol/L Potassium (3.5-5.1) mmol/L Chloride (98-107) mmol/L Carbon Dioxide (22-30) mmol/L BUN (7-17) mg/dL Creatinine (0.52-1.04) mg/dL Glucose (74-99) mg/dL POC Glucose (mg/dL) 162 H (70-110) mg/dL Plasma Lactic Acid Wesly 15.3 H* (0.7-2.0) mmol/L Calcium (8.4-10.2) mg/dL Phosphorus (2.5-4.5) mg/dL Total Bilirubin (0.2-1.3) mg/dL AST (14-36) U/L ALT (4-34) U/L Alkaline Phosphatase (38-126) U/L Total Protein (6.3-8.2) g/dL Albumin (3.5-5.0) g/dL Urine Appearance (Clear) Urine Protein (Negative) Urine Glucose (UA) (Negative) Urine Ketones (Negative) Urine Blood (Negative) Urine Bilirubin (Negative) Ur Leukocyte Esterase (Negative) Urine RBC (0-5) /hpf Urine WBC (0-5) /hpf Ur Squamous Epith Cells (0-4) /hpf Hyaline Casts (0-2) /lpf Urine Mucus (None) /hpf 08/02/22 08/02/22 08/02/22 Range/Units 00:44 05:01 05:48 WBC 27.2 H (3.8-10.6) k/uL RBC 3.79 L (3.80-5.40) m/uL MCV 100.9 H (80.0-100.0) fL Plt Count (150-450) k/uL Neutrophils # 24.7 H (1.3-7.7) k/uL Lymphocytes # 0.9 L (1.0-4.8) k/uL Monocytes # 1.2 H (0-1.0) k/uL APTT (22.0-30.0) sec ABG pH (7.35-7.45) ABG pCO2 (35-45) mmHg ABG pO2 (83-108) mmHg ABG HCO3 (21-25) mmol/L ABG Total CO2 (19-24) mmol/L ABG O2 Saturation (94-97) % Hemoglobin (11.4-16.0) gm/dL Sodium (137-145) mmol/L Potassium 5.3 H (3.5-5.1) mmol/L Chloride 94 L (98-107) mmol/L Carbon Dioxide 11 L (22-30) mmol/L BUN 52 H (7-17) mg/dL Creatinine 4.13 H (0.52-1.04) mg/dL Glucose 116 H (74-99) mg/dL POC Glucose (mg/dL) 125 H (70-110) mg/dL Plasma Lactic Acid Wesly (0.7-2.0) mmol/L Calcium 7.6 L (8.4-10.2) mg/dL Phosphorus 12.3 H* (2.5-4.5) mg/dL Total Bilirubin 1.8 H (0.2-1.3) mg/dL AST 6741 H (14-36) U/L ALT 4990 H (4-34) U/L Alkaline Phosphatase <20 L (38-126) U/L Total Protein 5.7 L (6.3-8.2) g/dL Albumin 3.0 L (3.5-5.0) g/dL Urine Appearance (Clear) Urine Protein (Negative) Urine Glucose (UA) (Negative) Urine Ketones (Negative) Urine Blood (Negative) Urine Bilirubin (Negative) Ur Leukocyte Esterase (Negative) Urine RBC (0-5) /hpf Urine WBC (0-5) /hpf Ur Squamous Epith Cells (0-4) /hpf Hyaline Casts (0-2) /lpf Urine Mucus (None) /hpf 08/02/22 08/02/22 08/02/22 Range/Units 05:48 06:07 07:46 WBC (3.8-10.6) k/uL RBC (3.80-5.40) m/uL MCV (80.0-100.0) fL Plt Count (150-450) k/uL Neutrophils # (1.3-7.7) k/uL Lymphocytes # (1.0-4.8) k/uL Monocytes # (0-1.0) k/uL APTT (22.0-30.0) sec ABG pH 7.34 L (7.35-7.45) ABG pCO2 31 L (35-45) mmHg ABG pO2 77 L (83-108) mmHg ABG HCO3 17 L (21-25) mmol/L ABG Total CO2 18 L (19-24) mmol/L ABG O2 Saturation 93.8 L (94-97) % Hemoglobin 11.1 L (11.4-16.0) gm/dL Sodium (137-145) mmol/L Potassium (3.5-5.1) mmol/L Chloride (98-107) mmol/L Carbon Dioxide (22-30) mmol/L BUN (7-17) mg/dL Creatinine (0.52-1.04) mg/dL Glucose (74-99) mg/dL POC Glucose (mg/dL) 219 H (70-110) mg/dL Plasma Lactic Acid Wesly 17.5 H* (0.7-2.0) mmol/L Calcium (8.4-10.2) mg/dL Phosphorus (2.5-4.5) mg/dL Total Bilirubin (0.2-1.3) mg/dL AST (14-36) U/L ALT (4-34) U/L Alkaline Phosphatase (38-126) U/L Total Protein (6.3-8.2) g/dL Albumin (3.5-5.0) g/dL Urine Appearance (Clear) Urine Protein (Negative) Urine Glucose (UA) (Negative) Urine Ketones (Negative) Urine Blood (Negative) Urine Bilirubin (Negative) Ur Leukocyte Esterase (Negative) Urine RBC (0-5) /hpf Urine WBC (0-5) /hpf Ur Squamous Epith Cells (0-4) /hpf Hyaline Casts (0-2) /lpf Urine Mucus (None) /hpf 08/02/22 Range/Units 09:52 WBC (3.8-10.6) k/uL RBC (3.80-5.40) m/uL MCV (80.0-100.0) fL Plt Count (150-450) k/uL Neutrophils # (1.3-7.7) k/uL Lymphocytes # (1.0-4.8) k/uL Monocytes # (0-1.0) k/uL APTT (22.0-30.0) sec ABG pH 7.53 H (7.35-7.45) ABG pCO2 24 L (35-45) mmHg ABG pO2 (83-108) mmHg ABG HCO3 20 L (21-25) mmol/L ABG Total CO2 (19-24) mmol/L ABG O2 Saturation 98.7 H (94-97) % Hemoglobin 11.2 L (11.4-16.0) gm/dL Sodium (137-145) mmol/L Potassium (3.5-5.1) mmol/L Chloride (98-107) mmol/L Carbon Dioxide (22-30) mmol/L BUN (7-17) mg/dL Creatinine (0.52-1.04) mg/dL Glucose (74-99) mg/dL POC Glucose (mg/dL) (70-110) mg/dL Plasma Lactic Acid Wesly (0.7-2.0) mmol/L Calcium (8.4-10.2) mg/dL Phosphorus (2.5-4.5) mg/dL Total Bilirubin (0.2-1.3) mg/dL AST (14-36) U/L ALT (4-34) U/L Alkaline Phosphatase (38-126) U/L Total Protein (6.3-8.2) g/dL Albumin (3.5-5.0) g/dL Urine Appearance (Clear) Urine Protein (Negative) Urine Glucose (UA) (Negative) Urine Ketones (Negative) Urine Blood (Negative) Urine Bilirubin (Negative) Ur Leukocyte Esterase (Negative) Urine RBC (0-5) /hpf Urine WBC (0-5) /hpf Ur Squamous Epith Cells (0-4) /hpf Hyaline Casts (0-2) /lpf Urine Mucus (None) /hpf Microbiology - Last 24 Hours (Table) 08/02/22 03:12 Sputum Culture - Preliminary Sputum 08/01/22 14:54 Urine Culture - Preliminary Urine,Catheterized Assessment and Plan Plan: Gastroenteritis with nausea and vomiting for the last 5 days Urinary tract infection Sepsis as evidenced by leukocytosis, hypotension, and elevated lactic acid Acute hypoxic respiratory failure requiring intubation and mechanical ventilation Severe lactic acidosis Severe dehydration with acute kidney failure, kidney function was normal in March 2022 with a creatinine of 0.71 Elevated liver enzymes, likely related to hypotension with hypoxic liver injury, however possibility of metastatic disease to the liver cannot be ruled out at this time Underlying history of breast cancer Underlying history of recurrent pleural effusion Nodularity in the liver on computed tomography scan with elevated AST and ALT At this time patient is admitted to ICU she is intubated sedated maintained on mechanical ventilation She was started on IV antibiotics Pulmonary critical care, cardiology and nephrology following Prognosis is guarded will follow
--- NOTE | 2022-08-03 13:15 | P.PN ---
Subjective Progress Note Date: 08/03/22 Holli Castro, is an 87-year-old female who presented to [facility] emergency room with a chief complaint of nausea and vomiting for the last 5 days She was evaluated in the emergency room vital examination on presentation revealed a temperature of 97.2 pulse 73 respiration 16 blood pressure 72/54 pulse ox 90% on room air Laboratory data reveals a white blood count of 17.8 hemoglobin 14.3 platelet count 455 sodium 1:30 potassium 5.6 chloride 87 CO2 19 BUN 53 creatinine 3.84 ALT was elevated at 369 AST at 442 troponin level normal, urine analysis revealed evidence of urinary tract infection Testing in the emergency room revealed computed tomography scan of the abdomen and pelvis done in the emergency room revealed small volume ascites throughout the abdomen liver nodularity distal colonic diverticulosis without evidence of diverticulitis trace bilateral small pleural effusion and moderate size pericardial effusion, EKG revealing sinus rhythm with QRS voltage in the precordial leads, with possible lateral ischemia Patient was admitted to medical floor for further evaluation and treatment On 08/03/2022 patient was seen and examined in the ICU she is intubated sedated maintained on mechanical ventilation, at this time family is trying to decide whether they want to proceed with comfort care only and hospice care, her kidney function remains marginal with a BUN of 63 and creatinine of 4.48 she has minimal urine output she was evaluated by nephrology and she is not a candidate for dialysis. We will continue to follow closely Objective - Vital Signs Vital signs: Vital Signs Temp 96.4 F L 08/03/22 08:00 Pulse 67 08/03/22 08:00 Resp 16 08/03/22 08:00 BP 127/51 08/03/22 08:00 Pulse Ox 98 08/03/22 08:00 FiO2 45 08/03/22 10:47 Intake & Output 08/02/22 08/03/22 08/03/22 18:59 06:59 18:59 Intake Total 667.083 2720.056 684.032 Output Total 20 15 3 Balance 561.163 4568.056 681.032 Weight 74.4 kg 76.5 kg Intake: IV 280 1375 593 0.9 sodium chloride 130 550 68 pressure bag Calcium Gluconate in NaCl 100 1 gm In Saline 1 100ml. bag @ 100 mls/hr IVPB ONCE ONE Rx#:[id number] Dextrose 5% in Water 1, 150 825 75 000 ml @ 75 mls/hr IV . [id number] [facility] with Sodium Bicarb (1 Meq/ml) 150 ml Rx#:[id number] Potassium Chloride 20 meq 200 In Water For Injection 1 100ml.bag @ 50 mls/hr IVPB Q2H [facility] Rx#: [id number] Sodium Chloride 0.9% 1, 50 000 ml @ 50 mls/hr IV . Q20H [facility] Rx#:[id number] Zosyn 100 Intake, IV Titration 692.236 449.056 91.032 Amount Norepinephrine 4 mg In 575.790 356.783 40.164 Sodium Chloride 0.9% 250 ml @ 0.05 MCG/KG/MIN 12. 097 mls/hr IV .Q21H [facility] Rx#:[id number] propofoL 1,000 mg In 116.446 92.273 50.868 Empty Bag 1 bag @ 5 MCG/ KG/MIN 1.905 mls/hr IV . Q24H [facility] Rx#:[id number] Output: Urine 20 15 3 Other: Voiding Method Indwelling Catheter Indwelling Catheter - Exam In general patient is intubated, sedated, maintained on mechanical ventilation. HEENT head normocephalic and atraumatic Neck is supple no JVD no goiter no lymphadenopathy no carotid bruit Chest examination is clear to auscultation no crackles no wheezing Cardiac exam reveals regular heart sounds S1 and S2 no gallops no murmurs Abdomen is soft nontender no organomegaly with normal bowel sounds Extremity exam reveals no edema no cyanosis or clubbing Neurological examination reveals no gross focal deficits - Labs CBC & Chem 7: 08/03/22 04:13 08/03/22 04:13 Labs: Abnormal Lab Results - Last 24 Hours (Table) 08/02/22 08/03/22 08/03/22 Range/Units 11:53 00:43 04:13 WBC 20.6 H (3.8-10.6) k/uL RBC 3.79 L (3.80-5.40) m/uL Neutrophils # 18.8 H (1.3-7.7) k/uL Lymphocytes # 0.8 L (1.0-4.8) k/uL ABG pH (7.35-7.45) ABG pCO2 (35-45) mmHg ABG HCO3 (21-25) mmol/L ABG Total CO2 (19-24) mmol/L ABG O2 Saturation (94-97) % Sodium (137-145) mmol/L Chloride (98-107) mmol/L BUN (7-17) mg/dL Creatinine (0.52-1.04) mg/dL Glucose (74-99) mg/dL POC Glucose (mg/dL) 144 H (70-110) mg/dL Plasma Lactic Acid Wesly 11.6 H* (0.7-2.0) mmol/L Calcium (8.4-10.2) mg/dL Phosphorus (2.5-4.5) mg/dL Total Bilirubin (0.2-1.3) mg/dL AST (14-36) U/L ALT (4-34) U/L Total Protein (6.3-8.2) g/dL Albumin (3.5-5.0) g/dL 08/03/22 08/03/22 08/03/22 Range/Units 04:13 05:20 06:29 WBC (3.8-10.6) k/uL RBC (3.80-5.40) m/uL Neutrophils # (1.3-7.7) k/uL Lymphocytes # (1.0-4.8) k/uL ABG pH 7.65 H* (7.35-7.45) ABG pCO2 24 L (35-45) mmHg ABG HCO3 27 H (21-25) mmol/L ABG Total CO2 28 H (19-24) mmol/L ABG O2 Saturation 98.0 H (94-97) % Sodium 135 L (137-145) mmol/L Chloride 91 L (98-107) mmol/L BUN 63 H (7-17) mg/dL Creatinine 4.48 H (0.52-1.04) mg/dL Glucose 139 H (74-99) mg/dL POC Glucose (mg/dL) 157 H (70-110) mg/dL Plasma Lactic Acid Wesly (0.7-2.0) mmol/L Calcium 6.3 L* (8.4-10.2) mg/dL Phosphorus 4.8 H (2.5-4.5) mg/dL Total Bilirubin 1.4 H (0.2-1.3) mg/dL AST 98366 H (14-36) U/L ALT 8022 H (4-34) U/L Total Protein 4.4 L (6.3-8.2) g/dL Albumin 2.4 L (3.5-5.0) g/dL Microbiology - Last 24 Hours (Table) 08/02/22 03:12 Gram Stain - Preliminary Sputum Sputum Culture - Preliminary 08/01/22 14:54 Urine Culture - Final Urine,Catheterized Assessment and Plan Plan: Gastroenteritis with nausea and vomiting for the last 5 days Urinary tract infection Sepsis as evidenced by leukocytosis, hypotension, and elevated lactic acid Acute hypoxic respiratory failure requiring intubation and mechanical ventilation Severe lactic acidosis Severe dehydration with acute kidney failure, kidney function was normal in March 2022 with a creatinine of 0.71 Elevated liver enzymes, likely related to hypotension with hypoxic liver injury, however possibility of metastatic disease to the liver cannot be ruled out at this time Underlying history of breast cancer Underlying history of recurrent pleural effusion Nodularity in the liver on computed tomography scan with elevated AST and ALT At this time patient is admitted to ICU she is intubated sedated maintained on mechanical ventilation She was started on IV antibiotics Pulmonary critical care, cardiology and nephrology following Prognosis is guarded will follow
[2022-08-03 14:43] LABS: Glucose,Whole Blood 107 mg/dL (70-110)
[2022-08-03 15:23] LABS: Glucose 116 mg/dL (74-99)
[2022-08-03 15:24] LABS: Potassium 5.3 mmol/L (3.5-5.1)
[2022-08-03 15:25] LABS: Phosphorus 12.3 mg/dL (2.5-4.5)
[2022-08-03 15:26] LABS: Magnesium 2.3 mg/dL (1.6-2.3)
[2022-08-03 15:27] LABS: Total Protein 5.7 g/dL (6.3-8.2)
[2022-08-03 15:37] LABS: Total Bilirubin 1.8 mg/dL (0.2-1.3)
[2022-08-03 15:38] LABS: AST 6741 U/L (14-36); Alkaline Phosphatase <20 U/L (38-126)
[2022-08-03 19:58] LABS: Glucose,Whole Blood 98 mg/dL (70-110)
--- NOTE | 2022-08-03 22:20 | PN ---
PROGRESS NOTE SUBJECTIVE: Holli is an 87-year-old lady who developed cardiac arrest in the hospital and is intubated on vent and has renal failure and not making any urine. She has a history of stage IV lung cancer and pleural effusion. We were consulted because of moderate pericardial effusion. This morning, she remains intubated on vent, not making any urine and family is in the process of deciding on comfort care. I performed an echocardiogram on her and it did not reveal any significant pericardial effusion. CT scan probably noted a pericardial fat and interpreted it as pericardial effusion. OBJECTIVE: VITAL SIGNS: Heart rate is 60 beats per minute. Blood pressure is 90/80, respiratory rate is 18. The patient is mechanically ventilated. LABORATORY DATA: Labs show that hemoglobin is 12.1, white cell count is elevated. Potassium is 3.5, BUN is 63, creatinine is 4.4. She has elevated liver enzymes secondary to hypotension. ASSESSMENT: 1. Status post cardiac respiratory arrest. 2. Metastatic lung carcinoma. 3. Pericardial effusion. PLAN: No further cardiac workup at this time and no cardiac intervention. We will see the patient on a p.r.n. basis. MMODL / IJN: [id number] /
[2022-08-03 23:45] LABS: Glucose,Whole Blood 111 mg/dL (70-110)
--- NOTE | 2022-08-04 01:20 | CONS ---
CONSULTATION REASON FOR CONSULT: Acute kidney injury. HISTORY OF PRESENT ILLNESS: The patient is an 87-year-old female with previous history of stage IV lung cancer, COPD, type 2 diabetes, hyperlipidemia, and osteoarthritis. The patient was admitted to the hospital with complaints of increased shortness of breath and abdominal pain. The patient was subsequently intubated. She is currently seen in the ICU. The patient is maintained on 100% FiO2. She also sustained a cardiac arrest. The patient has been significantly hypotensive. She has had no significant urine output. Urine output has been 0 to 5 mL/hr. Serum creatinine was 3.8 yesterday and today it is at 4.1 mg/dL. Potassium is not elevated. PAST MEDICAL HISTORY: Significant for stage IV lung cancer, osteoarthritis, type 2 diabetes, hearing loss, hyperlipidemia, history of pneumonia, UTI, chronic pleural effusions with left pleural cath in place, and history of right breast cancer with lumpectomies. PAST SURGICAL HISTORY: Appendectomy, lumpectomy, cholecystectomy, hysterectomy, thoracentesis, tonsillectomy, breast biopsies, and pleural catheter placement. SOCIAL HISTORY: Positive for smoking in the past. MEDICATIONS: Medications prior to admission included, 1. Aspirin. 2. Zestoretic. 3. Multivitamins. 4. Norvasc. 5. Vitamin C. 6. Zocor. ALLERGIES: Include prednisone causes rash and hives. PHYSICAL EXAMINATION: GENERAL: The patient is currently sedated. She is on the vent. HEART: S1, S2. LUNGS: Bilateral breath sounds are heard. SKIN: The patient is currently having an IJ catheter placed. LOWER EXTREMITIES: No significant edema. [employer]GER [employer]ES: Cannot be performed. LABORATORY DATA: Sodium 137, potassium 5.3, CO2 11, BUN 52, and serum creatinine 4.1. Lactic acid 17.5, phosphorus 12.3. Hemoglobin of 12.4 g/dL. ASSESSMENT: 1. Acute kidney injury secondary to significant hypotension and cardiac arrest, currently oliguric. The patient is not an ideal candidate for renal replacement therapy given her underlying oncological history with stage IV lung cancer. 2. Severe metabolic acidosis associated with acute kidney injury and severe lactic acidosis, currently maintained on bicarb drip. 3. Hyperkalemia associated with acute kidney injury, severe acidosis with oliguric acute kidney injury. 4. Acute hypoxic respiratory failure. 5. Stage IV lung cancer with recurrent pleural effusions. 6. Shock liver. 7. Status post cardiac arrest. 8. History of right breast cancer with lumpectomy. PLAN: Continue with IV bicarb. I would not recommend renal replacement therapy in this patient given her underlying oncological history. Recommend discussion regarding comfort care. We will treat the hyperkalemia with IV medications for now. Thank you for this consultation. We will continue to follow the patient with you during her hospitalization. MMODL / IJN: [id number] /
--- NOTE | 2022-08-04 04:56 | PN ---
PROGRESS NOTE SUBJECTIVE: The patient is seen for followup for acute kidney injury. The patient remains oliguric. She remains on the vent. Family is present at bedside and they are considering comfort care measures. OBJECTIVE: VITAL SIGNS: On examination today, blood pressure was 127/51, heart rate 67 per minute, the patient is afebrile. GENERAL: Examination shows the patient is intubated. She remains on the vent. LOWER EXTREMITIES: Show 1+ edema bilaterally. LABORATORY DATA: Reviewed. Labs show sodium 135, potassium 3.5, BUN 63, serum creatinine 4.48. Hemoglobin is 12.1 g/dL. ASSESSMENT: 1. Acute kidney injury secondary to hypotension and shock and status post cardiac arrest, currently oliguric with no plans for renal replacement therapy. 2. Sepsis. 3. Acute hypoxic respiratory failure, currently on the vent. 4. Hyperkalemia, currently improved. 5. Severe lactic acidosis. 6. Severe hyperphosphatemia associated with acute kidney injury. 7. Shock liver. PLAN: 1. Recommend comfort care. 2. No plans for renal replacement therapy. MMODL / IJN: [id number] /
[2022-08-04 05:28] LABS: Potassium 4.5 mmol/L (3.5-5.1)
[2022-08-04 05:33] LABS: Calcium 6.2 mg/dL (8.4-10.2)
[2022-08-04 05:42] LABS: HCT 35.1 % (34.0-46.0); MCH 32.8 pg (25.0-35.0); MCHC 34.1 g/dL (31.0-37.0); MCV 96.1 fL (80.0-100.0); Mean Platelet Volume 8.4; Platelet Count 212 k/uL (150-450); RBC 3.65 m/uL (3.80-5.40); RDW 13.5 % (11.5-15.5)
[2022-08-04 05:57] LABS: Glucose,Whole Blood 112 mg/dL (70-110)
[2022-08-04 06:29] LABS: Lymphocytes # (M) 0.49 k/uL (1.0-4.8); Monocytes # (M) 0.49 k/uL (0-1.0); Neutrophils # (M) 15.58 k/uL (1.3-7.7); Neutrophils % (M) 95 %; Nucleated Red Blood Cells 2 /100 WBC (0-0); Total Cells Counted 200; WBC 16.4 k/uL (3.8-10.6)
[2022-08-04] MEDS: NOREPINEPHRINE 4 MG in SODIUM CHLORIDE 0.9% 250 ML IV SCH (06:50)
--- NOTE | 2022-08-04 07:02 | XR ---
EXAM: XR Chest, 1 View CLINICAL HISTORY: ITS.REASON XR Reason: Tube placement TECHNIQUE: Frontal view of the chest. COMPARISON: 08/03/2022 FINDINGS: See Impression. IMPRESSION: 1. The enteric tube has been advanced since the prior study and extends below the diaphragm. Distal portion off the edge of image. 2. Rest of the support lines and tubes are stable. 3. Stable bilateral effusions and atelectasis/airspace disease, greater on the right.
[2022-08-04 07:10] VITALS: BP 122/49
[2022-08-04 07:57] LABS: ABG Base Excess 4.7 mmol/L; ABG HCO3 28 mmol/L (21-25); ABG Hematocrit 35 % (34.0-46.0); ABG Oxygen Saturation 97.6 % (94-97); ABG PCO2 35 mmHg (35-45); ABG PH 7.51 (7.35-7.45); ABG PO2 90 mmHg (83-108); ABG TCO2 29 mmol/L (19-24)
[2022-08-04] MEDS: PIPERACILLIN-TAZOBACTAM 3.375 GM in SODIUM CHLORIDE 0.9% 100 ML IVPB SCH (08:00)
[2022-08-04 08:01] LABS: Allen Test Performed? no
[2022-08-04] MEDS: ENOXAPARIN 30 MG/0.3 ML SYRINGE SQ SCH (08:30)
[2022-08-04] MEDS: CHLORHEXIDINE GLUCONATE 15 ML CUP MUCOUS MEM SCH (08:30)
--- NOTE | 2022-08-04 10:35 | P.PN ---
Subjective Patient is seen for follow-up for acute kidney injury currently oliguric. No plans for renal replacement therapy. Patient remains on the vent. FiO2 at 45% Pressors are at the same dose. Urine output remains at 02 5 mL an hour. Family to make a final decision regarding comfort care possibly today. Objective - Vital Signs Vital signs: Vital Signs Temp 97.6 F 08/04/22 08:00 Pulse 70 08/04/22 08:00 Resp 16 08/04/22 08:00 BP 122/49 08/04/22 07:00 Pulse Ox 97 08/04/22 08:00 FiO2 45 08/04/22 08:00 Intake & Output 08/03/22 08/04/22 08/04/22 18:59 06:59 18:59 Intake Total 5229.564 2950.436 214.546 Output Total 8 10 Balance 7609.707 8571.436 214.546 Weight 79 kg Intake: IV 885 728 62 0.9 sodium chloride 110 78 12 pressure bag Calcium Gluconate in NaCl 100 1 gm In Saline 1 100ml. bag @ 100 mls/hr IVPB ONCE ONE Rx#:[id number] Dextrose 5% in Water 1, 75 000 ml @ 75 mls/hr IV . [id number] [facility] with Sodium Bicarb (1 Meq/ml) 150 ml Rx#:[id number] Potassium Chloride 20 meq 200 In Water For Injection 1 100ml.bag @ 50 mls/hr IVPB Q2H [facility] Rx#: [id number] Sodium Chloride 0.9% 1, 300 650 50 000 ml @ 50 mls/hr IV . Q20H [facility] Rx#:[id number] Zosyn 100 Intake, IV Titration 428.139 544.436 152.546 Amount Norepinephrine 4 mg In 277.271 456.227 121.779 Sodium Chloride 0.9% 250 ml @ 0.05 MCG/KG/MIN 12. 097 mls/hr IV .Q21H [facility] Rx#:[id number] propofoL 1,000 mg In 150.868 88.209 30.767 Empty Bag 1 bag @ 5 MCG/ KG/MIN 1.905 mls/hr IV . 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 - Labs CBC & Chem 7: 08/04/22 04:38 08/04/22 04:38 Labs: Abnormal Lab Results - Last 24 Hours (Table) 08/02/22 08/03/22 08/04/22 Range/Units 05:01 23:43 04:38 WBC 16.4 H (3.8-10.6) k/uL RBC 3.65 L (3.80-5.40) m/uL Neutrophils # (Manual) 15.58 H (1.3-7.7) k/uL Lymphocytes # (Manual) 0.49 L (1.0-4.8) k/uL Nucleated RBCs 2 H (0-0) /100 WBC ABG pH (7.35-7.45) ABG HCO3 (21-25) mmol/L ABG Total CO2 (19-24) mmol/L ABG O2 Saturation (94-97) % Sodium (137-145) mmol/L Potassium 5.3 H (3.5-5.1) mmol/L Chloride (98-107) mmol/L BUN (7-17) mg/dL Creatinine (0.52-1.04) mg/dL Glucose 116 H (74-99) mg/dL POC Glucose (mg/dL) 111 H (70-110) mg/dL Calcium (8.4-10.2) mg/dL Phosphorus 12.3 H* (2.5-4.5) mg/dL Total Bilirubin 1.8 H (0.2-1.3) mg/dL AST 6741 H (14-36) U/L Alkaline Phosphatase <20 L (38-126) U/L Total Protein 5.7 L (6.3-8.2) g/dL Albumin 3.0 L (3.5-5.0) g/dL 08/04/22 08/04/22 08/04/22 Range/Units 04:38 05:56 07:55 WBC (3.8-10.6) k/uL RBC (3.80-5.40) m/uL Neutrophils # (Manual) (1.3-7.7) k/uL Lymphocytes # (Manual) (1.0-4.8) k/uL Nucleated RBCs (0-0) /100 WBC ABG pH 7.51 H (7.35-7.45) ABG HCO3 28 H (21-25) mmol/L ABG Total CO2 29 H (19-24) mmol/L ABG O2 Saturation 97.6 H (94-97) % Sodium 134 L (137-145) mmol/L Potassium (3.5-5.1) mmol/L Chloride 94 L (98-107) mmol/L BUN 75 H (7-17) mg/dL Creatinine 5.47 H (0.52-1.04) mg/dL Glucose 101 H (74-99) mg/dL POC Glucose (mg/dL) 112 H (70-110) mg/dL Calcium 6.2 L* (8.4-10.2) mg/dL Phosphorus (2.5-4.5) mg/dL Total Bilirubin (0.2-1.3) mg/dL AST (14-36) U/L Alkaline Phosphatase (38-126) U/L Total Protein (6.3-8.2) g/dL Albumin (3.5-5.0) g/dL Microbiology - Last 24 Hours (Table) 08/02/22 03:12 Gram Stain - Final Sputum Sputum Culture - Final 08/02/22 11:47 Blood Culture - Preliminary Blood No Growth after 24 hours Assessment and Plan Assessment: 1. Acute kidney injury ATN secondary to hypotension and cardiac arrest 2. Status post cardiac arrest 3. Stage IV lung cancer 4. Acute hypoxic respiratory failure currently on the vent 5. Shock liver 6. Severe lactic acidosis 7. Hyperkalemia associated with acute kidney injury currently improved Plan: No plans for renal replacement therapy given the underlying comorbidities and stage IV lung cancer Recommend comfort care measures
[2022-08-04 12:24] VITALS: TEMP 98
[2022-08-04 12:24] LABS: Glucose,Whole Blood 119 mg/dL (70-110)
--- NOTE | 2022-08-04 12:57 | P.PN ---
Subjective Progress Note Date: 08/04/22 Principal diagnosis: Acute hypoxic respiratory failure, sepsis and septic shock, multisystem organ failure. This is an 87-year-old female patient with a known history of diabetes mellitus, hyperlipidemia, hypertension, osteoarthritis, right sided breast cancer with previous lumpectomy 2. She was recently found to have stage IV adenocarcinoma of the lung following thoracentesis 2. She also had a Pleurx catheter placed to the left chest on 04/06/2022. She did receive some form of treatment in April. She presented to the emergency room yesterday with complaints of nausea and vomiting for 5 days prior. She also was having increasing shortness of breath especially with conversation. Diffuse abdominal discomfort. X-ray revealed a small left pleural effusion and left lower lobe patchy airspace opacity with left chest tube in place. Evidence of COPD. Computed tomography scan of the abdomen and pelvis revealed small volume ascites throughout the abdomen and pelvis. Subtle nodularity and widening of the fissures of the liver with some possible cirrhosis. Distal colonic diverticulosis without diverticulitis. Trace left and small right pleural effusions with by basilar patchy airspace disease. Moderate sized paracardial effusion. If she was admitted to the intensive care unit last evening around 20:55 and was found to be quite hypoxemic with O2 saturation of 76% on 100% FiO2. She was subsequently intubated and placed on mechanical ventilator. Shortly after midnight she developed pulseless electrical activity and received 10 minutes of CPR with 2 A of epinephrine and a total of 6 A of sodium bicarbonate. She did develop return of spontaneous circulation. She is seen this morning in consultation in the ICU. She is currently on the mechanical ventilator at a rate of 28, FiO2 60%, tidal volume 500, PEEP of 10. Peak pressure 37, plateau pressure 32. supply assistant blood gases revealed a pO2 of 77, pCO2 31, pH 7.34 on 60% FiO2. And, she is sedated on propofol at 40 mcg/kg/m. Requiring norepinephrine at 0.3 mcg/kg/m which is approximately 21 g. She is receiving D5W with 3 A of bicarb at 150 ML's per hour. She was initiated on vancomycin and Zosyn. She developed multiply system organ failure. Urine output has decreased with only 20 ML's output this morning. Urine and sputum cultures pending. White count 21.1. Hemoglobin 9.9. Platelets 253. Follow-up arterial blood gases revealed a pO2 of 107, pCO2 24, pH 7.53 on 50% FiO2. Lactic acid 12.2. Sodium 137. Potassium 5.3. Bicarb 11. BUN 52. Creatinine 4.13. Glucose 116. AST 6741. ALT 4990. Patient was reevaluated today on 08/03/22, patient remains in the ICU intubated and mechanically ventilated. She is on assist control rate of 20 to tell volume 500 FiO2 50% and PEEP of 8. ABG showed a pO2 of 99 pCO2 24 pH of 7.65. Hence her rate was cut down to 16 FiO2 cut down to 45%. Patient remains on IV fluid at 50 mL/h, she is off bicarb drip, on propofol at 30 mcg/kg/m, and norepinephrine was cut down to 0.1 mcg/kg/m. Patient remains oliguric, and she is being followed by nephrology, may have to consider hemodialysis, but that's yet to be decided by nephrology on the case. Chest x-ray is suggestive of pulmonary edema, underlying pneumonia is not entirely ruled out but felt to be less likely. Sputum cultures are pending urine cultures are negative patient r emains on Zosyn empirically. WBC count today is 20.6, hemoglobin is 12.1. Electrolytes are normal however BUN is 63 creatinine 4.48. Liver profile is quite abnormal with AST up to 12,126 and ALT of 8022, albumin is 2.4. Daughter was brought in to bedside, discussed the clinical status with the daughter, and she is now DO NOT RESUSCITATE, daughter may consider going to comfort care measures she is undecided yet. Reevaluated today on 08/04/22, patient remains in the ICU, intubated and mechanica lly ventilated. Patient remains assist control rate 16 tell volume 500 FiO2 45% PEEP of 8 however after reviewing the ABG I cut down the rate to 14 and PEEP down to 5. Her ABG prior to the ventilator change showed a pO2 of 90 pCO2 35 pH of 7.5. Patient remains sedated, on propofol at 20 mcg/kg/m, norepinephrine at 0.15 mcg/kg/m, IV fluid is 0.9 at 10 mL per hour. Patient remains anuric, no urine output over the last 12 hours, seen by nephrology and did not recommend renal replacement therapy. Clearly the patient has very poor prognosis, and she has multisystem organ failure, and I already explained to the daughter that hemodialysis would not be of much value as far as the overall prognosis. Daughter is yet to decide on ostomy comfort care measures. Chest x-ray continues to show pleural effusions and some airspace disease bilaterally. With associated atelectasis greater on the right. WBC 16.4 hemoglobin is 12 electrolytes are normal however BUN is up to 75 creatinine is up to 5.47. Objective - Vital Signs Vital signs: Vital Signs Temp 98.0 F 08/04/22 12:00 Pulse 75 08/04/22 12:00 Resp 15 08/04/22 12:00 BP 122/49 08/04/22 07:00 Pulse Ox 96 08/04/22 12:00 FiO2 45 08/04/22 12:00 Intake & Output 08/03/22 08/04/22 08/04/22 18:59 06:59 18:59 Intake Total 7750.145 6107.436 490.817 Output Total 8 10 0 Balance 0922.933 7695.436 490.817 Weight 79 kg Intake: IV 885 728 230 0.9 sodium chloride 110 78 30 pressure bag Calcium Gluconate in NaCl 100 1 gm In Saline 1 100ml. bag @ 100 mls/hr IVPB ONCE ONE Rx#:[id number] Dextrose 5% in Water 1, 75 000 ml @ 75 mls/hr IV . [id number] ESPINOZA with Sodium Bicarb (1 Meq/ml) 150 ml Rx#:[id number] Potassium Chloride 20 meq 200 In Water For Injection 1 100ml.bag @ 50 mls/hr IVPB Q2H ESPINOZA Rx#: [id number] Sodium Chloride 0.9% 1, 300 650 200 000 ml @ 50 mls/hr IV . Q20H ESPINOZA Rx#:[id number] Zosyn 100 Intake, IV Titration 428.139 544.436 260.817 Amount Norepinephrine 4 mg In 277.271 456.227 230.050 Sodium Chloride 0.9% 250 ml @ 0.05 MCG/KG/MIN 12. 097 mls/hr IV .Q21H ESPINOZA Rx#:[id number] propofoL 1,000 mg In 150.868 88.209 30.767 Empty Bag 1 bag @ 5 MCG/ KG/MIN 1.905 mls/hr IV . Q24H ESPINOZA Rx#:[id number] Output: Urine 8 10 0 Other: Voiding Method Indwelling Catheter Indwelling Catheter Indwelling Catheter ABP, PAP, CO, CI - Last Documented Arterial Blood Pressure 111/45 - Exam GENERAL EXAM: Revealed an 87-year-old female, intubated, sedated, on propofol, not in distress.. HEAD: Normocephalic. Atraumatic. EYES: Patient will, EOMI, nonicteric NOSE: Clear with pink turbinates. THROAT: Endotracheal, gastric tube secured in place No erythema or exudates. NECK: No masses, no JVD. CHEST: No chest wall deformity. LUNGS: Scattered crackles and rhonchi bilaterally. CVS: S1 and S2 normal with no audible murmur, regular rhythm. ABDOMEN: No hepatosplenomegaly, normal bowel sounds, no guarding or rigidity. SKIN: No rashes CENTRAL NERVOUS SYSTEM: Unable to assess, patient is sedated and mechanically ventilated. Psychiatric: Cannot assess. EXTREMITIES: There is trace of bipedal edema. No clubbing, no cyanosis. Peripheral pulses are intact. - Labs CBC & Chem 7: 08/04/22 04:38 08/04/22 04:38 Labs: Abnormal Lab Results - Last 24 Hours (Table) 08/02/22 08/03/22 08/04/22 Range/Units 05:01 23:43 04:38 WBC 16.4 H (3.8-10.6) k/uL RBC 3.65 L (3.80-5.40) m/uL Neutrophils # (Manual) 15.58 H (1.3-7.7) k/uL Lymphocytes # (Manual) 0.49 L (1.0-4.8) k/uL Nucleated RBCs 2 H (0-0) /100 WBC ABG pH (7.35-7.45) ABG HCO3 (21-25) mmol/L ABG Total CO2 (19-24) mmol/L ABG O2 Saturation (94-97) % Sodium (137-145) mmol/L Potassium 5.3 H (3.5-5.1) mmol/L Chloride (98-107) mmol/L BUN (7-17) mg/dL Creatinine (0.52-1.04) mg/dL Glucose 116 H (74-99) mg/dL POC Glucose (mg/dL) 111 H (70-110) mg/dL Calcium (8.4-10.2) mg/dL Phosphorus 12.3 H* (2.5-4.5) mg/dL Total Bilirubin 1.8 H (0.2-1.3) mg/dL AST 6741 H (14-36) U/L Alkaline Phosphatase <20 L (38-126) U/L Total Protein 5.7 L (6.3-8.2) g/dL Albumin 3.0 L (3.5-5.0) g/dL 08/04/22 08/04/22 08/04/22 Range/Units 04:38 05:56 07:55 WBC (3.8-10.6) k/uL RBC (3.80-5.40) m/uL Neutrophils # (Manual) (1.3-7.7) k/uL Lymphocytes # (Manual) (1.0-4.8) k/uL Nucleated RBCs (0-0) /100 WBC ABG pH 7.51 H (7.35-7.45) ABG HCO3 28 H (21-25) mmol/L ABG Total CO2 29 H (19-24) mmol/L ABG O2 Saturation 97.6 H (94-97) % Sodium 134 L (137-145) mmol/L Potassium (3.5-5.1) mmol/L Chloride 94 L (98-107) mmol/L BUN 75 H (7-17) mg/dL Creatinine 5.47 H (0.52-1.04) mg/dL Glucose 101 H (74-99) mg/dL POC Glucose (mg/dL) 112 H (70-110) mg/dL Calcium 6.2 L* (8.4-10.2) mg/dL Phosphorus (2.5-4.5) mg/dL Total Bilirubin (0.2-1.3) mg/dL AST (14-36) U/L Alkaline Phosphatase (38-126) U/L Total Protein (6.3-8.2) g/dL Albumin (3.5-5.0) g/dL 08/04/22 Range/Units 12:12 WBC (3.8-10.6) k/uL RBC (3.80-5.40) m/uL Neutrophils # (Manual) (1.3-7.7) k/uL Lymphocytes # (Manual) (1.0-4.8) k/uL Nucleated RBCs (0-0) /100 WBC ABG pH (7.35-7.45) ABG HCO3 (21-25) mmol/L ABG Total CO2 (19-24) mmol/L ABG O2 Saturation (94-97) % Sodium (137-145) mmol/L Potassium (3.5-5.1) mmol/L Chloride (98-107) mmol/L BUN (7-17) mg/dL Creatinine (0.52-1.04) mg/dL Glucose (74-99) mg/dL POC Glucose (mg/dL) 119 H (70-110) mg/dL Calcium (8.4-10.2) mg/dL Phosphorus (2.5-4.5) mg/dL Total Bilirubin (0.2-1.3) mg/dL AST (14-36) U/L Alkaline Phosphatase (38-126) U/L Total Protein (6.3-8.2) g/dL Albumin (3.5-5.0) g/dL Microbiology - Last 24 Hours (Table) 08/02/22 03:12 Gram Stain - Final Sputum Sputum Culture - Final 08/02/22 11:47 Blood Culture - Preliminary Blood No Growth after 24 hours Assessment and Plan Assessment: Impression: Acute on chronic hypoxic respiratory failure secondary to sepsis, septic shock, ARDS, possible pneumonia. Underlying COPD Acute cardiac arrest requiring 10 minutes of CPR until the return of spontaneous circulation. Initial presentation of abdominal pain with nausea and vomiting of 5 day duration. Multi system organ failure. Secondary to above. Shocked liver. 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 Hypertension. History of breast cancer and previous lumpectomy/right breast Chronic hypoxic respiratory failure, maintained on 3 L nasal cannula outpatient basis. Recommendation: We will discuss with family again possibly going for comfort care measures. In the meantime: Continue ventilatory support. Continue hemodynamic support, patient is on norepinephrineN start nutritional support/enteral feeding GI and DVT prophylaxis. NeIs not recommending hemodialysis Continue empiric antibiotics. Vancomycin and Zosyn. Continue updrafts/DuoNeb. Hold sedation and assessment of status today if possible DO NOT RESUSCITATE CODE STATUS, Family is yet to decide regarding comfort care measures since the prognosis is extremely poor critical care time is over 30 minutes. We'll continue to follow in the ICU. Time with Patient: Greater than 30
[2022-08-04 13:41] VITALS: BMI 34.0
[2022-08-04] MEDS ORDERED: MORPHINE SULFATE 2 MG/ML SYRINGE IV PRN (14:38)
[2022-08-04] MEDS ORDERED: GLYCOPYRROLATE 0.2 MG/ML 2 ML VIAL IVP PRN (14:38)
[2022-08-04] MEDS ORDERED: MORPHINE SULFATE 2 MG/ML SYRINGE IVP ONE (15:00)
[2022-08-04] MEDS: SODIUM CHLORIDE 0.9% 1,000 ML IV SCH (15:00)
[2022-08-04] MEDS ORDERED: LORazepam 1 MG/0.5 ML VIAL ONE (15:09)
[2022-08-04] MEDS: LORazepam 2 MG/ML INJ IV PRN ×2 (15:15→15:30)
[2022-08-04] MEDS ORDERED: MORPHINE SULFATE (100 MG/2 ML) 100 MG in SODIUM CHLORIDE 0.9% 100 ML IV SCH (15:30)
[2022-08-04 15:36] VITALS: PULSE 133; RESP 26
--- NOTE | 2022-08-04 22:50 | P.PN ---
Subjective Diagnoses: Acute on chronic hypoxic respiratory failure requiring intubation and mechanical ventilation septic shock ARDS, possible pneumonia. Underlying COPD Acute cardiac arrest requiring 10 minutes of CPR Possible gastroenteritis present on admission Multi system organ failure. Secondary to above. Shocked liver. 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 Hypertension. History of breast cancer and previous lumpectomy/right breast Chronic hypoxic respiratory failure, maintained on 3 L nasal cannula outpatient basis. Hospital course Patient was admitted to the ICU with acute hypoxic respiratory failure and septic shock and ARDS and possible pneumonia. She is intubated and on mechanical ventilation, she is status post cardiac arrest requiring 10 minutes of CPR resuscitation. She continued to be in shock state requiring pressors and levophed for blood pressure support Her hospital course has been complicated by multiorgan failure including acute kidney injury, lactic acidosis, metabolic encephalopathy also she developed shock liver. Despite resuscitation and aggressive treatment with medication she she kept doing worse, family were considering comfort care. Eventually patient on 16:25. Please refer to nursing note for more details Physical exam prior to expiration -Gen: patient is a sedated and intubated CVS: S1-S2, RRR, no murmur -Lungs: Bilateral decrease air entry, bilateral crepitation Abdomen: soft, no distention, no tenderness, positive bowel sounds -Extremity: Bilateral leg edema with some induration Time spent more than 35 minutes Objective - Vital Signs Vital signs: Vital Signs Temp 98.0 F 08/04/22 12:00 Pulse 75 08/04/22 12:00 Resp 15 08/04/22 12:00 BP 122/49 08/04/22 07:00 Pulse Ox 96 08/04/22 12:00 FiO2 45 08/04/22 12:00 Intake & Output 08/03/22 08/04/22 08/04/22 18:59 06:59 18:59 Intake Total 4771.858 3550.436 490.817 Output Total 8 10 0 Balance 1866.116 2844.436 490.817 Weight 79 kg 79 kg Intake: IV 885 728 230 0.9 sodium chloride 110 78 30 pressure bag Calcium Gluconate in NaCl 100 1 gm In Saline 1 100ml. bag @ 100 mls/hr IVPB ONCE ONE Rx#:[id number] Dextrose 5% in Water 1, 75 000 ml @ 75 mls/hr IV . [id number] ESPINOZA with Sodium Bicarb (1 Meq/ml) 150 ml Rx#:[id number] Potassium Chloride 20 meq 200 In Water For Injection 1 100ml.bag @ 50 mls/hr IVPB Q2H ESPINOZA Rx#: [id number] Sodium Chloride 0.9% 1, 300 650 200 000 ml @ 50 mls/hr IV . Q20H ESPINOZA Rx#:[id number] Zosyn 100 Intake, IV Titration 428.139 544.436 260.817 Amount Norepinephrine 4 mg In 277.271 456.227 230.050 Sodium Chloride 0.9% 250 ml @ 0.05 MCG/KG/MIN 12. 097 mls/hr IV .Q21H ESPINOZA Rx#:[id number] propofoL 1,000 mg In 150.868 88.209 30.767 Empty Bag 1 bag @ 5 MCG/ KG/MIN 1.905 mls/hr IV . Q24H ESPINOZA Rx#:[id number] Output: Urine 8 10 0 Other: Voiding Method Indwelling Catheter Indwelling Catheter Indwelling Catheter ABP, PAP, CO, CI - Last Documented Arterial Blood Pressure 111/45 - Labs CBC & Chem 7: 08/04/22 04:38 08/04/22 04:38 Labs: Abnormal Lab Results - Last 24 Hours (Table) 08/02/22 08/03/22 08/04/22 Range/Units 05:01 23:43 04:38 WBC 16.4 H (3.8-10.6) k/uL RBC 3.65 L (3.80-5.40) m/uL Neutrophils # (Manual) 15.58 H (1.3-7.7) k/uL Lymphocytes # (Manual) 0.49 L (1.0-4.8) k/uL Nucleated RBCs 2 H (0-0) /100 WBC ABG pH (7.35-7.45) ABG HCO3 (21-25) mmol/L ABG Total CO2 (19-24) mmol/L ABG O2 Saturation (94-97) % Sodium (137-145) mmol/L Potassium 5.3 H (3.5-5.1) mmol/L Chloride (98-107) mmol/L BUN (7-17) mg/dL Creatinine (0.52-1.04) mg/dL Glucose 116 H (74-99) mg/dL POC Glucose (mg/dL) 111 H (70-110) mg/dL Calcium (8.4-10.2) mg/dL Phosphorus 12.3 H* (2.5-4.5) mg/dL Total Bilirubin 1.8 H (0.2-1.3) mg/dL AST 6741 H (14-36) U/L Alkaline Phosphatase <20 L (38-126) U/L Total Protein 5.7 L (6.3-8.2) g/dL Albumin 3.0 L (3.5-5.0) g/dL 08/04/22 08/04/22 08/04/22 Range/Units 04:38 05:56 07:55 WBC (3.8-10.6) k/uL RBC (3.80-5.40) m/uL Neutrophils # (Manual) (1.3-7.7) k/uL Lymphocytes # (Manual) (1.0-4.8) k/uL Nucleated RBCs (0-0) /100 WBC ABG pH 7.51 H (7.35-7.45) ABG HCO3 28 H (21-25) mmol/L ABG Total CO2 29 H (19-24) mmol/L ABG O2 Saturation 97.6 H (94-97) % Sodium 134 L (137-145) mmol/L Potassium (3.5-5.1) mmol/L Chloride 94 L (98-107) mmol/L BUN 75 H (7-17) mg/dL Creatinine 5.47 H (0.52-1.04) mg/dL Glucose 101 H (74-99) mg/dL POC Glucose (mg/dL) 112 H (70-110) mg/dL Calcium 6.2 L* (8.4-10.2) mg/dL Phosphorus (2.5-4.5) mg/dL Total Bilirubin (0.2-1.3) mg/dL AST (14-36) U/L Alkaline Phosphatase (38-126) U/L Total Protein (6.3-8.2) g/dL Albumin (3.5-5.0) g/dL 08/04/22 Range/Units 12:12 WBC (3.8-10.6) k/uL RBC (3.80-5.40) m/uL Neutrophils # (Manual) (1.3-7.7) k/uL Lymphocytes # (Manual) (1.0-4.8) k/uL Nucleated RBCs (0-0) /100 WBC ABG pH (7.35-7.45) ABG HCO3 (21-25) mmol/L ABG Total CO2 (19-24) mmol/L ABG O2 Saturation (94-97) % Sodium (137-145) mmol/L Potassium (3.5-5.1) mmol/L Chloride (98-107) mmol/L BUN (7-17) mg/dL Creatinine (0.52-1.04) mg/dL Glucose (74-99) mg/dL POC Glucose (mg/dL) 119 H (70-110) mg/dL Calcium (8.4-10.2) mg/dL Phosphorus (2.5-4.5) mg/dL Total Bilirubin (0.2-1.3) mg/dL AST (14-36) U/L Alkaline Phosphatase (38-126) U/L Total Protein (6.3-8.2) g/dL Albumin (3.5-5.0) g/dL Microbiology - Last 24 Hours (Table) 08/02/22 11:47 Blood Culture - Preliminary Blood No Growth after 48 hours 08/02/22 03:12 Gram Stain - Final Sputum Sputum Culture - Final
== END 2022-08-04 18:35 | disposition expired | DRG 871 ==
LOC: EC 11:57 → 3SCARD 14:30 → 2SICU 20:57
PROVIDERS: ADMIT Internal Medicine; ATTEND Internal Medicine
PROC: 3E033XZ Introduction of Vasopressor into Peripheral Vein, Percutaneous Approach (ICD-10-PCS; principal; 2022-08-02)
PROC: 0BH17EZ Insertion of Endotracheal Airway into Trachea, Via Natural or Artificial Opening (ICD-10-PCS; 2022-08-02)
PROC: 5A1945Z Respiratory Ventilation, 24-96 Consecutive Hours (ICD-10-PCS; 2022-08-02)
PROC: 05H533Z Insertion of Infusion Device into Right Subclavian Vein, Percutaneous Approach (ICD-10-PCS; 2022-08-02)
PROC: 03HY32Z Insertion of Monitoring Device into Upper Artery, Percutaneous Approach (ICD-10-PCS; 2022-08-02)
PROC: 4A133B1 Monitoring of Arterial Pressure, Peripheral, Percutaneous Approach (ICD-10-PCS; 2022-08-02)
PROC: 4A133J1 Monitoring of Arterial Pulse, Peripheral, Percutaneous Approach (ICD-10-PCS; 2022-08-02)
PROC: 5A12012 Performance of Cardiac Output, Single, Manual (ICD-10-PCS; 2022-08-02)
DX: A41.9 Sepsis, unspecified organism (principal); G93.41 Metabolic encephalopathy; J18.9 Pneumonia, unspecified organism; R65.21 Severe sepsis with septic shock; N17.0 Acute kidney failure with tubular necrosis; K72.00 Acute and subacute hepatic failure without coma; J80 Acute respiratory distress syndrome; E87.2 Acidosis; J44.0 Chronic obstructive pulmonary disease with (acute) lower respiratory infection; J91.0 Malignant pleural effusion; N39.0 Urinary tract infection, site not specified; I31.3 Pericardial effusion (noninflammatory); C34.90 Malignant neoplasm of unspecified part of unspecified bronchus or lung; E11.9 Type 2 diabetes mellitus without complications; E78.5 Hyperlipidemia, unspecified; K52.9 Noninfective gastroenteritis and colitis, unspecified; M19.90 Unspecified osteoarthritis, unspecified site; Z51.5 Encounter for palliative care; Z66 Do not resuscitate; E87.5 Hyperkalemia; E83.39 Other disorders of phosphorus metabolism; H91.90 Unspecified hearing loss, unspecified ear; I10 Essential (primary) hypertension; K57.30 Diverticulosis of large intestine without perforation or abscess without bleeding; I46.9 Cardiac arrest, cause unspecified; Z85.3 Personal history of malignant neoplasm of breast; Z88.8 Allergy status to other drugs, medicaments and biological substances; Z79.82 Long term (current) use of aspirin; Z79.899 Other long term (current) drug therapy; Z99.81 Dependence on supplemental oxygen; Z87.891 Personal history of nicotine dependence; Z87.01 Personal history of pneumonia (recurrent); Z87.440 Personal history of urinary (tract) infections
CPT/HCPCS: 36415; 36600; 71045; 71046; 74176; 80048; 80053; 81001; 82805; 83605; 83690; 83735; 84100; 84484; 85025; 85610; 85730; 87040; 87070; 87086; 87205; 93005; 93306; 94002; 94003; 94660; 96361; 96365; 96366; 96367; 96375; 99291